=== PATIENT | male | born 1965 | race Caucasian/White ===

== ENCOUNTER 2016-05-17 18:04 | Emergency (ER) | payer BC ==
--- NOTE | 2016-05-17 18:33 | Emergency Department Report ---
Chief Complaint: Neuro Symptoms/Deficit Stated Complaint: STROKE SYMPTOMS Time Seen by Provider: 05/17/16 18:26 - HPI History of Present Illness: 51-year-old male presents today with sudden onset of headache times one hour. Positive for history of headaches but states this is worse than ever. Positive for decreased vision and photophobia. Also complaining of chest pain with left arm involvement. Denies nausea, vomiting, fever, chills, abdominal pain, shortness of breath. - ROS Review of Systems: Per HPI - Exam Vital Signs: Vital Signs 05/17/16 18:08 Temperature 98.6 F Pulse Rate 82 Respiratory 18 Rate Blood Pressure 130/86 O2 Sat by Pulse 99 Oximetry Physical Exam: General: 51-year-old male in no acute distress. Well-developed, well-nourished. CV: Regular rate and rhythm. Lungs: Clear to auscultation bilaterally. 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 Due to findings the following was ordered: ED Disposition for MSE Condition: Stable
--- NOTE | 2016-05-17 19:02 | Cat Scan Report ---
FINAL REPORT EXAM: CT HEAD/BRAIN WO CON HISTORY: suspected stroke headaches and dizziness TECHNIQUE: Standard unenhanced CT of the head at 5.0 millimeter axial increments PRIORS: None. FINDINGS: The ventricular system is normal in size and configuration. There is no evidence for parenchymal volume loss. There is no evidence for mass lesion, mass effect, midline shift, acute intracranial hemorrhage, or acute ischemia/ infarction. Visualized paranasal sinuses demonstrates mild mucosal thickening in the inferior left maxillary sinus. IMPRESSION: No acute intracranial process noted. Mild mucosal thickening in the left maxillary sinus
[2016-05-17 20:12] LABS: Basophils % (Auto) 0.4 % (0.0-1.8); Eosinophils % (Auto) 2.1 % (0.0-4.3); Hematocrit 42.7 % (35.5-45.6); Hemoglobin 14.1 gm/dl (11.8-15.2); Mean Corpuscular HGB Conc 33 % (32-34); Mean Corpuscular Hemoglobin 30 pg (28-32); Mean Corpuscular Volume 89 fl (84-94); Platelet Count 182 K/mm3 (140-440); Red Blood Count 4.78 M/mm3 (3.65-5.03); Red Cell Distribution Width 14.1 % (13.2-15.2); White Blood Count 8.1 K/mm3 (4.5-11.0)
[2016-05-17 20:19] LABS: INR 1.11 (0.87-1.13)
[2016-05-17 20:20] LABS: Partial Thromboplastin Time 30.9 Sec. (24.2-36.6)
[2016-05-17 20:29] LABS: Creatine Kinase MB 3.1 ng/mL (0.0-4.0)
[2016-05-17 20:33] LABS: Anion Gap 16 mmol/L; BUN/Creatinine Ratio 6.66; Blood Urea Nitrogen 6 mg/dL (9-20); Calcium 8.5 mg/dL (8.4-10.2); Carbon Dioxide 26 mmol/L (22-30); Chloride 103.6 mmol/L (98-107); Creatine Kinase 334 units/L (55-170); Glucose 125 mg/dL (75-100); Potassium 3.5 mmol/L (3.6-5.0); Sodium 142 mmol/L (137-145)
[2016-05-17 22:56] VITALS: BP 121/74
--- NOTE | 2016-05-19 14:25 | ED Elopement Review ---
ED Pt Elopement review - Results review Lab results: Laboratory Tests 05/17/16 05/17/16 05/17/16 18:16 19:23 19:23 WBC 8.1 RBC 4.78 Hgb 14.1 Hct 42.7 MCV 89 MCH 30 MCHC 33 RDW 14.1 Plt Count 182 Lymph % (Auto) 22.4 [place] % (Auto) 7.4 H Eos % (Auto) 2.1 Baso % (Auto) 0.4 Lymph # 1.8 [place] # 0.6 Eos # 0.2 Baso # 0.0 Seg Neutrophils % 67.7 Seg Neutrophils # 5.5 PT 14.2 INR 1.11 APTT 30.9 Thrombin Time 15.7 Sodium Potassium Chloride Carbon Dioxide Anion Gap BUN Creatinine Estimated GFR BUN/Creatinine Ratio Glucose POC Glucose 107 H Calcium Total Creatine Kinase CK-MB (CK-2) Rel Index Troponin T 05/17/16 19:23 WBC RBC Hgb Hct MCV MCH MCHC RDW Plt Count Lymph % (Auto) [place] % (Auto) Eos % (Auto) Baso % (Auto) Lymph # [place] # Eos # Baso # Seg Neutrophils % Seg Neutrophils # PT INR APTT Thrombin Time Sodium 142 Potassium 3.5 L Chloride 103.6 Carbon Dioxide 26 Anion Gap 16 BUN 6 L Creatinine 0.9 Estimated GFR > 60 BUN/Creatinine Ratio 6.66 Glucose 125 H POC Glucose Calcium 8.5 Total Creatine Kinase 334 H CK-MB (CK-2) Rel Index 0.9 Troponin T < 0.010 - Call Back decision Pt Call Back Decision: Call pt to return to ED [facility] (chest pain and shortness of breath should be further evaluated)
== END 2016-05-17 22:58 | disposition left against medical advice (07) ==
LOC: ED 18:04
DX: R51 Headache (principal); R07.9 Chest pain, unspecified; Z53.21 Procedure and treatment not carried out due to patient leaving prior to being seen by health care provider
CPT/HCPCS: 36415; 70450; 80048; 82550; 82553; 82962; 84484; 85025; 85610; 85670; 85730; 93005; 93010

== ENCOUNTER 2017-09-02 03:07 | Emergency (ER) | payer BC ==
[2017-09-02] MEDS ORDERED: ASPIRIN PO ONE (03:28)
[2017-09-02 03:54] LABS: Basophils % (Auto) 0.4 % (0.0-1.8); Eosinophils # (Auto) 0.1 K/mm3 (0.0-0.4); Eosinophils % (Auto) 0.9 % (0.0-4.3); Hematocrit 44.7 % (35.5-45.6); Hemoglobin 15.3 gm/dl (11.8-15.2); Lymphocytes % (Auto) 31.5 % (13.4-35.0); Mean Corpuscular HGB Conc 34 % (32-34); Mean Corpuscular Hemoglobin 31 pg (28-32); Mean Corpuscular Volume 90 fl (84-94); Monocytes # (Auto) 0.5 K/mm3 (0.0-0.8); Monocytes % (Auto) 8.2 % (0.0-7.3); Platelet Count 165 K/mm3 (140-440); Red Blood Count 4.99 M/mm3 (3.65-5.03); Red Cell Distribution Width 14.2 % (13.2-15.2)
[2017-09-02 04:18] LABS: BUN/Creatinine Ratio 9; Blood Urea Nitrogen 7 mg/dL (9-20); Calcium 8.3 mg/dL (8.4-10.2); Hemolysis Index 3
--- NOTE | 2017-09-02 04:26 | XRay Report ---
FINAL REPORT EXAM: XR CHEST ROUTINE 2V HISTORY: SOB. TECHNIQUE: Frontal and lateral radiographs of the chest were obtained. No prior studies are available for comparison. FINDINGS: The cardiac silhouette and mediastinum are within normal limits. There is minimal biapical pleural thickening/scarring. The lungs are otherwise clear bilaterally, without focal infiltrate or effusion. There is no pneumothorax. Mild spondylotic changes seen in the mid mid thoracic spine. IMPRESSION: No active disease seen in the chest.
--- NOTE | 2017-09-02 06:07 | Emergency Department Report ---
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 He has experienced constant chest pain for the past 3 days it is substernal and described as a "knot". It does not radiate. It is made clearly worse by bending or twisting or sitting up in the gurney. The patient states he's had cough with occasional brown sputum. He also states that it deep inspiration only accentuates the pain. However, it clearly is augmented by simple movement of the torso. The patient was concerned because he got nauseated yesterday. He has not been sweaty or short of breath. He denies any recent travel. The patient reports that admission [facility] 2 or 3 years ago with negative stress testing. He states he was treated for congestive heart failure which was "due to stress". He states that this went away on its own and he does not need any further medication. MD Complaint: chest pain -: days(s) Pain Radiation: none - Related Data Previous Rx's Medication Instructions Recorded Last Taken Type Azithromycin [Zithromax Z-OBDULIO] 250 mg PO DAILY #6 tab 09/02/17 Unknown Rx traMADol [Ultram] 50 mg PO Q6HR PRN #14 tablet 09/02/17 Unknown Rx Allergies Allergy/AdvReac Type Severity Reaction Status Date / Time No Known Allergies Allergy Unverified 05/17/16 18:08 Heart Score - HEART Score History: Slightly suspicious EKG: Normal Age: 45-65 Risk factors: 1-2 risk factors Troponin: < normal limit HEART Score: 2 - Critical Actions Critical Actions: 0-3 pts:0.9-1.7%risk of adverse cardiac event.Candidate for discharge ED Review of Systems ROS: Stated complaint: CHEST PAIN Other details as noted in HPI Constitutional: denies: chills, fever Eyes: denies: eye pain, eye discharge, vision change ENT: denies: ear pain, throat pain Respiratory: cough. denies: shortness of breath, wheezing Cardiovascular: chest pain. denies: palpitations Endocrine: no symptoms reported Gastrointestinal: denies: abdominal pain, nausea, diarrhea Genitourinary: denies: urgency, dysuria Musculoskeletal: denies: back pain, joint swelling, arthralgia Skin: denies: rash, lesions Neurological: denies: headache, weakness, paresthesias Psychiatric: denies: anxiety, depression Hematological/Lymphatic: denies: easy bleeding, easy bruising ED Past Medical Hx - Past Medical History Previous Medical History?: Yes Hx Diabetes: Yes - Surgical History Past Surgical History?: No - Social History Smoking Status: Current Every Day Smoker Substance Use Type: None - Medications Home Medications: Home Medications Medication Instructions Recorded Confirmed Last Taken Type Azithromycin [Zithromax Z-OBDULIO] 250 mg PO DAILY #6 tab 09/02/17 Unknown Rx traMADol [Ultram] 50 mg PO Q6HR PRN #14 tablet 09/02/17 Unknown Rx ED Physical Exam - General Limitations: No Limitations General appearance: alert, in no apparent distress - Head Head exam: Present: atraumatic, normocephalic - Eye Eye exam: Present: normal appearance - ENT ENT exam: Present: mucous membranes moist - Neck Neck exam: Present: normal inspection - Respiratory Respiratory exam: Present: normal lung sounds bilaterally. Absent: respiratory distress - Cardiovascular Cardiovascular Exam: Present: regular rate, normal rhythm. Absent: systolic murmur, diastolic murmur, rubs, gallop - GI/Abdominal GI/Abdominal exam: Present: soft, normal bowel sounds. Absent: distended, tenderness, guarding, rebound, rigid - Rectal Rectal exam: Present: deferred - Extremities Exam Extremities exam: Present: normal inspection - Back Exam Back exam: Present: normal inspection - Neurological Exam Neurological exam: Present: alert, oriented X3, CN II-XII intact. Absent: motor sensory deficit - Psychiatric Psychiatric exam: Present: normal affect, normal mood - Skin Skin exam: Present: warm, dry, intact, normal color. Absent: rash ED Course Vital Signs 09/02/17 09/02/17 09/02/17 03:11 03:12 03:20 Temperature 99 F Pulse Rate 86 87 91 H Respiratory 20 Rate Blood Pressure 114/60 114/60 Blood Pressure [Left] O2 Sat by Pulse 98 97 98 Oximetry 09/02/17 09/02/17 09/02/17 05:00 05:05 06:31 Temperature 98.8 F Pulse Rate 80 78 81 Respiratory 14 12 19 Rate Blood Pressure 103/56 Blood Pressure 112/56 [Left] O2 Sat by Pulse 98 99 94 Oximetry 09/02/17 07:01 Temperature Pulse Rate 75 Respiratory 15 Rate Blood Pressure 101/47 Blood Pressure [Left] O2 Sat by Pulse 96 Oximetry - Reevaluation(s) Reevaluation #1: Patient resting comfortably. Portable was of benefit. D-dimer is negative. Second troponin is negative. Patient is asymptomatic. He is appropriate for outpatient management. He will be given an analgesic and an antibiotic. 09/02/17 07:55 ED Medical Decision Making - Lab Data Result diagrams: 09/02/17 03:34 09/02/17 03:34 Laboratory Results - last 24 hr 09/02/17 09/02/17 03:34 03:34 WBC 6.4 RBC 4.99 Hgb 15.3 H Hct 44.7 MCV 90 MCH 31 MCHC 34 RDW 14.2 Plt Count 165 Lymph % (Auto) 31.5 [place] % (Auto) 8.2 H Eos % (Auto) 0.9 Baso % (Auto) 0.4 Lymph # 2.0 [place] # 0.5 Eos # 0.1 Baso # 0.0 Seg Neutrophils % 59.0 Seg Neutrophils # 3.8 Sodium 139 Potassium 3.5 L Chloride 100.5 Carbon Dioxide 29 Anion Gap 13 BUN 7 L Creatinine 0.8 Estimated GFR > 60 BUN/Creatinine Ratio 9 Glucose 168 H Calcium 8.3 L Troponin T < 0.010 Laboratory Results - last 24 hr 09/02/17 09/02/17 09/02/17 03:34 03:34 06:19 WBC 6.4 RBC 4.99 Hgb 15.3 H Hct 44.7 MCV 90 MCH 31 MCHC 34 RDW 14.2 Plt Count 165 Lymph % (Auto) 31.5 [place] % (Auto) 8.2 H Eos % (Auto) 0.9 Baso % (Auto) 0.4 Lymph # 2.0 [place] # 0.5 Eos # 0.1 Baso # 0.0 Seg Neutrophils % 59.0 Seg Neutrophils # 3.8 PT INR APTT D-Dimer Sodium 139 Potassium 3.5 L Chloride 100.5 Carbon Dioxide 29 Anion Gap 13 BUN 7 L Creatinine 0.8 Estimated GFR > 60 BUN/Creatinine Ratio 9 Glucose 168 H Calcium 8.3 L Total Bilirubin Direct Bilirubin AST ALT Alkaline Phosphatase Troponin T < 0.010 < 0.010 NT-Pro-B Natriuret Pep Total Protein Albumin Albumin/Globulin Ratio 09/02/17 09/02/17 06:19 06:19 WBC RBC Hgb Hct MCV MCH MCHC RDW Plt Count Lymph % (Auto) [place] % (Auto) Eos % (Auto) Baso % (Auto) Lymph # [place] # Eos # Baso # Seg Neutrophils % Seg Neutrophils # PT 13.8 INR 1.01 APTT 29.7 D-Dimer 186.68 Sodium Potassium Chloride Carbon Dioxide Anion Gap BUN Creatinine Estimated GFR BUN/Creatinine Ratio Glucose Calcium Total Bilirubin 0.20 Direct Bilirubin < 0.2 AST 17 ALT 19 Alkaline Phosphatase 107 Troponin T NT-Pro-B Natriuret Pep 25.61 Total Protein 6.6 Albumin 3.7 L Albumin/Globulin Ratio 1.3 - EKG Data -: EKG Interpreted by Me EKG shows normal: sinus rhythm, axis, intervals, QRS complexes, ST-T waves Rate: normal - EKG Data When compared to previous EKG there are: no significant change Interpretation: no acute changes - Radiology Data interpreted by me: Chest x-ray no acute process Critical care attestation.: If time is entered above; I have spent that time in minutes in the direct care of this critically ill patient, excluding procedure time. ED Disposition Clinical Impression: Atypical chest pain Acute bronchitis Qualifiers: Bronchitis organism: unspecified organism Qualified Code(s): J20.9 - Acute bronchitis, unspecified Disposition: DC-01 TO HOME OR SELFCARE Is pt being admited?: No Does the pt Need Aspirin: No Condition: Stable Instructions: Chest Pain (ED), Acute Bronchitis (ED) Additional Instructions: Follow-up with primary care and see name of scoreboard operator referral. Return any significant pain acute change as necessary. Prescriptions: Azithromycin [Zithromax Z-OBDULIO] 250 mg PO DAILY #6 tab traMADol [Ultram] 50 mg PO Q6HR PRN #14 tablet PRN Reason: Pain Referrals: GARETT DAMIAN MD [Staff Physician] - 3-5 Days usual, primary care provider [Other] - 3-5 Days Time of Disposition: 08:05
[2017-09-02] MEDS ORDERED: TORADOL IV ONE (06:13)
[2017-09-02 06:51] LABS: Alanine Aminotransferase 19 units/L (7-56); Albumin 3.7 g/dL (3.9-5)
[2017-09-02 06:52] LABS: Bilirubin,Direct < 0.2 mg/dL (0-0.2)
[2017-09-02 07:08] LABS: INR 1.01 (0.87-1.13)
[2017-09-02 07:09] LABS: Partial Thromboplastin Time 29.7 Sec. (24.2-36.6)
[2017-09-02 08:59] VITALS: BP 112/49
== END 2017-09-02 09:00 | disposition home or self-care (01) ==
LOC: ED 03:07
DX: J20.9 Acute bronchitis, unspecified (principal); R07.89 Other chest pain; E11.9 Type 2 diabetes mellitus without complications; F17.200 Nicotine dependence, unspecified, uncomplicated
CPT/HCPCS: 36415; 71046; 80048; 80074; 83880; 84484; 85025; 85379; 85610; 85730; 93005; 93010; 96374; 99284; J1885

== ENCOUNTER 2018-07-18 20:15 | Emergency (ER) | payer BC ==
[2018-07-18] MEDS ORDERED: ASPIRIN PO ONE (20:25)
[2018-07-18 21:31] LABS: Basophils % (Auto) 0.5 % (0.0-1.8); Eosinophils # (Auto) 0.1 K/mm3 (0.0-0.4); Eosinophils % (Auto) 0.9 % (0.0-4.3); Hematocrit 42.4 % (35.5-45.6); Hemoglobin 14.9 gm/dl (11.8-15.2); Lymphocytes # (Auto) 2.9 K/mm3 (1.2-5.4); Lymphocytes % (Auto) 32.5 % (13.4-35.0); Mean Corpuscular HGB Conc 35 % (32-34); Mean Corpuscular Volume 90 fl (84-94); Monocytes # (Auto) 0.6 K/mm3 (0.0-0.8); Monocytes % (Auto) 6.9 % (0.0-7.3); Platelet Count 173 K/mm3 (140-440); Red Blood Count 4.73 M/mm3 (3.65-5.03); Red Cell Distribution Width 14.9 % (13.2-15.2)
[2018-07-18 21:50] LABS: BUN/Creatinine Ratio 13; Blood Urea Nitrogen 12 mg/dL (9-20); Calcium 8.7 mg/dL (8.4-10.2); Hemolysis Index 34
--- NOTE | 2018-07-18 23:16 | XRay Report ---
PROCEDURE: XR CHEST 1V AP TECHNIQUE: Single AP view of the chest HISTORY: Chest Pain COMPARISONS: None available FINDINGS: Cardiomediastinal silhouette is within normal limits. No pulmonary infiltrate, effusion, or pneumotho rax is seen. No acute osseous abnormality is seen. IMPRESSION: No pulmonary infiltrates are identified. This document is electronically signed by Lilian Abel MD., July 18 2018 11:14:14 PM ET
[2018-07-19] MEDS ORDERED: TYLENOL PO ONE (01:20)
[2018-07-19] MEDS ORDERED: TYLENOL ONE (01:21)
--- NOTE | 2018-07-19 02:32 | Emergency Department Report ---
ED General Adult HPI - General Chief complaint: Chest Pain Stated complaint: CHEST PAIN/SOB Time Seen by Provider: 07/19/18 02:29 Source: patient Mode of arrival: Ambulatory Limitations: No Limitations - History of Present Illness Initial comments: 53-year-old male with a past medical history of diabetes that is controlled with diet alone and CHF presents with the complaint of chest pain. Patient states he hasn't had chest pain for the duration 3 weeks which has been intermittent. Patient states that today he noted chest pain that radiated to his left arm. Patient complains of having dizziness as well but no LOC. Patient also states that he's been having a cough with phlegm production. Patient denies any fever. Patient denies any lower extremity swelling. Patient denies any history of PE or DVT. Severity scale (0 -10): 5 - Related Data Previous Rx's Medication Instructions Recorded Last Taken Type Azithromycin [Zithromax Z-OBDULIO] 250 mg PO DAILY #6 tab 09/02/17 Unknown Rx traMADol [Ultram] 50 mg PO Q6HR PRN #14 tablet 09/02/17 Unknown Rx HYDROcodone/ACETAMINOPHEN [[place] 1 each PO Q8HR #20 tablet 07/19/18 Unknown Rx 5-325 Tablet] Allergies Allergy/AdvReac Type Severity Reaction Status Date / Time No Known Allergies Allergy Unverified 05/17/16 18:08 ED Review of Systems ROS: Stated complaint: CHEST PAIN/SOB Other details as noted in HPI Constitutional: denies: chills, fever Eyes: denies: eye pain, eye discharge, vision change ENT: denies: ear pain, throat pain Respiratory: denies: cough, shortness of breath, wheezing Cardiovascular: chest pain. denies: palpitations Endocrine: no symptoms reported Gastrointestinal: denies: abdominal pain, nausea, diarrhea Genitourinary: denies: urgency, dysuria Musculoskeletal: denies: back pain, joint swelling, arthralgia Skin: denies: rash, lesions Neurological: denies: headache, weakness, paresthesias Psychiatric: denies: anxiety, depression Hematological/Lymphatic: denies: easy bleeding, easy bruising ED Past Medical Hx - Past Medical History Previous Medical History?: Yes Hx Congestive Heart Failure: Yes Hx Diabetes: Yes - Surgical History Past Surgical History?: No - Social History Smoking Status: Never Smoker Substance Use Type: None - Medications Home Medications: Home Medications Medication Instructions Recorded Confirmed Last Taken Type Azithromycin [Zithromax Z-OBDULIO] 250 mg PO DAILY #6 tab 09/02/17 Unknown Rx traMADol [Ultram] 50 mg PO Q6HR PRN #14 tablet 09/02/17 Unknown Rx HYDROcodone/ACETAMINOPHEN [[place] 1 each PO Q8HR #20 tablet 07/19/18 Unknown Rx 5-325 Tablet] ED Physical Exam - General Limitations: No Limitations General appearance: alert, in no apparent distress - Head Head exam: Present: atraumatic, normocephalic - Eye Eye exam: Present: normal appearance - ENT ENT exam: Present: mucous membranes moist - Neck Neck exam: Present: normal inspection - Respiratory Respiratory exam: Present: normal lung sounds bilaterally. Absent: respiratory distress - Cardiovascular Cardiovascular Exam: Present: regular rate, normal rhythm. Absent: systolic murmur, diastolic murmur, rubs, gallop - GI/Abdominal GI/Abdominal exam: Present: soft, normal bowel sounds - Rectal Rectal exam: Present: deferred - Extremities Exam Extremities exam: Present: normal inspection, tenderness (upon palpation of the left shoulder), other (pain with active range of motion of left shoulder with no evidence of erythema) - Back Exam Back exam: Present: normal inspection - Neurological Exam Neurological exam: Present: alert, oriented X3 - Psychiatric Psychiatric exam: Present: normal affect, normal mood - Skin Skin exam: Present: warm, dry, intact, normal color. Absent: rash ED Course Vital Signs 07/18/18 07/19/18 07/19/18 21:36 02:10 02:11 Temperature 98.3 F Pulse Rate 83 73 70 Respiratory 18 10 L Rate Blood Pressure 116/59 117/57 [Right] O2 Sat by Pulse 96 99 Oximetry ED Medical Decision Making - Lab Data Result diagrams: 07/18/18 21:01 07/18/18 21:01 - EKG Data EKG shows normal: sinus rhythm Rate: normal - EKG Data Interpretation: no acute changes - Medical Decision Making Patient has a normal EKG and a normal chest x-ray. Patient has 2 sets of troponins which are negative as well. Patient given Percocet for pain relief emergency department. Patient be discharged to follow up with cardiology as an outpatient. - Differential Diagnosis arrhythmia; STEMI; pneumonia; electrolyte abnormality Critical care attestation.: If time is entered above; I have spent that time in minutes in the direct care of this critically ill patient, excluding procedure time. ED Disposition Clinical Impression: Chest pain, Osteoarthritis Disposition: TO HOME OR SELFCARE Is pt being admited?: No Condition: Stable Instructions: Chest Pain (ED) Prescriptions: HYDROcodone/ACETAMINOPHEN [[place] 5-325 Tablet] 1 each PO Q8HR #20 tablet Referrals: CORNELL MEDINA MD [Primary Care Provider] - 3-5 Days ANDRES ROMERO MD [Staff Physician] - 3-5 Days Time of Disposition: 03:26 Print Language: CZECH
[2018-07-19] MEDS ORDERED: PERCOCET 5/325 PO STA (03:04)
[2018-07-19 03:57] VITALS: BP 103/55
== END 2018-07-19 04:15 | disposition home or self-care (01) ==
LOC: ED 20:15
DX: M19.90 Unspecified osteoarthritis, unspecified site (principal); R07.9 Chest pain, unspecified; I50.9 Heart failure, unspecified; E11.9 Type 2 diabetes mellitus without complications
CPT/HCPCS: 36415; 71045; 80048; 84484; 85025

== ENCOUNTER 2018-07-24 13:03 | Emergency (ER) | payer BC ==
--- NOTE | 2018-07-24 13:10 | Emergency Department Report ---
Stated Complaint: LEFT SHOULDER PAIN/PELVIC PAIN Time Seen by Provider: 07/24/18 13:08 - HPI History of Present Illness: here for left shoulder pain and left pelvic pain ? hernia pmh chf dm psh none rx percocet finished cig etoh none no drugs here the other day for same but we only looked at his chest mse completed no life threat MSE screening note: Focused history and physical exam performed. Due to findings the following was ordered: ED Disposition for MSE Condition: Stable
[2018-07-24 13:12] VITALS: BP 125/63
--- NOTE | 2018-07-24 14:00 | XRay Report ---
LEFT SHOULDER: History: Shoulder pain. Routine views demonstrate normal bony and soft tissue structures with normal joint alignment of the shoulder. IMPRESSION: No acute abnormality is detected.
[2018-07-24] MEDS ORDERED: MORPHINE IV ONE ×2 (15:21→18:20)
[2018-07-24] MEDS ORDERED: NACL 0.9% 1000 ML 1,000 ML IV ONE (15:21)
[2018-07-24] MEDS ORDERED: ZOFRAN IV ONE (15:21)
--- NOTE | 2018-07-24 15:26 | Emergency Department Report ---
<BRISEYDA MELISSA - Last Filed: 07/24/18 15:22> ED Abdominal Pain HPI - General Chief Complaint: Abdominal Pain Stated Complaint: LEFT SHOULDER PAIN/PELVIC PAIN Time Seen by Provider: 07/24/18 13:08 Source: patient Mode of arrival: Ambulatory Limitations: No Limitations - History of Present Illness Initial Comments: Patient is 53 years old male with history of diabetes. Patient presented to the ER complaining of left lower quadrant abdominal pain and left inguinal swelling. Patient denied any fever, nausea or vomiting. Patient also complaining of left shoulder pain for the last 3 days but he denied any injury. MD Complaint: abdominal pain -: days(s) Location: LLQ Radiation: none Migration to: no migration Severity: moderate Quality: aching Consistency: constant - Related Data Previous Rx's Medication Instructions Recorded Last Taken Type Azithromycin [Zithromax Z-OBDULIO] 250 mg PO DAILY #6 tab 09/02/17 Unknown Rx traMADol [Ultram] 50 mg PO Q6HR PRN #14 tablet 09/02/17 Unknown Rx HYDROcodone/ACETAMINOPHEN [[place] 1 each PO Q8HR #20 tablet 07/19/18 Unknown Rx 5-325 Tablet] Acetaminophen/Codeine [Tylenol 1 tab PO Q6H PRN #12 tab 07/24/18 Unknown Rx /Codeine # 3 tab] Ondansetron [Zofran Odt] 4 mg PO Q8HR PRN #20 tab.rapdis 07/24/18 Unknown Rx Allergies Allergy/AdvReac Type Severity Reaction Status Date / Time No Known Allergies Allergy Unverified 05/17/16 18:08 ED Review of Systems Comment: All other systems reviewed and negative Constitutional: denies: chills, fever Respiratory: denies: cough, orthopnea, shortness of breath, SOB with exertion Cardiovascular: denies: chest pain, palpitations Gastrointestinal: abdominal pain. denies: nausea, vomiting, diarrhea, constipation, hematemesis, melena, hematochezia Genitourinary: denies: urgency, frequency, hematuria, testicular pain, testicular mass Musculoskeletal: arthralgia Neurological: denies: headache ED Past Medical Hx - Past Medical History Hx Congestive Heart Failure: Yes Hx Diabetes: Yes - Surgical History Past Surgical History?: No - Social History Smoking Status: Current Some Day Smoker Substance Use Type: None - Medications Home Medications: Home Medications Medication Instructions Recorded Confirmed Last Taken Type Azithromycin [Zithromax Z-OBDULIO] 250 mg PO DAILY #6 tab 09/02/17 Unknown Rx traMADol [Ultram] 50 mg PO Q6HR PRN #14 tablet 09/02/17 Unknown Rx HYDROcodone/ACETAMINOPHEN [[place] 1 each PO Q8HR #20 tablet 07/19/18 Unknown Rx 5-325 Tablet] Acetaminophen/Codeine [Tylenol 1 tab PO Q6H PRN #12 tab 07/24/18 Unknown Rx /Codeine # 3 tab] Ondansetron [Zofran Odt] 4 mg PO Q8HR PRN #20 tab.rapdis 07/24/18 Unknown Rx ED Physical Exam - General Limitations: No Limitations General appearance: alert, in no apparent distress - Head Head exam: Present: atraumatic, normocephalic, normal inspection - Eye Eye exam: Present: normal appearance, PERRL - ENT ENT exam: Present: normal exam, normal orophraynx, mucous membranes moist - Neck Neck exam: Present: normal inspection, full ROM. Absent: tenderness, meningismus, lymphadenopathy, thyromegaly - Respiratory Respiratory exam: Present: normal lung sounds bilaterally. Absent: respiratory distress, wheezes, rales, rhonchi, chest wall tenderness, accessory muscle use, decreased breath sounds, prolonged expiratory - Cardiovascular Cardiovascular Exam: Present: regular rate, normal rhythm, normal heart sounds - GI/Abdominal GI/Abdominal exam: Present: soft, normal bowel sounds. Absent: distended, tenderness, guarding, rebound, rigid, organomegaly, mass, bruit, pulsatile mass, hernia - exam: Absent: normal inspection, testicular tenderness, urethral discharge, scrotal swelling, vertical testicular lie External exam: Present: swelling (left inguinal hernia). Absent: erythema, lesions, lacerations, ecchymosis, bleeding - Extremities Exam Extremities exam: Present: normal inspection, full ROM, normal capillary refill. Absent: pedal edema, calf tenderness - Back Exam Back exam: Present: normal inspection, full ROM, CVA tenderness (L) - Neurological Exam Neurological exam: Present: alert, oriented X3, CN II-XII intact, normal gait, reflexes normal - Skin Skin exam: Present: warm, intact, normal color ED Disposition Clinical Impression: Left shoulder pain Qualifiers: Chronicity: unspecified Qualified Code(s): M25.512 - Pain in left shoulder Abdominal pain Qualifiers: Abdominal location: lower abdomen, unspecified Qualified Code(s): R10.30 - Lower abdominal pain, unspecified Nausea & vomiting Qualifiers: Vomiting type: unspecified Vomiting Intractability: non-intractable Qualified Code(s): R11.2 - Nausea with vomiting, unspecified Disposition: DC-01 TO HOME OR SELFCARE Condition: Stable Instructions: Acute Abdominal Pain (ED), Acute Nausea and Vomiting (ED) Additional Instructions: Follow-up with a primary care/gastrointestinal/orthopedic doctor in 3-5 days or if symptoms worsen and continue return to emergency room as soon as possible. Prescriptions: Acetaminophen/Codeine [Tylenol /Codeine # 3 tab] 1 tab PO Q6H PRN #12 tab PRN Reason: Pain , Severe (7-10) Ondansetron [Zofran Odt] 4 mg PO Q8HR PRN #20 tab.rapdis PRN Reason: Nausea Referrals: VANESSA MAK [Other] - 3-5 Days PRIMARY MD MARÍA [Referring] - 3-5 Days SONIA HERNANDEZ MD [Staff Physician] - 3-5 Days [facility] [Outside] - 3-5 Days [facility] [Outside] - 3-5 Days [facility] [Provider Group] - 3-5 Days GENESIS BARNES MD [Staff Physician] - 3-5 Days Forms: Work/School Release Form(ED) <CHAS MITCHELL - Last Filed: 07/24/18 18:38> ED Review of Systems ROS: Stated complaint: LEFT SHOULDER PAIN/PELVIC PAIN Other details as noted in HPI ED Course Vital Signs 07/24/18 13:08 Temperature 97.4 F L Pulse Rate 83 Respiratory 18 Rate Blood Pressure 125/63 O2 Sat by Pulse 96 Oximetry ED Medical Decision Making - Lab Data Result diagrams: 07/24/18 15:25 07/24/18 15:25 - Medical Decision Making This is a 53-year-old male that presents with abdominal pain and left shoulder pain. Patient was orginally seen by Dr. Melissa and signed out to me for a pending CT results. As per Dr. Melissa, patient can be discharged if CT is wit hin normal limits. Labs obtained. CT with contrast of abdomen obtained and dictated by the radiologist. Patient is notified of the report with no questions noted by the patient. Vital signs are stable prior to discharge. Patient received medical treatment in the ED which patient stated symptoms has resolved and subsided. A by mouth challenge has been obtained and patient tolerated well with no nausea vomiting. Patient was notified of strict precautions of appendicitis symptoms and to return to the ED if symptoms occurs as soon as possible. Patient was also instructed to Follow-up with a primary care doctor in 3-5 days or if symptoms worsen and continue return to emergency room as soon as possible. At time of discharge, the patient does not seem toxic or ill in appearance. No acute signs of distress noted. Patient agrees to discharge treatment plan of care. No further questions noted by the patient. Critical care attestation.: If time is entered above; I have spent that time in minutes in the direct care of this critically ill patient, excluding procedure time. ED Disposition Is pt being admited?: No Does the pt Need Aspirin: No
[2018-07-24 15:57] LABS: Basophils % (Auto) 0.3 % (0.0-1.8); Eosinophils # (Auto) 0.1 K/mm3 (0.0-0.4); Eosinophils % (Auto) 1.3 % (0.0-4.3); Hematocrit 44.8 % (35.5-45.6); Hemoglobin 15.3 gm/dl (11.8-15.2); Lymphocytes # (Auto) 1.9 K/mm3 (1.2-5.4); Lymphocytes % (Auto) 29.8 % (13.4-35.0); Mean Corpuscular HGB Conc 34 % (32-34); Mean Corpuscular Volume 91 fl (84-94); Monocytes # (Auto) 0.5 K/mm3 (0.0-0.8); Monocytes % (Auto) 7.8 % (0.0-7.3); Platelet Count 175 K/mm3 (140-440); Red Blood Count 4.95 M/mm3 (3.65-5.03); Red Cell Distribution Width 15.1 % (13.2-15.2)
[2018-07-24 16:19] LABS: Alanine Aminotransferase 13 units/L (7-56); BUN/Creatinine Ratio 10; Blood Urea Nitrogen 9 mg/dL (9-20); Calcium 8.8 mg/dL (8.4-10.2); Hemolysis Index 15
[2018-07-24 16:26] LABS: Bilirubin,Direct < 0.2 mg/dL (0-0.2)
[2018-07-24 17:54] LABS: Bilirubin,Urine NEG (Negative); Blood,Urine NEG (Negative); Color,Urine Straw (Yellow); Protein,Urine <15 mg/dL mg/dL (Negative); Urobilinogen,Urine < 2.0 mg/dL (<2.0)
--- NOTE | 2018-07-24 18:33 | Cat Scan Report ---
PROCEDURE: CT ABDOMEN PELVIS W CON HISTORY: Abdominal Pain FINDINGS: Contrast-enhanced CT of the abdomen and pelvis was performed following the intravenous admi nistration of iodinated contrast. The heart is normal in size. The lung bases appear clear. ABDOMEN: There is wall thickening of the gastric antrum, images 50-52, likely gastritis. There is fatty infiltration of the liver without focal hepatic lesion. The spleen is normal in size a t 11.7 x 5.2 cm. The adrenal glands and pancreas are within normal limits. The gallbladder is unremarkable. There is no renal or ureteral calculus. There is a left renal cyst, 1.9 cm. There is a subcentimeter right renal cyst. There is no small or large bowel obstruction. The abdominal aorta is normal in size. Pelvis: There is a normal appendix. There is no evidence of diverticulitis. The prostate and urinary bladder are within normal limits. There is no free air. IMPRESSION: ABDOMEN: Wall thickening of gastric antrum, likely gastritis Fatty infiltration of the liver Pelvis: Normal appendix This document is electronically signed by Morris Marie MD., July 24 2018 06:31:27 PM ET
== END 2018-07-24 18:50 | disposition home or self-care (01) ==
LOC: ED 13:03
DX: R10.32 Left lower quadrant pain (principal); R11.2 Nausea with vomiting, unspecified; M25.512 Pain in left shoulder; I50.9 Heart failure, unspecified; E11.9 Type 2 diabetes mellitus without complications; F17.200 Nicotine dependence, unspecified, uncomplicated
CPT/HCPCS: 36415; 73030; 74177; 80048; 80076; 81001; 83690; 85025; 96361; 96374; 96375; 96376; 99284; J2270; J2405; J7030; Q9967

== ENCOUNTER 2018-08-17 05:45 | Day surgery (SDC) | payer BC ==
[~2018-08-17 05:45] MED LIST: LACTATED RINGERS 1,000 ML IV SCH
[2018-08-17] MEDS ORDERED: NEURONTIN PO NR (06:00)
[2018-08-17] MEDS ORDERED: VERSED IV NR (06:00)
[2018-08-17] MEDS ORDERED: NACL BACTERIOSTATIC INFILTRATI ONE (06:23)
[2018-08-17] MEDS ORDERED: ANCEF/STERILE WATER 2 GM/20 ML IV NR (07:00)
[2018-08-17] MEDS ORDERED: XYLOCAINE MPF 2% ONE (07:00)
[2018-08-17] MEDS ORDERED: SUBLIMAZE ONE (07:00)
[2018-08-17] MEDS ORDERED: ZEMURON IV ONE (07:00)
[2018-08-17] MEDS ORDERED: DIPRIVAN 10 MG/ML IV ONE (07:01)
[2018-08-17] MEDS ORDERED: XYLOCAINE 1% 20 mL ONE (07:29)
[2018-08-17] MEDS ORDERED: MARCAINE 0.5% INFILTRATI ONE ×2 (07:29→09:05)
[2018-08-17] MEDS ORDERED: ROBINUL ONE (08:18)
[2018-08-17] MEDS ORDERED: DILAUDID IV PRN (08:28)
--- NOTE | 2018-08-17 08:28 | Anesthesia Consultation ---
Anesthesia Consult and Med Hx Date of service: 08/17/18 - Airway Anesthetic Teeth Evaluation: Good ROM Head & Neck: Adequate Mental/Hyoid Distance: Adequate Mallampati Class: Class III Intubation Access Assessment: Possibly Difficult - Pulmonary Exam CTA: Yes - Cardiac Exam Cardiac Exam: RRR - Pre-Operative Health Status ASA Pre-Surgery Classification: ASA3 Proposed Anesthetic Plan: General - Pulmonary Hx Smoking: No Hx Respiratory Symptoms: No Hx Sleep Apnea: Yes (no CPAP) - Cardiovascular System Hx Hypertension: No Hx Heart Attack/AMI: No Hx Percutaneous Transluminal Coronary Angioplasty (PTCA): No - Central Nervous System CVA: No Hx Psychiatric Problems: No - Gastrointestinal Hx Gastroesophageal Reflux Disease: No - Endocrine Hx Renal Disease: No Hx Liver Disease: No Hx Non-Insulin Dependent Diabetes: Yes Hx Thyroid Disease: No - Other Systems Hx Alcohol Use: Yes (OCCA) Hx Substance Use: No Hx Cancer: No Hx Obesity: No - Additional Comments Anesthesia Medical History Comments: No prior GA or FHx anesthetic complications. Reports hx CHF 4 yrs ago related to "stress" which has resolved. No longer follows with nurse informaticist but at last visit reports heart function was "very good." Functional capacity >4mets. No evidence of acute decompensation.
--- NOTE | 2018-08-17 08:29 | Anesthesia Day of Surgery ---
Anesthesia Day of Surgery - Day of Surgery Patient Examined: Yes Patient H&P Reviewed: Yes Patient is NPO: Yes
[2018-08-17] MEDS ORDERED: DILAUDID ONE (08:40)
[2018-08-17] MEDS ORDERED: BLOXIVERZ ONE (08:57)
[2018-08-17] MEDS ORDERED: XYLOCAINE 1% 20 mL INFILTRATI ONE (09:06)
[2018-08-17] MEDS ORDERED: NACL 0.9% IR ONE (09:07)
[2018-08-17] MEDS ORDERED: NACL 0.9% 1000 ML 1,000 ML ONE (10:03)
--- NOTE | 2018-08-17 10:51 | Short Stay Summary ---
Short Stay Documentation Date of service: 08/17/18 - History Principal diagnosis: left inguinal hernia H&P: obtained from office - Allergies and Medications Current Medications: Allergies No Known Allergies Allergy (Verified 08/16/18 14:54) Home Medications Medication Instructions Recorded Confirmed Last Taken Type metFORMIN [Glucophage] 500 mg PO QDAY 08/16/18 08/17/18 08/16/18 09:00 History Active Medications Cefazolin Sodium (Ancef/Sterile Water 2 Gm/20 Ml) 2 gm IV PREOP NR Stop: 08/17/18 13:00 Celecoxib (Celebrex) 200 mg PO PREOP NR Stop: 08/17/18 16:00 Last Admin: 08/17/18 06:45 Dose: 200 mg Documented by: Gabapentin (Neurontin) 300 mg PO PREOP NR Stop: 08/17/18 16:00 Last Admin: 08/17/18 06:45 Dose: 300 mg Documented by: Hydromorphone HCl (Dilaudid) 0.5 mg IV Q10MIN PRN PRN Reason: Pain , Severe (7-10) Stop: 08/17/18 20:00 Lactated Ringer's (Lactated Ringers) 1,000 mls @ 100 mls/hr IV DIRECT YENY Last Admin: 08/17/18 06:50 Dose: 100 mls/hr Documented by: Midazolam HCl (Versed) 2 mg IV PREOP NR Stop: 08/17/18 16:00 Last Admin: 08/17/18 07:30 Dose: 2 mg Documented by: - Brief post op/procedure progress note Date of procedure: 08/17/18 Pre-op diagnosis: left inguinal hernia Post-op diagnosis: same Procedure: robotic assisted left inguinal hernia with mesh Anesthesia: GETA, local Findings: indirect hernia with chronically scarred sac Surgeon: ADRIAN LARSON Estimated blood loss: minimal Pathology: none Condition: stable - Hospital course Hospital course: Pt observed in PACU and discharged to home in stable condition - Disposition Condition at discharge: Good Disposition: DC-01 TO HOME OR SELFCARE Short Stay Discharge Plan Activity: other (no heavy lifting more than 15 lbs for the next 4-5 weeks) Diet: regular Wound: open to air Additional Instructions: SEE PRINTED DISCHARGE INSTRUCTIONS Follow up with: PRIMARY CARE,MD [Primary Care Provider] - 7 Days ADRIAN LARSON DO [Staff Physician] - 14 Days Prescriptions: Ibuprofen 800 mg PO Q8HR #30 tablet HYDROcodone/ACETAMINOPHEN [[place] 5-325 Tablet] 1 each PO Q6H PRN #20 tablet PRN Reason: Pain , Severe (7-10)
[2018-08-17 11:43] VITALS: BP 122/59
--- NOTE | 2018-08-17 13:23 | Post Anesthesia Evaluation ---
- Post Anesthesia Evaluation Patient Participated: Yes Airway Patent: Yes Stable Respiratory Function: Yes Nausea/Vomiting: No Temp > 96.8F: Yes Pain Manageable: Yes Adequeate Hydration: Yes Anesthesia Complications: No
--- NOTE | 2018-08-17 18:02 | Operative Report ---
PREOPERATIVE DIAGNOSIS: Left inguinal hernia. POSTOPERATIVE DIAGNOSIS: Left inguinal hernia. PROCEDURE: Robotic-assisted left inguinal hernia repair with mesh. ANESTHESIA: General endotracheal anesthesia, local. FINDINGS: Indirect hernia with chronically scarred sac. SURGEON: Danna Lovett DO ANODE ADJUSTER: Kristina Gold. ESTIMATED BLOOD LOSS: Minimal. PATHOLOGY: None. CONDITION AND DISPOSITION: Stable to PACU. HISTORY OF PRESENT ILLNESS AND INDICATIONS: The patient is a 53-year-old male, who was referred to the surgery office with complaints of left groin pain. He was found to have a left inguinal hernia and surgery was recommended for repair. All risks, benefits, alternatives to surgery were discussed with the patient. The robotic, laparoscopic and open approaches were all discussed. Questions were answered and consent obtained. PROCEDURE IN DETAIL: The patient was identified in the prep area, and taken back to the operating room and placed on the operating table in supine position. After anesthesia was induced, a De León catheter was sterilely placed by the circulating nurse. Bilateral arms were tucked and all bony prominences padded appropriately. The abdomen was then prepped and draped in the usual sterile fashion. A time-out performed. Local anesthetic was infiltrated into all skin incision sites. A 12 mm incision was made above the umbilicus through which a Veress needle was inserted. The Veress needle positioning was confirmed using the saline drop test. Abdomen was insufflated to 15 mmHg. Once the abdomen was insufflated, the Veress needle was removed and a 12 mm Optiview balloon trocar was placed through this incision. The abdomen was inspected and there was no underlying injury to any of the abdominal contents. The patient was placed in Trendelenburg position. The pelvis was inspected. There was an obvious left-sided indirect hernia. There was no hernia on the right side. Two additional 8 mm robotic trocars were placed, 1 in the right upper quadrant and one in the left upper quadrant under direct visualization. The robot was then docked with a monopolar scissors in arm #1 and a fenestrated bipolar in arm #2. A large 3DMax left-sided mesh as well as suture material was placed into the abdomen via the 12 mm port. The surgeon was then moved to the console. The preperitoneal flap was then created approximately 7 cm away from the inguinal canal and extended towards the ASIS from the median umbilical ligament. The preperitoneal plane was then created using a combination of blunt dissection and monopolar cautery. The lateral space was first dissected and then the medial space. The pubic tubercle and Campbell's ligament were identified and cleared of any overlying fatty tissue. Great care was taken to maintain hemostasis at all times. The hernia sac was then grasped and retracted and the cremasteric muscles bluntly dissected in order to reduce the sac. The sac was chronically scarred to the surrounding tissue. With slow meticulous dissection, the sac was completely reduced and the vas deferens and gonadal vessels were clearly identified and intact. Once the peritoneal dissection was deemed adequate to facilitate mesh placement, the wound bed was examined and no active bleeding identified. There was good hemostasis. The large 3DMax mesh was then placed into the pocket and positioned in the usual fashion. The medial portion was sutured to the pubic tubercle using an 0 Vicryl interrupted stitch and laterally to the anterior abdominal wall. The flap was then closed without tension in order to facilitate coverage of the mesh completely. This was done using a 3-0 V-Loc suture. Prior to complete closure of the flap, a 16-[place] Angiocath was inserted into the pocket from the outside by the medicine assistant in order to facilitate evacuation of pneumoperitoneum. The flap was then completely closed and any defects in the peritoneum were closed using interrupted 2-0 Vicryl sutures. Once the peritoneal defects were closed, the flap was evacuated of any pneumoperitoneum from the preperitoneal space. All suture material and needles were then removed under direct visualization. The robot was undocked and the surgeon scrubbed back in. A 12 mm port was removed and the fascia closed with an 0 Vicryl interrupted stitch using Surinder-Leah device. The robotic ports were then removed and the abdomen slowly desufflated. The skin incisions once again infiltrated with local anesthetic and the skin closed with 4-0 Monocryl subcuticular stitches and skin glue. At the end of the case, all sponge, instrument, sharp counts were correct x 2. The De León catheter was removed and the patient was awoken from anesthesia and taken to PACU in stable condition. JOB# [id number] NK/NTS
== END 2018-08-17 05:46 | disposition home or self-care (01) ==
LOC: OR 05:45
PROVIDERS: ATTEND Surgery
DX: K40.90 Unilateral inguinal hernia, without obstruction or gangrene, not specified as recurrent (principal); I50.9 Heart failure, unspecified; G47.30 Sleep apnea, unspecified; M19.90 Unspecified osteoarthritis, unspecified site; E11.9 Type 2 diabetes mellitus without complications; Z72.89 Other problems related to lifestyle; Z98.890 Other specified postprocedural states; Z79.899 Other long term (current) drug therapy; Z79.84 Long term (current) use of oral hypoglycemic drugs
CPT/HCPCS: 49650; 82962; C1781; J0690; J1170; J2250; J2704; J2710; J3010; J7030; J7120

== ENCOUNTER 2018-09-07 06:47 | Outpatient (CLI) | payer BC ==
--- NOTE | 2018-09-07 18:18 | Magnetic Resonance Report ---
PROCEDURE: MR UE JOINT LT WO CON HISTORY: M25.512 PAIN IN LEFT SHOULDER/M75.42 IMPINGEMENT SYNDROME OF LEFT FINDINGS: MRI of the left shoulder was performed using axial T2*gradient echo, sagittal fat saturated proton density, coronal fat saturated T2, coronal T1 and coronal fat saturated proton density images . These images demonstrate a full-thickness tear of the supraspinatus tendon insertion, coronal images 12 and 13, sagittal image 14, approximately 2 cm transverse and 1.8 cm AP involving the anterior and superior fibers of the supraspinatus. A small portion of the posterior aspect of supraspinous tendon continues to insert. There is degeneration of the superior insertional fibers of the subscapularis without discrete subsca pularis tear. The infraspinatus and teres minor muscles and tendons appear intact. There is mild glenohumeral articular cartilage loss consistent with osteoarthritis. There is a subcho ndral degenerative cyst in the bony glenoid. The glenoid labrum appears intact. There is a glenohumeral joint effusion, with fluid extending into the subacromial subdeltoid bursa du e to the rotator cuff tear. There is a curved type II acromion. There is lateral acromial downsloping which contributes is Dopple r impingement. The biceps tendon appears intact. IMPRESSION: Full-thickness tear of anterior and superior fibers of supraspinatus tendon This document is electronically signed by Morris Marie MD., Sep 07 2018 06:16:21 PM ET
== END 2018-09-07 06:48 | disposition home or self-care (01) ==
LOC: MRI 06:47
PROVIDERS: ATTEND Orthopaedic Surgery
DX: M75.122 Complete rotator cuff tear or rupture of left shoulder, not specified as traumatic (principal); M75.42 Impingement syndrome of left shoulder; E11.9 Type 2 diabetes mellitus without complications

== ENCOUNTER 2018-09-13 | Emergency (ER) | payer BC ==
[2018-09-13] MEDS ORDERED: ASPIRIN PO ONE (00:15)
[2018-09-13 00:41] LABS: Basophils % (Auto) 0.5 % (0.0-1.8); Eosinophils # (Auto) 0.2 K/mm3 (0.0-0.4); Eosinophils % (Auto) 2.1 % (0.0-4.3); Hematocrit 44.5 % (35.5-45.6); Hemoglobin 15.7 gm/dl (11.8-15.2); Lymphocytes # (Auto) 2.3 K/mm3 (1.2-5.4); Lymphocytes % (Auto) 28.6 % (13.4-35.0); Mean Corpuscular HGB Conc 35 % (32-34); Mean Corpuscular Volume 93 fl (84-94); Monocytes # (Auto) 0.5 K/mm3 (0.0-0.8); Monocytes % (Auto) 6.7 % (0.0-7.3); Platelet Count 154 K/mm3 (140-440); Red Cell Distribution Width 14.1 % (13.2-15.2)
[2018-09-13 00:58] LABS: BUN/Creatinine Ratio 12; Blood Urea Nitrogen 11 mg/dL (9-20); Calcium 9.3 mg/dL (8.4-10.2); Hemolysis Index 37
--- NOTE | 2018-09-13 02:11 | XRay Report ---
PROCEDURE: XR CHEST ROUTINE 2V TECHNIQUE: PA and lateral chest radiographs were obtained. HISTORY: Chest Pain COMPARISONS: Prior radiographs July 18, 2018. FINDINGS: Heart: Normal. Mediastinum/Vessels: Normal. Lungs/Pleural space: Normal. Bony thorax: No acute osseous abnormality. IMPRESSION: No acute cardiopulmonary disease. This document is electronically signed by Jurgen Jefferson DO., Sep 13 2018 02:09:27 AM ET
[2018-09-13] MEDS ORDERED: DILAUDID IV ONE ×2 (02:51→04:20)
[2018-09-13] MEDS ORDERED: ZOFRAN IV ONE (02:51)
[2018-09-13] MEDS ORDERED: NACL 0.9% 500 ML 500 ML IV ONE (02:52)
--- NOTE | 2018-09-13 04:06 | Cat Scan Report ---
PROCEDURE: CT HEAD/BRAIN WO CON TECHNIQUE: Computerized tomography of the head was performed without contrast material. CT DOSE LENGTH PRODUCT: mGycm HISTORY: near syncope COMPARISONS: None . FINDINGS: Skull and scalp: Normal . Paranasal sinuses: Normal . Ventricles and subarachnoid spaces: Normal . Cerebrum: No evidence of hemorrhage, acute infarction or mass . Cerebellum and brainstem: No evidence of hemorrhage, acute infarction or mass . There is mild volume loss in the posterior fossa. Vasculature: Normal . Other: None . ASPECTS: 10 IMPRESSION: Mild volume loss in the posterior fossa. No acute stroke or hemorrhage. . This document is electronically signed by John Keller MD., Sep 13 2018 04:03:40 AM ET
--- NOTE | 2018-09-13 04:09 | Cat Scan Report ---
PROCEDURE: CT ANGIO CHEST TECHNIQUE: Computerized tomographic angiography of the chest was performed after the IV injection of iodinated nonionic contrast including image processing. The image data was postprocessed using 2-di mensional multiplanar reformatted (MPR) and 3-dimensional (MIP and/or volume rendered) techniques. Au tomated exposure control, adjustment of mA and/or kV according to patient size, or iterative reconstr uction dose optimization techniques were utilized. CT DOSE LENGTH PRODUCT: mGycm HISTORY: cp, sob, syncope COMPARISONS: None . FINDINGS: Heart and pericardium: Normal. Thoracic aorta: Normal. Pulmonary vasculature: Normal. Lymph nodes: No enlarged thoracic lymph nodes. Lungs: Normal. Pleural space: No effusion, thickening, or pneumothorax. Musculoskeletal structures: No significant abnormality. Upper abdominal structures: No significant abnormality. IMPRESSION: No evidence of pulmonary embolus, aortic dissection, or vascular congestion. No acute process in the chest.. This document is electronically signed by John Keller MD., Sep 13 2018 04:07:49 AM ET
--- NOTE | 2018-09-13 04:20 | Emergency Department Report ---
ED Dizziness HPI - General Chief Complaint: Dizziness Stated Complaint: FALL/L ARM/BODY PAIN Time Seen by Provider: 09/13/18 02:40 Source: patient Mode of arrival: Ambulatory Limitations: No Limitations - History of Present Illness Initial Comments: 53-year-old male with a past medical history of arthritis, CHF, diabetes [id number] diabetes, chronic left shoulder pain, and recent abdominal hernia repair August 14 presents to the Hospital complaining of a dizzy spell causing him to almost fall earlier today. Patient felt lightheaded but did not fall. Patient has chronic severe ongoing left shoulder pain and has had a MRI here September 07 but he does not know the results. He is being seen by Dr. Barnes.. For the last several days pain seems to have very radiating to left upper and mid chest. Pain is currently rated 8/10 in intensity, described as sharp, increasing movement, palpation, and deep inspiration. No shortness of breath reported. Patient developed a frontal headache this evening. No complaints of nausea, vomiting, diaphoresis, focal weakness, focal numbness, recent travel, history of PEs and DVT, calf tenderness, or leg edema. He is not currently taking any pain medication. Patient denies any injury to his left shoulder today. - Related Data Home Medications Medication Instructions Recorded Confirmed Last Taken metFORMIN [Glucophage] 500 mg PO QDAY 08/16/18 08/17/18 08/16/18 09:00 Previous Rx's Medication Instructions Recorded Last Taken Type HYDROcodone/ACETAMINOPHEN [[place] 1 each PO Q6H PRN #20 tablet 09/13/18 Unknown Rx 5-325 Tablet] Ibuprofen 800 mg PO Q8HR #30 tablet 09/13/18 Unknown Rx Allergies Allergy/AdvReac Type Severity Reaction Status Date / Time No Known Allergies Allergy Verified 08/16/18 14:54 ED Review of Systems ROS: Stated complaint: FALL/L ARM/BODY PAIN Other details as noted in HPI Comment: All other systems reviewed and negative ED Past Medical Hx - Past Medical History Previous Medical History?: Yes Hx Hypertension: No Hx Heart Attack/AMI: No Hx Congestive Heart Failure: Yes (DUE TO SEVERE STRESS PER PT) Hx Diabetes: Yes (RECENTLY DX 3-4 MOS; [facility]) Hx Liver Disease: No Hx Renal Disease: No Hx Arthritis: Yes Hx HIV: (NEVER BEEN TESTED) - Surgical History Past Surgical History?: Yes Additional Surgical History: Hernia repair 08/14/18 - Social History Smoking Status: Current Some Day Smoker Substance Use Type: Alcohol - Medications Home Medications: Home Medications Medication Instructions Recorded Confirmed Last Taken Type metFORMIN [Glucophage] 500 mg PO QDAY 08/16/18 08/17/18 08/16/18 09:00 History HYDROcodone/ACETAMINOPHEN [[place] 1 each PO Q6H PRN #20 tablet 09/13/18 Unknown Rx 5-325 Tablet] Ibuprofen 800 mg PO Q8HR #30 tablet 09/13/18 Unknown Rx ED Physical Exam - General Limitations: No Limitations - Other Other exam information: General: No limitations, patient is alert in no acute distress Head exam: Atraumatic, normocephalic Eyes exam: Normal appearance, pupils equal reactive to light, extraocular movements intact ENT: Moist mucous membrane, normal oropharynx Neck exam: Normal inspection, full range of motion, no meningismus nontender Respiratory exam: Clear to auscultation bilateral, no wheezes, rales, crackles Cardiovascular: Normal rate and rhythm, normal heart sounds, anterior sternal tenderness to palpation. Also tenderness to the left upper chest wall. Abdomen: Soft, nondistended, and nontender, with normal bowel sounds, no rebound, or guarding Extremity: Significant left shoulder tenderness to palpation with pain in movement and limited movement in all directions. Back: Normal Inspection, full range of motion, no tenderness Neurologic: Alert, oriented x3, cranial nerves intact, no motor or sensory deficit Psychiatric: normal affect, normal mood Skin: Warm, dry, intact ED Course Vital Signs 09/13/18 09/13/18 09/13/18 00:09 01:46 02:00 Temperature 97.7 F Pulse Rate 97 H 83 78 Respiratory 18 18 11 L Rate Blood Pressure 109/63 130/65 118/55 O2 Sat by Pulse 97 95 95 Oximetry 09/13/18 09/13/18 09/13/18 02:15 02:30 02:45 Temperature Pulse Rate 79 84 80 Respiratory 17 16 11 L Rate Blood Pressure 124/64 124/64 107/58 O2 Sat by Pulse 97 97 95 Oximetry 09/13/18 09/13/18 09/13/18 03:01 03:15 04:05 Temperature Pulse Rate 79 73 77 Respiratory 13 13 14 Rate Blood Pressure 107/58 107/58 108/62 O2 Sat by Pulse 95 95 94 Oximetry 09/13/18 09/13/18 04:15 04:30 Temperature Pulse Rate 76 70 Respiratory 14 10 L Rate Blood Pressure 108/62 116/57 O2 Sat by Pulse 95 96 Oximetry ED Medical Decision Making - Lab Data Result diagrams: 09/13/18 00:24 09/13/18 00:24 Lab Results 09/13/18 09/13/18 09/13/18 Range/Units 00:24 00:24 02:57 WBC 8.1 (4.5-11.0) K/mm3 RBC 4.80 (3.65-5.03) M/mm3 Hgb 15.7 H (11.8-15.2) gm/dl Hct 44.5 (35.5-45.6) % MCV 93 (84-94) fl MCH 33 H (28-32) pg MCHC 35 H (32-34) % RDW 14.1 (13.2-15.2) % Plt Count 154 (140-440) K/mm3 Lymph % (Auto) 28.6 (13.4-35.0) % [place] % (Auto) 6.7 (0.0-7.3) % Eos % (Auto) 2.1 (0.0-4.3) % Baso % (Auto) 0.5 (0.0-1.8) % Lymph # 2.3 (1.2-5.4) K/mm3 [place] # 0.5 (0.0-0.8) K/mm3 Eos # 0.2 (0.0-0.4) K/mm3 Baso # 0.0 (0.0-0.1) K/mm3 Seg Neutrophils % 62.1 (40.0-70.0) % Seg Neutrophils # 5.0 (1.8-7.7) K/mm3 Sodium 139 (137-145) mmol/L Potassium 4.2 (3.6-5.0) mmol/L Chloride 98.9 (98-107) mmol/L Carbon Dioxide 23 (22-30) mmol/L Anion Gap 21 mmol/L BUN 11 (9-20) mg/dL Creatinine 0.9 (0.8-1.5) mg/dL Estimated GFR > 60 ml/min BUN/Creatinine Ratio 12 % Glucose 330 H (75-100) mg/dL Calcium 9.3 (8.4-10.2) mg/dL Troponin T < 0.010 < 0.010 (0.00-0.029) ng/mL - EKG Data -: EKG Interpreted by Me EKG shows normal: sinus rhythm, axis (qrs 81), QRS complexes (qrsd 89), ST-T waves (no stemi) Rate: normal (78) - Radiology Data Radiology results: report reviewed PROCEDURE: XR CHEST ROUTINE 2V TECHNIQUE: PA and lateral chest radiographs were obtained. HISTORY: Chest Pain COMPARISONS: Prior radiographs July 18, 2018. FINDINGS: Heart: Normal. Mediastinum/Vessels: Normal. Lungs/Pleural space: Normal. Bony thorax: No acute osseous abnormality. IMPRESSION: No acute cardiopulmonary disease. PROCEDURE: CT ANGIO CHEST TECHNIQUE: Computerized tomographic angiography of the chest was performed after the IV injection of iodinated nonionic contrast including image processing. The image data was postprocessed using 2-dimensional multiplanar reformatted (MPR) and 3-dimensional (MIP and/or volume rendered) techniques. Automated exposure control, adjustment of mA and/or kV according to patient size, or iterative reconstruction dose optimization techniques were utilized. CT DOSE LENGTH PRODUCT: mGycm HISTORY: cp, sob, syncope COMPARISONS: None . FINDINGS: Heart and pericardium: Normal. Thoracic aorta: Normal. Pulmonary vasculature: Normal. Lymph nodes: No enlarged thoracic lymph nodes. Lungs: Normal. Pleural space: No effusion, thickening, or pneumothorax. Musculoskeletal structures: No significant abnormality. Upper abdominal structures: No significant abnormality. IMPRESSION: No evidence of pulmonary embolus, aortic dissection, or vascular congestion. No acute process in the chest.. PROCEDURE: CT HEAD/BRAIN WO CON TECHNIQUE: Computerized tomography of the head was performed without contrast material. CT DOSE LENGTH PRODUCT: mGycm HISTORY: near syncope COMPARISONS: None . FINDINGS: Skull and scalp: Normal . Paranasal sinuses: Normal . Ventricles and subarachnoid spaces: Normal . Cerebrum: No evidence of hemorrhage, acute infarction or mass . Cerebellum and brainstem: No evidence of hemorrhage, acute infarction or mass . There is mild volume loss in the posterior fossa. Vasculature: Normal . Other: None . ASPECTS: 10 IMPRESSION: Mild volume loss in the posterior fossa. No acute stroke or hemorrhage. . - Medical Decision Making Patient had a lightheaded episode with unremarkable labs. Patient treated with 500 of normal saline and pain medication for ongoing left shoulder pain. The workup including labs, EKG, CT head, CT angiogram chest, and chest x-ray are all unremarkable. Outpatient follow-up will be encouraged. Patient's recent MRI shows a full-thickness tear of the anterior super fibers of the supraspinatus tendon. Patient is not currently have a sling and was placed in an immobilizer. Outpatient follow-up with Dr. Barnes will be encouraged. Pain medication will be prescribed. (copy of mri report provided) - Differential Diagnosis arrhythmia, dehydration, anemia, PE, intracranial hemorrhage, RI Critical Care Time: No Critical care attestation.: If time is entered above; I have spent that time in minutes in the direct care of this critically ill patient, excluding procedure time. ED Disposition Clinical Impression: Light-headedness, Tear of left supraspinatus tendon Disposition: TO HOME OR SELFCARE Is pt being admited?: No Does the pt Need Aspirin: No Condition: Stable Instructions: Lightheadedness (ED), Rotator Cuff Injury (ED) Additional Instructions: Take the medication as prescribed. Follow up with your doctor or the clinic/doctor provided. Return if symptoms worsen as indicated by your discharge instructions Prescriptions: Ibuprofen 800 mg PO Q8HR #30 tablet HYDROcodone/ACETAMINOPHEN [[place] 5-325 Tablet] 1 each PO Q6H PRN #20 tablet PRN Reason: Pain , Severe (7-10) Referrals: LIBRADO FOWLER MD [Primary Care Provider] - 3-5 Days GENESIS BARNES MD [Staff Physician] - 3-5 Days Time of Disposition: 05:10
[2018-09-13 04:33] VITALS: BP 116/57
== END 2018-09-13 05:37 | disposition home or self-care (01) ==
LOC: ED
DX: S46.912A Strain of unspecified muscle, fascia and tendon at shoulder and upper arm level, left arm, initial encounter (principal); R51 Headache; I50.9 Heart failure, unspecified; E11.9 Type 2 diabetes mellitus without complications; M19.90 Unspecified osteoarthritis, unspecified site; F17.200 Nicotine dependence, unspecified, uncomplicated; Z88.5 Allergy status to narcotic agent; X58.XXXA Exposure to other specified factors, initial encounter; Y93.89 Activity, other specified; Y92.89 Other specified places as the place of occurrence of the external cause; Y99.8 Other external cause status
CPT/HCPCS: 29105; 36415; 70450; 71046; 71275; 80048; 84484; 85025; 93005; 93010; 96361; 96374; 96375; 96376; 99284; J1170; J2405; J7040; Q9967

== ENCOUNTER 2018-09-14 08:55 | Day surgery (SDC) | payer BC ==
[~2018-09-14 08:55] MED LIST changes: +ANCEF/STERILE WATER 2 GM/20 ML IV NR
[2018-09-14] MEDS ORDERED: LACTATED RINGERS 1,000 ML ONE (11:05)
[2018-09-14] MEDS ORDERED: XYLOCAINE 1% 20 mL ONE (11:46)
[2018-09-14] MEDS ORDERED: MARCAINE-EPI 0.5%-1:200,000 INFILTRATI ONE (11:47)
[2018-09-14] MEDS ORDERED: VERSED ONE (11:47)
[2018-09-14] MEDS ORDERED: SUBLIMAZE ONE ×2 (11:48→13:35)
[2018-09-14] MEDS ORDERED: XYLOCAINE MPF 2% ONE (13:35)
[2018-09-14] MEDS ORDERED: ZEMURON IV ONE ×2 (13:35→17:36)
[2018-09-14] MEDS ORDERED: ZOFRAN ONE ×2 (13:35→17:36)
[2018-09-14] MEDS ORDERED: DECADRON ONE (13:35)
[2018-09-14] MEDS ORDERED: DIPRIVAN 10 MG/ML IV ONE (13:36)
[2018-09-14] MEDS ORDERED: DEPO-Medrol ONE (15:09)
[2018-09-14] MEDS ORDERED: ADRENALINE P/F ONE (15:10)
[2018-09-14] MEDS ORDERED: MARCAINE 0.25% INFILTRATI ONE ×2 (15:10→17:22)
[2018-09-14] MEDS ORDERED: DEPO-Medrol INTRA-ARTI ONE (16:06)
[2018-09-14] MEDS ORDERED: MARCAINE 0.5% INFILTRATI ONE (16:06)
[2018-09-14] MEDS ORDERED: ROBINUL ONE (17:36)
[2018-09-14] MEDS ORDERED: BLOXIVERZ ONE (17:36)
--- NOTE | 2018-09-14 17:37 | Anesthesia Consultation ---
Anesthesia Consult and Med Hx - Airway Anesthetic Teeth Evaluation: Good ROM Head & Neck: Adequate Mental/Hyoid Distance: Adequate Mallampati Class: Class II Intubation Access Assessment: Good - Pulmonary Exam CTA: Yes - Cardiac Exam Cardiac Exam: RRR - Pre-Operative Health Status ASA Pre-Surgery Classification: ASA3 Proposed Anesthetic Plan: General Nerve Block: IS - Pulmonary Hx Smoking: Yes Hx Respiratory Symptoms: No Hx Sleep Apnea: Yes (DX SLEEP APNEA, NO CPAP USE.) - Cardiovascular System Hx Hypertension: Yes Hx Heart Attack/AMI: No Hx Percutaneous Transluminal Coronary Angioplasty (PTCA): No - Central Nervous System CVA: No Hx Psychiatric Problems: No - Gastrointestinal Hx Gastroesophageal Reflux Disease: No - Endocrine Hx Renal Disease: No Hx Liver Disease: No Hx Non-Insulin Dependent Diabetes: Yes Hx Thyroid Disease: No - Other Systems Hx Cancer: No
--- NOTE | 2018-09-14 17:37 | Anesthesia Day of Surgery ---
Anesthesia Day of Surgery - Day of Surgery Patient Examined: Yes Patient H&P Reviewed: Yes Patient is NPO: Yes
--- NOTE | 2018-09-14 17:38 | Procedure Note ---
Date of procedure: 09/14/18 Pre-op diagnosis: rotator cuff tear left shoulder Post-op diagnosis: same Procedure: Arthroscopy left shoulder with subacromial decompression and release of biceps tendon Procedure The patient was brought to the OR after being given a pre op scalene nerve block for postop pain management in preoperative holding. He was placed supine on the operating room table next he was induced with MAC anesthesia. He was placed in the right lateral decubitus position the left upper extremity was prepped and draped in the usual sterile manner. A timeout procedure was done to identify the patient and the correct operative site. Routine arthroscopic portals were made following introduction of the arthroscope into the subacromial space and insufflation with saline solution examination revealed these findings patient was noted to have a tear at the rotator cuff interval with exposure of the biceps tendon in addition he was also noted to have significant subacromial impingement from the distal acromion and the cortical regular joints is also a moderate amount of synovial hypertrophy. Using a blunt probe the supraspinatus infraspinatus tendon was probed for tears there did not appear to be any significant tears and the structures The arthroscope was then repositioned into the glenohumeral joint along with inspection of the glenoid and labral structures the patient was noted to have a significant SLAP tear with significant fraying of the anterior labrum and fraying of the biceps tendon therefore decision was made to release the biceps tendon at its attachment on to the glenoid this was done using switches stick and cannula anteriorly a tissue ablator was then introduced into the shoulder joint and the biceps tendon was released next the arthroscope was then placed into the subacromial bursa and the was debrided using a 5.0 acromionizer or aston. Following subacromial decompression the shoulder was then inspected again and was taken through range of motion there did not appear to be any residual impingement noted The arthroscope and was removed via stab wound were repaired a Marcaine Depo-Medrol mixture was injected into the subacromial bursa. Routine postop conditions were applied the patient tolerated the procedure abdominal complications Anesthesia: darryl JJ Surgeon: GENESIS BARNES [employer] Architect: BETTYE GORDON Estimated blood loss: 50-100ml Pathology: none Condition: stable Disposition: PACU
[2018-09-14] MEDS ORDERED: SUBLIMAZE IV PRN (17:47)
[2018-09-14] MEDS ORDERED: ZOFRAN IV PRN (17:47)
--- NOTE | 2018-09-14 18:57 | Post Anesthesia Evaluation ---
- Post Anesthesia Evaluation Patient Participated: Yes Airway Patent: Yes Stable Respiratory Function: Yes Nausea/Vomiting: No Temp > 96.8F: Yes Pain Manageable: Yes Adequeate Hydration: Yes Anesthesia Complications: No Block Receding Appropriately: Yes Patient on Ventilator: No
[2018-09-14 20:02] VITALS: BP 123/63
== END 2018-09-14 19:15 | disposition home or self-care (01) ==
LOC: OR 08:55
PROVIDERS: ATTEND Orthopaedic Surgery
DX: M75.102 Unspecified rotator cuff tear or rupture of left shoulder, not specified as traumatic (principal); I11.0 Hypertensive heart disease with heart failure; I50.9 Heart failure, unspecified; E11.9 Type 2 diabetes mellitus without complications; G47.30 Sleep apnea, unspecified; F17.210 Nicotine dependence, cigarettes, uncomplicated; M19.90 Unspecified osteoarthritis, unspecified site; Z79.899 Other long term (current) drug therapy; Z79.84 Long term (current) use of oral hypoglycemic drugs; Z88.5 Allergy status to narcotic agent; Z98.890 Other specified postprocedural states; Z86.2 Personal history of diseases of the blood and blood-forming organs and certain disorders involving the immune mechanism
CPT/HCPCS: 29823; 29826; 64450; 82962; J0171; J0690; J1030; J1100; J2250; J2405; J2704; J2710; J3010; J7120

== ENCOUNTER 2018-10-09 00:10 | Inpatient (IN) | payer BC ==
[2018-10-09 00:50] LABS: Bilirubin,Urine NEG (Negative); Blood,Urine NEG (Negative); Color,Urine Colorless (Yellow); Protein,Urine <15 mg/dL mg/dL (Negative); Urobilinogen,Urine < 2.0 mg/dL (<2.0); WBC,Urine < 1.0 /HPF (0.0-6.0)
[2018-10-09 01:08] LABS: Basophils # (Auto) 0.1 K/mm3 (0.0-0.1); Basophils % (Auto) 0.7 % (0.0-1.8); Eosinophils # (Auto) 0.1 K/mm3 (0.0-0.4); Eosinophils % (Auto) 1.5 % (0.0-4.3); Hematocrit 48.9 % (35.5-45.6); Hemoglobin 16.9 gm/dl (11.8-15.2); Lymphocytes # (Auto) 2.2 K/mm3 (1.2-5.4); Lymphocytes % (Auto) 27.8 % (13.4-35.0); Mean Corpuscular HGB Conc 35 % (32-34); Mean Corpuscular Volume 94 fl (84-94); Monocytes # (Auto) 0.5 K/mm3 (0.0-0.8); Monocytes % (Auto) 6.6 % (0.0-7.3); Platelet Count 164 K/mm3 (140-440); Red Blood Count 5.21 M/mm3 (3.65-5.03); Red Cell Distribution Width 13.8 % (13.2-15.2)
[2018-10-09] MEDS ORDERED: NACL 0.9% 1000 ML 1,000 ML IV ONE (01:09)
[2018-10-09] MEDS ORDERED: NACL 0.9% 1000 ML 1,000 ML ONE (01:21)
[2018-10-09 01:23] LABS: Alanine Aminotransferase 28 units/L (7-56); Albumin 4.1 g/dL (3.9-5); BUN/Creatinine Ratio 10; Blood Urea Nitrogen 12 mg/dL (9-20); Calcium 9.9 mg/dL (8.4-10.2); Hemolysis Index 29
--- NOTE | 2018-10-09 01:39 | Emergency Department Report ---
HPI - General Chief Complaint: Hyperglycemia Time Seen by Provider: 10/09/18 01:29 - HPI HPI: Room 20 The patient is a 53-year-old male presenting with a chief complaint of hyperglycemia. The patient states she's been thirsty all day the patient states initially his glucose was in the 200s earlier today then it shot up to greater than 600. Patient states he felt dizzy had blurred vision and passed out. Patient states he still feels like he has intermittent blurred vision and complains of polyuria. Patient states she's been compliant with his diabetes medication. Patient denies history of fever. Location: [See above] Duration: [See above] Quality: [See above] Severity: [See above] Modifying factors: [see above] Context: [see above] Mode of transportation: [not driving] ED Past Medical Hx - Past Medical History Previous Medical History?: Yes Hx Hypertension: Yes Hx Congestive Heart Failure: Yes Hx Diabetes: Yes Hx Arthritis: Yes - Surgical History Past Surgical History?: Yes Additional Surgical History: Hernia repair , Left rotator Cuff - Family History Family history: no significant - Social History Smoking Status: Current Some Day Smoker Substance Use Type: None (denies illicit drug use), Alcohol (occasional) - Medications Home Medications: Home Medications Medication Instructions Recorded Confirmed Last Taken Type Oxycodone HCl/Acetaminophen 1 tab PO Q6HR PRN 10/09/18 10/09/18 Unknown History [Percocet 7.5/325 mg] traZODone [Desyrel] 100 mg PO QHS 10/09/18 10/09/18 Unknown History ED Review of Systems ROS: Stated complaint: BLURRY VISION/HIGH BLOOD GLUCOSE Other details as noted in HPI Constitutional: no symptoms reported Eyes: vision change ENT: denies: throat pain Respiratory: no symptoms reported Cardiovascular: denies: chest pain Endocrine: increased thirst, increased urine Gastrointestinal: denies: abdominal pain Genitourinary: denies: dysuria Musculoskeletal: denies: back pain Neurological: other (syncope) Physical Exam - Physical Exam Vital Signs: Vital Signs 10/09/18 10/09/18 00:25 01:10 Temperature 98.9 F 98.6 F Pulse Rate 104 H 85 Respiratory 20 18 Rate Blood Pressure 118/73 Blood Pressure 126/81 [Right] O2 Sat by Pulse 96 100 Oximetry Physical Exam: GENERAL: The patient is well-developed well-nourished male lying on stretcher not appearing to be in acute. [] HEENT: Normocephalic. Atraumatic. Extraocular motions are intact. Patient has moist mucous membranes. NECK: Supple. No meningitic signs are noted. Trachea midline CHEST/LUNGS: Clear to auscultation. There is no respiratory distress noted. HEART/CARDIOVASCULAR: Regular. There is no tachycardia. There is no gallop rub or murmur. ABDOMEN: Abdomen is soft, nontender. Patient has normal bowel sounds. There is no abdominal distention. SKIN: There is no rash. There is no edema. There is no diaphoresis. NEURO: The patient is awake, alert, and oriented. The patient is cooperative. The patient has no focal neurologic deficits. The patient has normal speech. Cranial nerves II through XII grossly intact, no drift MUSCULOSKELETAL: Limited range of motion of left shoulder secondary to recent surgery. There is no evidence of acute injury. ED Course Vital Signs 10/09/18 10/09/18 00:25 01:10 Temperature 98.9 F 98.6 F Pulse Rate 104 H 85 Respiratory 20 18 Rate Blood Pressure 118/73 Blood Pressure 126/81 [Right] O2 Sat by Pulse 96 100 Oximetry ED Medical Decision Making - Lab Data Result diagrams: 10/09/18 00:50 10/09/18 00:50 Laboratory Tests 10/09/18 10/09/18 10/09/18 00:25 00:26 00:50 WBC 8.1 RBC 5.21 H Hgb 16.9 H Hct 48.9 H MCV 94 MCH 33 H MCHC 35 H RDW 13.8 Plt Count 164 Lymph % (Auto) 27.8 [place] % (Auto) 6.6 Eos % (Auto) 1.5 Baso % (Auto) 0.7 Lymph # 2.2 [place] # 0.5 Eos # 0.1 Baso # 0.1 Seg Neutrophils % 63.4 Seg Neutrophils # 5.1 VBG pH Sodium Potassium Chloride Carbon Dioxide Anion Gap BUN Creatinine Estimated GFR BUN/Creatinine Ratio Glucose POC Glucose > 500 H Calcium Total Bilirubin AST ALT Alkaline Phosphatase Troponin T Total Protein Albumin Albumin/Globulin Ratio Urine Color Colorless Urine Turbidity Clear Urine pH 8.0 H Ur Specific [place] 1.027 Urine Protein <15 mg/dl Urine Glucose (UA) >=500 Urine Ketones Neg Urine Blood Neg Urine Nitrite Neg Urine Bilirubin Neg Urine Urobilinogen < 2.0 Ur Leukocyte Esterase Neg Urine WBC (Auto) < 1.0 Urine RBC (Auto) 1.0 10/09/18 10/09/18 10/09/18 00:50 00:50 01:11 WBC RBC Hgb Hct MCV MCH MCHC RDW Plt Count Lymph % (Auto) [place] % (Auto) Eos % (Auto) Baso % (Auto) Lymph # [place] # Eos # Baso # Seg Neutrophils % Seg Neutrophils # VBG pH Sodium 130 L Potassium 4.7 Chloride 89.1 L Carbon Dioxide 29 Anion Gap 17 BUN 12 Creatinine 1.2 Estimated GFR > 60 BUN/Creatinine Ratio 10 Glucose 683 H* POC Glucose > 500 H Calcium 9.9 Total Bilirubin 0.30 AST 22 ALT 28 Alkaline Phosphatase 145 H Troponin T < 0.010 Total Protein 7.4 Albumin 4.1 Albumin/Globulin Ratio 1.2 Urine Color Urine Turbidity Urine pH Ur Specific [place] Urine Protein Urine Glucose (UA) Urine Ketones Urine Blood Urine Nitrite Urine Bilirubin Urine Urobilinogen Ur Leukocyte Esterase Urine WBC (Auto) Urine RBC (Auto) 10/09/18 01:35 WBC RBC Hgb Hct MCV MCH MCHC RDW Plt Count Lymph % (Auto) [place] % (Auto) Eos % (Auto) Baso % (Auto) Lymph # [place] # Eos # Baso # Seg Neutrophils % Seg Neutrophils # VBG pH 7.340 Sodium Potassium Chloride Carbon Dioxide Anion Gap BUN Creatinine Estimated GFR BUN/Creatinine Ratio Glucose POC Glucose Calcium Total Bilirubin AST ALT Alkaline Phosphatase Troponin T Total Protein Albumin Albumin/Globulin Ratio Urine Color Urine Turbidity Urine pH Ur Specific [place] Urine Protein Urine Glucose (UA) Urine Ketones Urine Blood Urine Nitrite Urine Bilirubin Urine Urobilinogen Ur Leukocyte Esterase Urine WBC (Auto) Urine RBC (Auto) - EKG Data -: EKG Interpreted by Me EKG shows normal: sinus rhythm Rate: normal - EKG Data When compared to previous EKG there are: previous EKG unavailable Interpretation: nonspecific ST-T wave cee (T-wave inversion in lead aVL, V2) - Radiology Data Radiology results: report reviewed (CT head), image reviewed (CT head) [place] [id number] Cat Scan Report Signed Patient: CARYN RASHEED MR#: [id number] : 1965 Acct:[id number] Age/Sex: 53 / M ADM Date: 10/09/18 Loc: ED Attending Dr: Ordering Physician: REBECCA SCOTT MD Date of Service: 10/09/18 Procedure(s): CT head/brain wo con Accession Number(s): [id number] cc: REBECCA SCOTT MD PROCEDURE: CT HEAD/BRAIN WO CON TECHNIQUE: Computerized tomography of the head was performed without contrast material. CT DOSE LENGTH PRODUCT: mGycm HISTORY: dizziness, syncope COMPARISONS: 09/13/2018 . FINDINGS: Skull and scalp: Normal . Paranasal sinuses: Normal . Ventricles and subarachnoid spaces: Normal . Cerebrum: No evidence of hemorrhage, acute infarction or mass . Cerebellum and brainstem: No evidence of hemorrhage, acute infarction or mass . There is stable mild volume loss in the posterior fossa. Vasculature: Normal . Other: None . ASPECTS: 10 IMPRESSION: Stable mild volume loss in the posterior fossa. No acute intracranial process. . This document is electronically signed by Genesis Keller MD., October 09 2018 05:12:51 AM ET Transcribed By: RB Dictated By: GENESIS KELLER MD Electronically Authenticated By: GENESIS KELLER MD Signed Date/Time: 10/09/18513 DD/ 7 TD/TT: 10/09/18507 - Differential Diagnosis DKA, syncope, dehydration Critical care attestation.: If time is entered above; I have spent that time in minutes in the direct care of this critically ill patient, excluding procedure time. ED Disposition Clinical Impression: Syncope, Hyperglycemia Disposition: -09 OP ADMIT IP TO THIS HOSP Is pt being admited?: Yes Does the pt Need Aspirin: Yes Condition: Fair Instructions: Syncope (ED) Referrals: CORNELL MEDINA MD [Primary Care Provider] - 3-5 Days Time of Disposition: 05:17 (hospitalist paged (Dr. Letty Choi))
[2018-10-09] MEDS ORDERED: HumuLIN R IV ONE (02:31)
[2018-10-09] MEDS ORDERED: HumuLIN R ONE ×5 (02:36→14:00)
[2018-10-09] MEDS ORDERED: SUBLIMAZE IV ONE (03:05)
[2018-10-09] MEDS ORDERED: ZOFRAN IV ONE (03:05)
--- NOTE | 2018-10-09 05:14 | Cat Scan Report ---
PROCEDURE: CT HEAD/BRAIN WO CON TECHNIQUE: Computerized tomography of the head was performed without contrast material. CT DOSE LENGTH PRODUCT: mGycm HISTORY: dizziness, syncope COMPARISONS: 09/13/2018 . FINDINGS: Skull and scalp: Normal . Paranasal sinuses: Normal . Ventricles and subarachnoid spaces: Normal . Cerebrum: No evidence of hemorrhage, acute infarction or mass . Cerebellum and brainstem: No evidence of hemorrhage, acute infarction or mass . There is stable mild volume loss in the posterior fossa. Vasculature: Normal . Other: None . ASPECTS: 10 IMPRESSION: Stable mild volume loss in the posterior fossa. No acute intracranial process. . This document is electronically signed by John Keller MD., October 09 2018 05:12:51 AM ET
[2018-10-09] MEDS ORDERED: ASPIRIN PO ONE (05:17)
[2018-10-09] MEDS ORDERED: SODIUM CHLORIDE FLUSH SYRINGE 10 ML IV PRN (05:25)
[2018-10-09] MEDS ORDERED: ZOFRAN IV PRN (05:25)
[2018-10-09] MEDS ORDERED: D50W (25GM) Syringe IV PRN (05:25)
[2018-10-09] MEDS ORDERED: TYLENOL PO PRN (05:25)
--- NOTE | 2018-10-09 05:55 | History and Physical Report ---
<ALBA BURTON - Last Filed: 10/09/18 05:51> History of Present Illness Date of examination: 10/09/18 Date of admission: 10/09/2018 Chief complaint: Syncope and hypoglycemia History of present illness: 52-year-old -[place] male who is an ongoing smoker with history of hypertension, CHF, DM 2, and arthritis who presents as a CAD with complaints of hyperglycemia. Patient states that symptoms began yesterday morning. He starte d feeling extremely thirsty and lethargic. He checked his blood sugar and it was in the 200s. Patient states that his blood sugar has been running in the 200 for the past 2-3 s/p hernia repair and rotator cuff surgery. He is compliant with oral anti-glycemic medication. He complains of excessive thirst with frequent urination and blurred vision. Later in the evening he was sitting down watching TV and attempted to stand up, when he had a questionable syncopal episode. Patient is not 100% sure if he lost consciousness. He then checked his blood sugar, the machine read greater than 600, so he decided to come in for further evaluation. Admits: blurred vision, excessive thirst, polyuria with post void residual drips Denies: fever, diaphoresis, cough, hemoptysis, or headache Past History Past Medical History: diabetes, heart failure, hypertension, other (arthritis) Past Surgical History: hernia repair, Other (rotator cuff repair) Social history: , lives with family, smoking (every day smoker) Family history: no significant family history Medications and Allergies Allergies Allergy/AdvReac Type Severity Reaction Status Date / Time codeine Allergy Hives Verified 09/13/18 16:17 Home Medications Medication Instructions Recorded Confirmed Last Taken Type traZODone [Desyrel] 100 mg PO QHS 10/09/18 10/09/18 Unknown History AtorvaSTATin [Lipitor] 40 mg PO QHS #30 tablet 10/12/18 Unknown Rx Insulin Glargine [Lantus VIAL] 40 units SUB-Q QHS 30 Days units 10/12/18 Unknown Rx Lispro Insulin [HumaLOG] 15 unit SUB-Q AC 30 Days units 10/12/18 Unknown Rx diphenhydrAMINE [Benadryl CAP] 25 mg PO Q6H PRN #30 capsule 10/12/18 Unknown Rx oxyCODONE /ACETAMINOPHEN [Percocet 2 tab PO Q6H PRN #20 tablet 10/12/18 Unknown Rx 5/325 mg] Active Meds: Active Medications Acetaminophen (Tylenol) 650 mg PO Q4H PRN PRN Reason: Pain MILD(1-3)/Fever >100.5/GARCIA Aspirin (Baby Aspirin) 81 mg PO QDAY YENY Atorvastatin Calcium (Lipitor) 40 mg PO QHS YENY Dextrose (D50w (25gm) Syringe) 50 ml IV PRN PRN PRN Reason: Hypoglycemia Docusate Sodium (Colace) 100 mg PO BID YENY Enoxaparin Sodium (Lovenox) 40 mg SUB-Q QDAY@2200 YENY Insulin Glargine (Lantus) 10 units SUB-Q QHS YENY Insulin Human Lispro (Humalog) 0 unit SUB-Q ACHS YENY; Protocol Insulin Human Regular (Humulin R) 5 units SUB-Q AC YENY Ondansetron HCl (Zofran) 4 mg IV Q8H PRN PRN Reason: Nausea And Vomiting Sodium Chloride (Sodium Chloride Flush Syringe 10 Ml) 10 ml IV BID YENY Sodium Chloride (Sodium Chloride Flush Syringe 10 Ml) 10 ml IV PRN PRN PRN Reason: LINE FLUSH Review of Systems All systems: negative (reviewed and no additional remarkable complaints except as noted below) Eyes: bilateral: blurred vision Neurological: syncope (unsure whether there was loss of consciousness) Endocrine: excessive thirst, polyuria, high blood sugars Exam - Physical Exam Narrative exam: Physical exam General appearance: Present: No acute distress, alert and oriented 3, middle- age -[place] male - EENT Eyes: Present: PERRL, EOM intact ENT: hearing intact, normal dentition - Neck Neck: Present: supple, normal ROM - Respiratory Respiratory effort: Non-labored Respiratory: Clear throughout - Cardiovascular Heart rate:84 (bpm) Rhythm: Sinus rhythm regular Heart Sounds: Present: S1 & S2. Absent: rub, click - Extremities Extremities: no ischemia, pulses intact, - Peripheral Assessment Peripheral Pulses: within normal limits - Abdominal General gastrointestinal: soft, non-tender, normal bowel sounds - Integumentary Integumentary: Present: warm, dry - Musculoskeletal Musculoskeletal: able To move all extremities -Neurological Neurological: CNII-XII intact - Psychiatric Psychiatric: cooperative - Constitutional Vitals: Temp Pulse Resp BP Pulse Ox 98.6 F 85 14 125/64 98 10/09/18 01:10 10/09/18 04:00 10/09/18 04:00 10/09/18 04:00 10/09/18 04:00 Results - Labs CBC & Chem 7: 10/09/18 00:50 10/09/18 00:50 Labs: Laboratory Last Values WBC 8.1 K/mm3 (4.5-11.0) 10/09/18 00:50 RBC 5.21 M/mm3 (3.65-5.03) H 10/09/18 00:50 Hgb 16.9 gm/dl (11.8-15.2) H 10/09/18 00:50 Hct 48.9 % (35.5-45.6) H 10/09/18 00:50 MCV 94 fl (84-94) 10/09/18 00:50 MCH 33 pg (28-32) H 10/09/18 00:50 MCHC 35 % (32-34) H 10/09/18 00:50 RDW 13.8 % (13.2-15.2) 10/09/18 00:50 Plt Count 164 K/mm3 (140-440) 10/09/18 00:50 Lymph % (Auto) 27.8 % (13.4-35.0) 10/09/18 00:50 [place] % (Auto) 6.6 % (0.0-7.3) 10/09/18 00:50 Eos % (Auto) 1.5 % (0.0-4.3) 10/09/18 00:50 Baso % (Auto) 0.7 % (0.0-1.8) 10/09/18 00:50 Lymph # 2.2 K/mm3 (1.2-5.4) 10/09/18 00:50 [place] # 0.5 K/mm3 (0.0-0.8) 10/09/18 00:50 Eos # 0.1 K/mm3 (0.0-0.4) 10/09/18 00:50 Baso # 0.1 K/mm3 (0.0-0.1) 10/09/18 00:50 Seg Neutrophils % 63.4 % (40.0-70.0) 10/09/18 00:50 Seg Neutrophils # 5.1 K/mm3 (1.8-7.7) 10/09/18 00:50 VBG pH 7.340 (7.320-7.420) 10/09/18 01:35 Sodium 130 mmol/L (137-145) L 10/09/18 00:50 Potassium 4.7 mmol/L (3.6-5.0) 10/09/18 00:50 Chloride 89.1 mmol/L (98-107) L 10/09/18 00:50 Carbon Dioxide 29 mmol/L (22-30) 10/09/18 00:50 17 mmol/L 10/09/18 00:50 BUN 12 mg/dL (9-20) 10/09/18 00:50 1.2 mg/dL (0.8-1.5) 10/09/18 00:50 Estimated GFR > 60 ml/min 10/09/18 00:50 10 % 10/09/18 00:50 Glucose 683 mg/dL (75-100) H* 10/09/18 00:50 POC Glucose 360 (70-105) H 10/09/18 03:26 Calcium 9.9 mg/dL (8.4-10.2) 10/09/18 00:50 0.30 mg/dL (0.1-1.2) 10/09/18 00:50 AST 22 units/L (5-40) 10/09/18 00:50 ALT 28 units/L (7-56) 10/09/18 00:50 145 units/L (35-129) H 10/09/18 00:50 < 0.010 ng/mL (0.00-0.029) 10/09/18 00:50 7.4 g/dL (6.3-8.2) 10/09/18 00:50 4.1 g/dL (3.9-5) 10/09/18 00:50 1.2 % 10/09/18 00:50 Colorless (Yellow) 10/09/18 00:25 Clear (Clear) 10/09/18 00:25 8.0 (5.0-7.0) H 10/09/18 00:25 Ur Specific [place] 1.027 (1.003-1.030) 10/09/18 00:25 <15 mg/dl mg/dL (Negative) 10/09/18 00:25 >=500 mg/dL (Negative) 10/09/18 00:25 Neg mg/dL (Negative) 10/09/18 00:25 Neg (Negative) 10/09/18 00:25 Neg (Negative) 10/09/18 00:25 Neg (Negative) 10/09/18 00:25 < 2.0 mg/dL (<2.0) 10/09/18 00:25 Ur Leukocyte Esterase Neg (Negative) 10/09/18 00:25 < 1.0 /HPF (0.0-6.0) 10/09/18 00:25 1.0 /HPF (0.0-6.0) 10/09/18 00:25 - Imaging and Cardiology EKG: image reviewed (a 4 bpm sinus rhythm) CT Scan - head: report reviewed (Findings: Stable mild volume loss in the posterior fossa. No acute intracranial process), image reviewed Assessment and Plan Assessment and plan: 52-year-old -[place] male who is an ongoing smoker with history of hypertension, CHF, DM 2, and arthritis who presents as a CAD with complaints of hyperglycemia. On presentation initial blood glucose 683 he was given 10 units regular insulin 1 L normal saline. Rechecked BG and it was down to 420. CT head unrevealing for acute intracranial processes. We'll admit to telemetry for further evaluation. Hyperglycemia DM 2-uncontrolled Questionable syncope Hyponatremia CHF Hypertension- controlled Arthritis Plan: Continue supportive care Neuro checks Echo and bilateral carotid Doppler pending POC BG monitoring Scheduled Lantus and pre-meal regular insulin; sliding-scale coverage PT OT eval pending Monitor electrolytes; Replete as needed Patient received 1 L NS in ED; given history of CHF do not want to volume overload; will monitor sodium for now DVT PPX on lovenox and SCD's Medication reconciliation pending This patient is seen in conjunction with Dr. Amanda Choi Advance Directives: No VTE prophylaxis?: Chemical Plan of care discussed with patient/family: Yes <CLAUDE CHOI - Last Filed: 10/12/18 22:45> Medications and Allergies Active Meds: Active Medications Acetaminophen (Tylenol) 650 mg PO Q4H PRN PRN Reason: Pain MILD(1-3)/Fever >100.5/GARCIA Aspirin (Baby Aspirin) 81 mg PO QDAY [facility] Atorvastatin Calcium (Lipitor) 40 mg PO QHS [facility] Dextrose (D50w (25gm) Syringe) 50 ml IV PRN PRN PRN Reason: Hypoglycemia Docusate Sodium (Colace) 100 mg PO BID [facility] Enoxaparin Sodium (Lovenox) 40 mg SUB-Q QDAY@2200 YENY Insulin Glargine (Lantus) 10 units SUB-Q QHS [facility] Insulin Human Lispro (Humalog) 0 unit SUB-Q ACHS YENY; Protocol Insulin Human Regular (Humulin R) 5 units SUB-Q AC [facility] Ondansetron HCl (Zofran) 4 mg IV Q8H PRN PRN Reason: Nausea And Vomiting Sodium Chloride (Sodium Chloride Flush Syringe 10 Ml) 10 ml IV BID [facility] Sodium Chloride (Sodium Chloride Flush Syringe 10 Ml) 10 ml IV PRN PRN PRN Reason: LINE FLUSH Exam - Constitutional Vitals: Temp Pulse Resp BP Pulse Ox 98.6 F 76 11 L 119/65 97 10/09/18 01:10 10/09/18 06:00 10/09/18 06:00 10/09/18 06:00 10/09/18 06:00 Results - Labs CBC & Chem 7: 10/10/18 04:36 10/10/18 04:36 Labs: Laboratory Last Values WBC 8.1 K/mm3 (4.5-11.0) 10/09/18 00:50 RBC 5.21 M/mm3 (3.65-5.03) H 10/09/18 00:50 Hgb 16.9 gm/dl (11.8-15.2) H 10/09/18 00:50 Hct 48.9 % (35.5-45.6) H 10/09/18 00:50 MCV 94 fl (84-94) 10/09/18 00:50 MCH 33 pg (28-32) H 10/09/18 00:50 MCHC 35 % (32-34) H 10/09/18 00:50 RDW 13.8 % (13.2-15.2) 10/09/18 00:50 Plt Count 164 K/mm3 (140-440) 10/09/18 00:50 Lymph % (Auto) 27.8 % (13.4-35.0) 10/09/18 00:50 [place] % (Auto) 6.6 % (0.0-7.3) 10/09/18 00:50 Eos % (Auto) 1.5 % (0.0-4.3) 10/09/18 00:50 Baso % (Auto) 0.7 % (0.0-1.8) 10/09/18 00:50 Lymph # 2.2 K/mm3 (1.2-5.4) 10/09/18 00:50 [place] # 0.5 K/mm3 (0.0-0.8) 10/09/18 00:50 Eos # 0.1 K/mm3 (0.0-0.4) 10/09/18 00:50 Baso # 0.1 K/mm3 (0.0-0.1) 10/09/18 00:50 Seg Neutrophils % 63.4 % (40.0-70.0) 10/09/18 00:50 Seg Neutrophils # 5.1 K/mm3 (1.8-7.7) 10/09/18 00:50 VBG pH 7.340 (7.320-7.420) 10/09/18 01:35 Sodium 130 mmol/L (137-145) L 10/09/18 00:50 Potassium 4.7 mmol/L (3.6-5.0) 10/09/18 00:50 Chloride 89.1 mmol/L (98-107) L 10/09/18 00:50 Carbon Dioxide 29 mmol/L (22-30) 10/09/18 00:50 17 mmol/L 10/09/18 00:50 BUN 12 mg/dL (9-20) 10/09/18 00:50 1.2 mg/dL (0.8-1.5) 10/09/18 00:50 Estimated GFR > 60 ml/min 10/09/18 00:50 10 % 10/09/18 00:50 Glucose 397 mg/dL (75-100) H 10/09/18 05:45 POC Glucose 360 (70-105) H 10/09/18 03:26 10.5 % (4-6) H 10/09/18 05:45 Calcium 9.9 mg/dL (8.4-10.2) 10/09/18 00:50 0.30 mg/dL (0.1-1.2) 10/09/18 00:50 AST 22 units/L (5-40) 10/09/18 00:50 ALT 28 units/L (7-56) 10/09/18 00:50 145 units/L (35-129) H 10/09/18 00:50 < 0.010 ng/mL (0.00-0.029) 10/09/18 00:50 7.4 g/dL (6.3-8.2) 10/09/18 00:50 4.1 g/dL (3.9-5) 10/09/18 00:50 1.2 % 10/09/18 00:50 Colorless (Yellow) 10/09/18 00:25 Clear (Clear) 10/09/18 00:25 8.0 (5.0-7.0) H 10/09/18 00:25 Ur Specific [place] 1.027 (1.003-1.030) 10/09/18 00:25 <15 mg/dl mg/dL (Negative) 10/09/18 00:25 >=500 mg/dL (Negative) 10/09/18 00:25 Neg mg/dL (Negative) 10/09/18 00:25 Neg (Negative) 10/09/18 00:25 Neg (Negative) 10/09/18 00:25 Neg (Negative) 10/09/18 00:25 < 2.0 mg/dL (<2.0) 10/09/18 00:25 Ur Leukocyte Esterase Neg (Negative) 10/09/18 00:25 < 1.0 /HPF (0.0-6.0) 10/09/18 00:25 1.0 /HPF (0.0-6.0) 10/09/18 00:25 Assessment and Plan Assessment and plan: 53 year old man with h/o CHF, HTN, DM comes to ER for possible syncope. Agree with above workup, add d-dimer. Pt seen and examined, d/w [employer]
--- NOTE | 2018-10-09 08:52 | Vascular Lab Report ---
PROCEDURE: VL CAROTID DUPLEX BILAT TECHNIQUE: Carotid duplex Doppler HISTORY: syncopal episode COMPARISON: None FINDINGS: There is a mild amount of plaque bilaterally. There is no abnormal ICA flow velocity. ICA/CCA ratios are normal, 0.69 on the right and 0.86 on the left. Findings indicate no stenosis of hemodynamic significance, less than 50%. Vertebral artery flow is antegrade bilaterally. IMPRESSION: No evidence of any hemodynamically significant stenosis. This document is electronically signed by Francia Veronica MD., October 09 2018 08:49:58 AM ET
[2018-10-09] MEDS ORDERED: HumaLOG SUB-Q ONE ×5 (09:16→18:35)
[2018-10-09] MEDS: HumaLOG SUB-Q SCH ×4 (09:19→21:55)
[2018-10-09] MEDS: HumuLIN R SUB-Q SCH ×2 (09:21→14:03)
[2018-10-09] MEDS ORDERED: PERCOCET 5/325 ONE ×2 (09:47→16:39)
[2018-10-09] MEDS: PERCOCET 5/325 PO PRN ×3 (09:50→21:59)
[2018-10-09] MEDS ORDERED: COLACE ONE (09:53)
[2018-10-09] MEDS ORDERED: BABY ASPIRIN ONE (09:54)
[2018-10-09] MEDS: BABY ASPIRIN PO SCH (09:56)
[2018-10-09] MEDS: COLACE PO SCH ×2 (09:57→21:59)
[2018-10-09] MEDS: SODIUM CHLORIDE FLUSH SYRINGE 10 ML IV SCH ×2 (09:57→21:59)
[2018-10-09] MEDS ORDERED: NACL 0.45% 1000 ML 1,000 ML IV ONE (14:24)
[2018-10-09] MEDS: NACL 0.45% 1000 ML 1,000 ML IV SCH ×2 (14:35→21:54)
[2018-10-09] MEDS ORDERED: HumaLOG SUB-Q SCH (16:30)
[2018-10-09] MEDS: LOVENOX SUB-Q SCH (21:59)
[2018-10-09] MEDS ORDERED: LANTUS SUB-Q SCH (22:00)
[2018-10-09] MEDS: LANTUS SUB-Q SCH (22:31)
[2018-10-10 04:59] LABS: Basophils % (Auto) 0.3 % (0.0-1.8); Eosinophils # (Auto) 0.1 K/mm3 (0.0-0.4); Eosinophils % (Auto) 1.6 % (0.0-4.3); Hematocrit 43.4 % (35.5-45.6); Hemoglobin 14.9 gm/dl (11.8-15.2); Lymphocytes % (Auto) 36.4 % (13.4-35.0); Mean Corpuscular HGB Conc 34 % (32-34); Mean Corpuscular Volume 93 fl (84-94); Monocytes # (Auto) 0.3 K/mm3 (0.0-0.8); Monocytes % (Auto) 5.9 % (0.0-7.3); Platelet Count 137 K/mm3 (140-440); Red Blood Count 4.67 M/mm3 (3.65-5.03); Red Cell Distribution Width 13.6 % (13.2-15.2)
[2018-10-10] MEDS: NACL 0.45% 1000 ML 1,000 ML IV SCH ×2 (06:02→14:14)
[2018-10-10] MEDS: HumaLOG SUB-Q SCH ×8 (06:03→22:00)
[2018-10-10 06:32] LABS: BUN/Creatinine Ratio 13; Blood Urea Nitrogen 10 mg/dL (9-20); Calcium 7.8 mg/dL (8.4-10.2); Chol/HDL Ratio 6.67 %; HDL Cholesterol 28 mg/dL (40-59); Hemolysis Index 28; LDL Cholesterol,Direct TNR mg/dL (50-130)
[2018-10-10] MEDS: PERCOCET 5/325 PO PRN ×2 (07:18→14:08)
[2018-10-10] MEDS: HumuLIN R SUB-Q SCH (08:48)
[2018-10-10] MEDS: BABY ASPIRIN PO SCH (09:26)
[2018-10-10] MEDS: SODIUM CHLORIDE FLUSH SYRINGE 10 ML IV SCH ×2 (09:29→22:00)
[2018-10-10] MEDS: COLACE PO SCH ×2 (09:29→22:00)
[2018-10-10] MEDS ORDERED: AFLURIA QUAD 2018-2019 SYRINGE IM ONE (12:00)
--- NOTE | 2018-10-10 12:01 | Progress Note ---
Assessment and Plan Assessment and plan: Carotid Dopplers; no evidence of emergent dynamic significant stenosis CT head; no acute process 52-year-old man history of tobacco abuse hypertension and CHF type 2 diabetes, CAD who comes to the hospital complaining of elevated blood sugars. States that he was not able to control them his meds at home. Diagnoses Type 2 diabetes of persistent hyperglycemia Optimize insulins Presyncope Patient and his deny syncope, states that he was dizzy, patient has received IV hydration, CT head normal Hyponatremia Likely due to hyperglycemia, improved with IV fluids CHF; not in exacerbation, keep euvolemic Hypertension, continue BP meds Shoulder pain; had a recent shoulder surgery, orthopedic surgery consult History Interval history: Complains of left shoulder pain which is chronic Review of systems Constitutional: No fevers, no malaise, no joint pains CVS: No chest pain, no orthopnea, no dyspnea on exertion, no pedal edema GI: No abdominal pain, no diarrhea, no vomiting, no constipation Respiratory: no wheezing, no coughing Hospitalist Physical - Physical exam Narrative exam: General.: Appears well, no distress, nontoxic HEENT: Moist mucous membranes, extraocular muscles intact, no lymphadenopathy Neck: supple Cardiac: S1-S2 heard Lungs: clear to auscultation bilaterally Abdomen: soft , nontender, nondistended, bowel sounds positive Extremities: no edema clubbing or cyanosis Skin: no rash or lesions Neurologic: no gross focal deficits Psych: calm, and cooperative - Constitutional Vitals: Temp Pulse Resp BP Pulse Ox 98.0 F 62 18 115/59 97 10/10/18 11:30 10/10/18 11:30 10/10/18 11:30 10/10/18 11:30 10/10/18 11:30 Results - Labs CBC & Chem 7: 10/10/18 04:36 10/10/18 04:36 Labs: Laboratory Last Values WBC 5.5 K/mm3 (4.5-11.0) 10/10/18 04:36 RBC 4.67 M/mm3 (3.65-5.03) 10/10/18 04:36 Hgb 14.9 gm/dl (11.8-15.2) 10/10/18 04:36 Hct 43.4 % (35.5-45.6) 10/10/18 04:36 MCV 93 fl (84-94) 10/10/18 04:36 MCH 32 pg (28-32) 10/10/18 04:36 MCHC 34 % (32-34) 10/10/18 04:36 RDW 13.6 % (13.2-15.2) 10/10/18 04:36 Plt Count 137 K/mm3 (140-440) L 10/10/18 04:36 Lymph % (Auto) 36.4 % (13.4-35.0) H 10/10/18 04:36 [place] % (Auto) 5.9 % (0.0-7.3) 10/10/18 04:36 Eos % (Auto) 1.6 % (0.0-4.3) 10/10/18 04:36 Baso % (Auto) 0.3 % (0.0-1.8) 10/10/18 04:36 Lymph # 2.0 K/mm3 (1.2-5.4) 10/10/18 04:36 [place] # 0.3 K/mm3 (0.0-0.8) 10/10/18 04:36 Eos # 0.1 K/mm3 (0.0-0.4) 10/10/18 04:36 Baso # 0.0 K/mm3 (0.0-0.1) 10/10/18 04:36 Seg Neutrophils % 55.8 % (40.0-70.0) 10/10/18 04:36 Seg Neutrophils # 3.1 K/mm3 (1.8-7.7) 10/10/18 04:36 285.66 ng/mlDDU (0-234) H 10/09/18 07:14 VBG pH 7.340 (7.320-7.420) 10/09/18 01:35 Sodium 129 mmol/L (137-145) L 10/10/18 04:36 Potassium 3.8 mmol/L (3.6-5.0) 10/10/18 04:36 Chloride 94.8 mmol/L (98-107) L 10/10/18 04:36 Carbon Dioxide 21 mmol/L (22-30) L D 10/10/18 04:36 17 mmol/L 10/10/18 04:36 BUN 10 mg/dL (9-20) 10/10/18 04:36 0.8 mg/dL (0.8-1.5) 10/10/18 04:36 Estimated GFR > 60 ml/min 10/10/18 04:36 13 % 10/10/18 04:36 Glucose 420 mg/dL (75-100) H 10/10/18 04:36 POC Glucose 432 (70-105) H 10/10/18 07:57 10.5 % (4-6) H 10/09/18 05:45 Calcium 7.8 mg/dL (8.4-10.2) L D 10/10/18 04:36 0.30 mg/dL (0.1-1.2) 10/09/18 00:50 AST 22 units/L (5-40) 10/09/18 00:50 ALT 28 units/L (7-56) 10/09/18 00:50 145 units/L (35-129) H 10/09/18 00:50 < 0.010 ng/mL (0.00-0.029) 10/09/18 00:50 7.4 g/dL (6.3-8.2) 10/09/18 00:50 4.1 g/dL (3.9-5) 10/09/18 00:50 1.2 % 10/09/18 00:50 Triglycerides 852 mg/dL (2-149) H 10/10/18 04:36 Cholesterol 187 mg/dL (50-199) 10/10/18 04:36 TNR 10/10/18 04:36 28 mg/dL (40-59) L 10/10/18 04:36 6.67 % 10/10/18 04:36 Colorless (Yellow) 10/09/18 00:25 Clear (Clear) 10/09/18 00:25 8.0 (5.0-7.0) H 10/09/18 00:25 Ur Specific [place] 1.027 (1.003-1.030) 10/09/18 00:25 <15 mg/dl mg/dL (Negative) 10/09/18 00:25 >=500 mg/dL (Negative) 10/09/18 00:25 Neg mg/dL (Negative) 10/09/18 00:25 Neg (Negative) 10/09/18 00:25 Neg (Negative) 10/09/18 00:25 Neg (Negative) 10/09/18 00:25 < 2.0 mg/dL (<2.0) 10/09/18 00:25 Ur Leukocyte Esterase Neg (Negative) 10/09/18 00:25 < 1.0 /HPF (0.0-6.0) 10/09/18 00:25 1.0 /HPF (0.0-6.0) 10/09/18 00:25 Active Medications - Current Medications Current Medications: Generic Name Dose Route Start Last Admin Trade Name Freq PRN Reason Stop Dose Admin Acetaminophen 650 mg 10/09/18 05:25 Tylenol PO Q4H PRN Pain MILD(1-3)/Fever >100.5/GARCIA Aspirin 81 mg 10/09/18 10:00 10/10/18 09:26 Baby Aspirin PO 81 mg QDAY YENY Administration Atorvastatin Calcium 40 mg 10/09/18 22:00 10/09/18 21:59 Lipitor PO 40 mg QHS YENY Administration Dextrose 50 ml 10/09/18 05:25 D50w (25gm) Syringe IV PRN PRN Hypoglycemia Docusate Sodium 100 mg 10/09/18 10:00 10/10/18 09:29 Colace PO 100 mg BID YENY Administration Enoxaparin Sodium 40 mg 10/09/18 22:00 10/09/18 21:59 Lovenox SUB-Q 40 mg QDAY@2200 YENY Administration Sodium Chloride 1,000 mls @ 125 mls/hr 10/09/18 12:00 10/10/18 06:02 Nacl 0.45% 1000 Ml IV 10/11/18 11:59 125 mls/hr DIRECT YENY Administration Insulin Glargine 20 units 10/09/18 22:00 10/09/18 22:31 Lantus SUB-Q 20 units QHS YENY Administration Insulin Human Lispro 0 unit 10/09/18 07:30 10/10/18 09:29 Humalog SUB-Q 8 unit ACHS YENY Administration Protocol Insulin Human Lispro 10 unit 10/10/18 06:30 10/10/18 09:28 Humalog SUB-Q 10 unit AC YENY Administration Ondansetron HCl 4 mg 10/09/18 05:25 Zofran IV Q8H PRN Nausea And Vomiting Oxycodone/Acetaminophen 1 tab 10/09/18 09:28 10/10/18 07:18 Percocet 5/325 PO 1 tab Q6H PRN Administration Pain, Moderate (4-6) Sodium Chloride 10 ml 10/09/18 10:00 10/10/18 09:29 Sodium Chloride Flush Syringe 10 Ml IV 10 ml BID YENY Administration Sodium Chloride 10 ml 10/09/18 05:25 Sodium Chloride Flush Syringe 10 Ml IV PRN PRN LINE FLUSH
[2018-10-10] MEDS ORDERED: PERCOCET 5/325 PO PRN (15:34)
--- NOTE | 2018-10-10 18:41 | Consultation ---
History of Present Illness - [facility] Consult date: 10/10/18 Consult reason: joint pain History of present illness: 52-year-old male well known to me from previous admission for left shoulder arthroscopy, patient developed dizziness and syncope and subsequently fell onto his left upper extremity now complaining of increased pain Past History Past Medical History: diabetes, heart failure, hypertension, other (arthritis) Past Surgical History: hernia repair, Other (rotator cuff repair) Social history: , lives with family, smoking (every day smoker) Family history: no significant family history Medications and Allergies Allergies Allergy/AdvReac Type Severity Reaction Status Date / Time codeine Allergy Hives Verified 09/13/18 16:17 Home Medications Medication Instructions Recorded Confirmed Last Taken Type traZODone [Desyrel] 100 mg PO QHS 10/09/18 10/09/18 Unknown History AtorvaSTATin [Lipitor] 40 mg PO QHS #30 tablet 10/12/18 Unknown Rx diphenhydrAMINE [Benadryl CAP] 25 mg PO Q6H PRN #30 capsule 10/12/18 Unknown Rx oxyCODONE /ACETAMINOPHEN [Percocet 2 tab PO Q6H PRN #20 tablet 10/12/18 Unknown Rx 5/325 mg] Insulin Lispro 30 unit SQ AC 30 Days vial 10/13/18 Unknown Rx metFORMIN [Glucophage] 1,000 mg PO BID 30 Days tablet 10/13/18 Unknown Rx Insulin Glargine [Lantus VIAL] 40 units SUB-Q BIDDIAB 30 Days 10/14/18 Unknown Rx units Active Meds: Active Medications Acetaminophen (Tylenol) 650 mg PO Q4H PRN PRN Reason: Pain MILD(1-3)/Fever >100.5/GARCIA Aspirin (Baby Aspirin) 81 mg PO QDAY [facility] Last Admin: 10/10/18 09:26 Dose: 81 mg Documented by: Atorvastatin Calcium (Lipitor) 40 mg PO QHS [facility] Last Admin: 10/09/18 21:59 Dose: 40 mg Documented by: Dextrose (D50w (25gm) Syringe) 50 ml IV PRN PRN PRN Reason: Hypoglycemia Docusate Sodium (Colace) 100 mg PO BID [facility] Last Admin: 10/10/18 09:29 Dose: 100 mg Documented by: Enoxaparin Sodium (Lovenox) 40 mg SUB-Q QDAY@2200 [facility] Last Admin: 10/09/18 21:59 Dose: 40 mg Documented by: Sodium Chloride (Nacl 0.45% 1000 Ml) 1,000 mls @ 125 mls/hr IV DIRECT YENY Stop: 10/11/18 11:59 Last Admin: 10/10/18 14:14 Dose: 125 mls/hr Documented by: Insulin Glargine (Lantus) 20 units SUB-Q QHS [facility] Last Admin: 10/09/18 22:31 Dose: 20 units Documented by: Insulin Human Lispro (Humalog) 0 unit SUB-Q ACHS [facility]; Protocol Last Admin: 10/10/18 17:55 Dose: 3 unit Documented by: Insulin Human Lispro (Humalog) 10 unit SUB-Q AC [facility] Last Admin: 10/10/18 17:55 Dose: 10 unit Documented by: Ondansetron HCl (Zofran) 4 mg IV Q8H PRN PRN Reason: Nausea And Vomiting Oxycodone/Acetaminophen (Percocet 5/325) 2 tab PO Q6H PRN PRN Reason: Pain, Moderate (4-6) Last Admin: 10/10/18 15:52 Dose: 1 tab Documented by: Sodium Chloride (Sodium Chloride Flush Syringe 10 Ml) 10 ml IV BID [facility] Last Admin: 10/10/18 09:29 Dose: 10 ml Documented by: Sodium Chloride (Sodium Chloride Flush Syringe 10 Ml) 10 ml IV PRN PRN PRN Reason: LINE FLUSH Physical Examination - Physical exam Narrative exam: Left shoulder - no obvious deformity stab wounds healing well patient is tender over a anterior lateral border of the shoulder active range of motion decreased secondary to pain Eyes: PERRL ENT: Positive: clear oral mucosa Respiratory effort: normal Respiratory: bilateral: CTA Rhythm: regular Heart Sounds: Positive: S1 & S2 General gastrointestinal: Positive: soft, non-tender, non-distended, normal bowel sounds Integumentary: clear, warm, dry Neurologic: Positive: CNII-XII intact, moves all extremities, gait normal. Negative: focal deficits - Cervical Spine Neck pain: none Tenderness with palpation: none Full ROM: yes ROM: flexion: normal ROM: extension: normal ROM: rotation right: normal ROM: rotation left: normal ROM: lateral flexion right: normal ROM: lateral flexion left: normal - Lumbar Spine Back pain: none Tenderness with palpation: none Appearance: normal Full ROM: yes ROM: flexion: normal ROM: extension: normal ROM: rotation right: normal ROM: rotation left: normal ROM: lateral flexion right: normal ROM: lateral flexion left: normal Assessment and Plan Left shoulder pain status post arthroscopy left shoulder We will obtain x-rays left shoulder to rule out fracture dislocation
[2018-10-10] MEDS: LOVENOX SUB-Q SCH (22:00)
[2018-10-10] MEDS: LANTUS SUB-Q SCH (22:00)
[2018-10-11] MEDS: NACL 0.45% 1000 ML 1,000 ML IV SCH ×2 (02:43→09:52)
[2018-10-11] MEDS: PERCOCET 5/325 PO PRN ×3 (05:05→19:50)
--- NOTE | 2018-10-11 08:32 | XRay Report ---
LEFT SHOULDER, 3 views: History: Left shoulder pain status post fall. Routine views demonstrate normal bony and soft tissue structures with normal joint alignment of the shoulder. IMPRESSION: Left shoulder within normal limits.
[2018-10-11] MEDS ORDERED: LANTUS SUB-Q SCH ×2 (09:20→12:47)
[2018-10-11] MEDS ORDERED: LANTUS SUB-Q ONE (09:20)
[2018-10-11] MEDS ORDERED: HumaLOG SUB-Q SCH (09:23)
[2018-10-11] MEDS: BABY ASPIRIN PO SCH (09:44)
[2018-10-11] MEDS: COLACE PO SCH ×2 (09:44→22:06)
[2018-10-11] MEDS: HumaLOG SUB-Q SCH ×6 (10:42→22:02)
[2018-10-11] MEDS: SODIUM CHLORIDE FLUSH SYRINGE 10 ML IV SCH ×2 (10:43→22:04)
--- NOTE | 2018-10-11 12:35 | Progress Note ---
Assessment and Plan Assessment and plan: 52-year-old man history of tobacco abuse hypertension and CHF type 2 diabetes, CAD who comes to the hospital complaining of elevated blood sugars. States that he was not able to control them his meds at home. Left shoulder x-ray; within normal limits Carotid Dopplers; no evidence of emergent dynamic significant stenosis CT head; no acute process Diagnoses Type 2 diabetes of persistent hyperglycemia Optimize insulins Presyncope/dehydration Patient and his deny syncope, states that he was dizzy, patient has received IV hydration, CT head normal Hyponatremia Likely due to hyperglycemia, improved with appreciated, shoulder x-ray negative IV fluids CHF; not in exacerbation, keep euvolemic Hypertension, continue BP meds Shoulder pain; had a recent shoulder surgery, orthopedic surgery consult History Interval history: Complains of left shoulder pain which is chronic Review of systems Constitutional: No fevers, no malaise, no joint pains CVS: No chest pain, no orthopnea, no dyspnea on exertion, no pedal edema GI: No abdominal pain, no diarrhea, no vomiting, no constipation Respiratory: no wheezing, no coughing Hospitalist Physical - Physical exam Narrative exam: General.: Appears well, no distress, nontoxic HEENT: Moist mucous membranes, extraocular muscles intact, no lymphadenopathy Neck: supple Cardiac: S1-S2 heard Lungs: clear to auscultation bilaterally Abdomen: soft , nontender, nondistended, bowel sounds positive Extremities: no edema clubbing or cyanosis Skin: no rash or lesions Neurologic: no gross focal deficits Psych: calm, and cooperative - Constitutional Vitals: Temp Pulse Resp BP Pulse Ox 97.9 F 71 18 111/53 95 10/11/18 08:40 10/11/18 08:40 10/11/18 08:40 10/11/18 08:40 10/11/18 08:40 Results - Labs CBC & Chem 7: 10/10/18 04:36 10/10/18 04:36 Labs: Laboratory Last Values WBC 5.5 K/mm3 (4.5-11.0) 10/10/18 04:36 RBC 4.67 M/mm3 (3.65-5.03) 10/10/18 04:36 Hgb 14.9 gm/dl (11.8-15.2) 10/10/18 04:36 Hct 43.4 % (35.5-45.6) 10/10/18 04:36 MCV 93 fl (84-94) 10/10/18 04:36 MCH 32 pg (28-32) 10/10/18 04:36 MCHC 34 % (32-34) 10/10/18 04:36 RDW 13.6 % (13.2-15.2) 10/10/18 04:36 Plt Count 137 K/mm3 (140-440) L 10/10/18 04:36 Lymph % (Auto) 36.4 % (13.4-35.0) H 10/10/18 04:36 [place] % (Auto) 5.9 % (0.0-7.3) 10/10/18 04:36 Eos % (Auto) 1.6 % (0.0-4.3) 10/10/18 04:36 Baso % (Auto) 0.3 % (0.0-1.8) 10/10/18 04:36 Lymph # 2.0 K/mm3 (1.2-5.4) 10/10/18 04:36 [place] # 0.3 K/mm3 (0.0-0.8) 10/10/18 04:36 Eos # 0.1 K/mm3 (0.0-0.4) 10/10/18 04:36 Baso # 0.0 K/mm3 (0.0-0.1) 10/10/18 04:36 Seg Neutrophils % 55.8 % (40.0-70.0) 10/10/18 04:36 Seg Neutrophils # 3.1 K/mm3 (1.8-7.7) 10/10/18 04:36 285.66 ng/mlDDU (0-234) H 10/09/18 07:14 VBG pH 7.340 (7.320-7.420) 10/09/18 01:35 Sodium 129 mmol/L (137-145) L 10/10/18 04:36 Potassium 3.8 mmol/L (3.6-5.0) 10/10/18 04:36 Chloride 94.8 mmol/L (98-107) L 10/10/18 04:36 Carbon Dioxide 21 mmol/L (22-30) L D 10/10/18 04:36 17 mmol/L 10/10/18 04:36 BUN 10 mg/dL (9-20) 10/10/18 04:36 0.8 mg/dL (0.8-1.5) 10/10/18 04:36 Estimated GFR > 60 ml/min 10/10/18 04:36 13 % 10/10/18 04:36 Glucose 420 mg/dL (75-100) H 10/10/18 04:36 POC Glucose 475 (70-105) H 10/11/18 08:44 10.5 % (4-6) H 10/09/18 05:45 Calcium 7.8 mg/dL (8.4-10.2) L D 10/10/18 04:36 0.30 mg/dL (0.1-1.2) 10/09/18 00:50 AST 22 units/L (5-40) 10/09/18 00:50 ALT 28 units/L (7-56) 10/09/18 00:50 145 units/L (35-129) H 10/09/18 00:50 < 0.010 ng/mL (0.00-0.029) 10/09/18 00:50 7.4 g/dL (6.3-8.2) 10/09/18 00:50 4.1 g/dL (3.9-5) 10/09/18 00:50 1.2 % 10/09/18 00:50 Triglycerides 852 mg/dL (2-149) H 10/10/18 04:36 Cholesterol 187 mg/dL (50-199) 10/10/18 04:36 TNR 10/10/18 04:36 28 mg/dL (40-59) L 10/10/18 04:36 6.67 % 10/10/18 04:36 Colorless (Yellow) 10/09/18 00:25 Clear (Clear) 10/09/18 00:25 8.0 (5.0-7.0) H 10/09/18 00:25 Ur Specific [place] 1.027 (1.003-1.030) 10/09/18 00:25 <15 mg/dl mg/dL (Negative) 10/09/18 00:25 >=500 mg/dL (Negative) 10/09/18 00:25 Neg mg/dL (Negative) 10/09/18 00:25 Neg (Negative) 10/09/18 00:25 Neg (Negative) 10/09/18 00:25 Neg (Negative) 10/09/18 00:25 < 2.0 mg/dL (<2.0) 10/09/18 00:25 Ur Leukocyte Esterase Neg (Negative) 10/09/18 00:25 < 1.0 /HPF (0.0-6.0) 10/09/18 00:25 1.0 /HPF (0.0-6.0) 10/09/18 00:25 Active Medications - Current Medications Current Medications: Generic Name Dose Route Start Last Admin Trade Name Freq PRN Reason Stop Dose Admin Acetaminophen 650 mg 10/09/18 05:25 Tylenol PO Q4H PRN Pain MILD(1-3)/Fever >100.5/GARCIA Aspirin 81 mg 10/09/18 10:00 10/11/18 09:44 Baby Aspirin PO 81 mg QDAY [facility] Administration Atorvastatin Calcium 40 mg 10/09/18 22:00 10/10/18 22:00 Lipitor PO 40 mg QHS [facility] Administration Dextrose 50 ml 10/09/18 05:25 D50w (25gm) Syringe IV PRN PRN Hypoglycemia Diphenhydramine HCl 25 mg 10/11/18 09:25 Benadryl PO Q6H PRN Itching Docusate Sodium 100 mg 10/09/18 10:00 10/11/18 09:44 Colace PO 100 mg BID YENY Administration Enoxaparin Sodium 40 mg 10/09/18 22:00 10/10/18 22:00 Lovenox SUB-Q 40 mg QDAY@2200 [facility] Administration Insulin Glargine 20 units 10/09/18 22:00 10/10/18 22:00 Lantus SUB-Q 20 units QHS [facility] Administration Insulin Human Lispro 0 unit 10/09/18 07:30 10/11/18 10:42 Humalog SUB-Q Not Given [facility] Protocol Insulin Human Lispro 10 unit 10/10/18 06:30 10/11/18 10:42 Humalog SUB-Q Not Given [facility] Ondansetron HCl 4 mg 10/09/18 05:25 Zofran IV Q8H PRN Nausea And Vomiting Oxycodone/Acetaminophen 2 tab 10/10/18 19:55 10/11/18 05:05 Percocet 5/325 PO 2 tab Q6H PRN Administration Pain , Severe (7-10) Sodium Chloride 10 ml 10/09/18 10:00 10/11/18 10:43 Sodium Chloride Flush Syringe 10 Ml IV 10 ml BID YENY Administration Sodium Chloride 10 ml 10/09/18 05:25 Sodium Chloride Flush Syringe 10 Ml IV PRN PRN LINE FLUSH Nutrition/Malnutrition Assess - Dietary Evaluation Nutrition/Malnutrition Findings: Nutrition Notes Start: 10/10/18 15:44 Freq: Status: Active Protocol: Document 10/10/18 15:44 CORINNE (Rec: 10/10/18 15:51 CORINNE [email or web address]) Nutrition Notes Need for Assessment generated from: MD Order,Education Initial or Follow up Brief Note Current Diagnosis Diabetes Other Pertinent Diagnosis Syncope, hyperglycemia Current Diet Cardiac/Consistent CHO Labs/Tests A1C 10.5 Subjective/Other Information RC consulted for diet education. Pt was admitted with S/S of hyperglycemia. He says his elevated BS is a result of "non-alcoholic diseased kidney". He declines DM diet education information packet at this time as he is familiar with appropriate A1C and food sources of CHO. He checks BS three times daily and is compliant with DM medication. Says his A1C used to be "11.4". #1 Nutrition Diagnosis Altered nutrition-related laboratory values Etiology uncontrolled BS As Evidenced by Signs and Symptoms A1C 10.5 Nutrition Intervention Teaching Recipient Patient Teaching Methods Discussion Response to Teaching Verbalize understanding Education Handouts Provided Discussed impact of sustained hyperglycemia on renal function Barriers to Learning No Barriers Patient aware of follow up options Yes Goal #1 Improved BG control Anticipated Discharge Needs: CHO-controlled diet Revisit per MD consult or patient Sign Off request:
[2018-10-11] MEDS: BENADRYL PO PRN ×2 (12:37→19:50)
[2018-10-11] MEDS: LOVENOX SUB-Q SCH (22:06)
[2018-10-12] MEDS: HumaLOG SUB-Q SCH ×7 (09:00→21:24)
[2018-10-12] MEDS: BENADRYL PO PRN ×2 (09:41→15:24)
[2018-10-12] MEDS: PERCOCET 5/325 PO PRN ×3 (09:41→21:23)
[2018-10-12] MEDS: COLACE PO SCH ×2 (09:41→21:23)
[2018-10-12] MEDS: BABY ASPIRIN PO SCH (09:41)
--- NOTE | 2018-10-12 10:11 | Discharge Summary ---
Providers - Providers Date of Admission: 10/09/18 05:25 Attending physician: ADELE ADDISON MD 10/09/18 05:25 Consult to Dietitian/Nutrition [CONS] Routine Physician Instructions: Reason For Exam: Reason for Consult: Diet education 10/09/18 05:47 Occupational Therapy Evaluate and Treat [CONS] Routine Comment: Reason For Exam: Neuro deficits Physical Therapy Evaluation and Treat [CONS] Routine Comment: Reason For Exam: Neuro deficits 10/09/18 11:59 Consult to Physician [CONS] Routine Comment: Consulting Provider: GENESIS BARNES Physician Instructions: Reason For Exam: sp rotator cuff sx Primary care physician: CORNELL MEDINA Hospitalization Condition: Fair Hospital course: 52-year-old man history of tobacco abuse hypertension and CHF type 2 diabetes, CAD who comes to the hospital complaining of elevated blood sugars. States that he was not able to control them his meds at home. Left shoulder x-ray; within normal limits Carotid Dopplers; no evidence of emergent dynamic significant stenosis CT head; no acute process Diagnoses Type 2 diabetes of persistent hyperglycemia Optimized insulins Presyncope/dehydration Patient and his deny syncope, states that he was dizzy, patient has received IV hydration, CT head normal Hyponatremia Likely due to hyperglycemia, improved with NS, IV fluids CHF; not in exacerbation, keep euvolemic Hypertension, continued BP meds Shoulder pain; had a recent shoulder surgery, orthopedic surgery consult appreciated, shoulder x-ray negative Disposition: DC-01 TO HOME OR SELFCARE Time spent for discharge: 33 mins Core Measure Documentation - Palliative Care Palliative Care/ Comfort Measures: Not Applicable - Core Measures Any of the following diagnoses?: none Exam - Constitutional Vitals: Temp Pulse Resp BP Pulse Ox 98.9 F 73 18 125/63 98 10/12/18 07:41 10/12/18 07:41 10/12/18 07:41 10/12/18 07:41 10/12/18 07:41 General appearance: Present: no acute distress, well-nourished - EENT Eyes: Present: PERRL ENT: hearing intact, clear oral mucosa - Neck Neck: Present: supple, normal ROM - Respiratory Respiratory effort: normal Respiratory: bilateral: CTA - Cardiovascular Heart Sounds: Present: S1 & S2. Absent: rub, click - Extremities Extremities: pulses symmetrical, No edema Peripheral Pulses: within normal limits - Abdominal General gastrointestinal: Present: soft, non-tender, non-distended, normal bowel sounds Male genitourinary: Present: normal - Integumentary Integumentary: Present: clear, warm, dry - Musculoskeletal Musculoskeletal: gait normal, strength equal bilaterally - Psychiatric Psychiatric: appropriate mood/affect, intact judgment & insight - Neurologic Neurologic: CNII-XII intact, moves all extremities Plan Follow up with: CORNELL MEDINA MD [Primary Care Provider] - 3-5 Days Prescriptions: oxyCODONE /ACETAMINOPHEN [Percocet 5/325 mg] 2 tab PO Q6H PRN #20 tablet PRN Reason: Pain , Severe (7-10)
[2018-10-12] MEDS: SODIUM CHLORIDE FLUSH SYRINGE 10 ML IV SCH ×2 (10:41→21:24)
[2018-10-12] MEDS ORDERED: HumaLOG SUB-Q STA (14:09)
[2018-10-12] MEDS ORDERED: LANTUS SUB-Q SCH (18:25)
[2018-10-12] MEDS ORDERED: HumaLOG SUB-Q ONE (19:00)
[2018-10-12] MEDS: LOVENOX SUB-Q SCH (21:22)
[2018-10-13] MEDS: COLACE PO SCH ×2 (10:20→22:20)
[2018-10-13] MEDS: BABY ASPIRIN PO SCH (10:20)
[2018-10-13] MEDS: PERCOCET 5/325 PO PRN ×3 (10:20→22:19)
[2018-10-13] MEDS: HumaLOG SUB-Q SCH ×7 (10:20→22:21)
[2018-10-13] MEDS: SODIUM CHLORIDE FLUSH SYRINGE 10 ML IV SCH ×2 (10:23→22:22)
--- NOTE | 2018-10-13 11:39 | Progress Note ---
Assessment and Plan Assessment and plan: 52-year-old man history of tobacco abuse hypertension and CHF type 2 diabetes, CAD who comes to the hospital complaining of elevated blood sugars. States that he was not able to control them his meds at home. Left shoulder x-ray; within normal limits Carotid Dopplers; no evidence of emergent dynamic significant stenosis CT head; no acute process Diagnoses Type 2 diabetes of persistent hyperglycemia Optimize insulins Presyncope/dehydration Patient and his deny syncope, states that he was dizzy, patient has received IV hydration, CT head normal Hyponatremia Likely due to hyperglycemia, improved with appreciated, shoulder x-ray negative IV fluids CHF; not in exacerbation, keep euvolemic Hypertension, continue BP meds Shoulder pain; had a recent shoulder surgery, orthopedic surgery consult History Interval history: Complains of left shoulder pain which is chronic Review of systems Constitutional: No fevers, no malaise, no joint pains CVS: No chest pain, no orthopnea, no dyspnea on exertion, no pedal edema GI: No abdominal pain, no diarrhea, no vomiting, no constipation Respiratory: no wheezing, no coughing Hospitalist Physical - Physical exam Narrative exam: General.: Appears well, no distress, nontoxic HEENT: Moist mucous membranes, extraocular muscles intact, no lymphadenopathy Neck: supple Cardiac: S1-S2 heard Lungs: clear to auscultation bilaterally Abdomen: soft , nontender, nondistended, bowel sounds positive Extremities: no edema clubbing or cyanosis Skin: no rash or lesions Neurologic: no gross focal deficits Psych: calm, and cooperative - Constitutional Vitals: Temp Pulse Resp BP Pulse Ox 98.0 F 73 16 139/67 98 10/13/18 04:30 10/13/18 04:30 10/13/18 04:30 10/13/18 04:30 10/13/18 04:30 General appearance: Present: no acute distress, well-nourished Results - Labs CBC & Chem 7: 10/10/18 04:36 10/10/18 04:36 Labs: Laboratory Last Values WBC 5.5 K/mm3 (4.5-11.0) 10/10/18 04:36 RBC 4.67 M/mm3 (3.65-5.03) 10/10/18 04:36 Hgb 14.9 gm/dl (11.8-15.2) 10/10/18 04:36 Hct 43.4 % (35.5-45.6) 10/10/18 04:36 MCV 93 fl (84-94) 10/10/18 04:36 MCH 32 pg (28-32) 10/10/18 04:36 MCHC 34 % (32-34) 10/10/18 04:36 RDW 13.6 % (13.2-15.2) 10/10/18 04:36 Plt Count 137 K/mm3 (140-440) L 10/10/18 04:36 Lymph % (Auto) 36.4 % (13.4-35.0) H 10/10/18 04:36 [place] % (Auto) 5.9 % (0.0-7.3) 10/10/18 04:36 Eos % (Auto) 1.6 % (0.0-4.3) 10/10/18 04:36 Baso % (Auto) 0.3 % (0.0-1.8) 10/10/18 04:36 Lymph # 2.0 K/mm3 (1.2-5.4) 10/10/18 04:36 [place] # 0.3 K/mm3 (0.0-0.8) 10/10/18 04:36 Eos # 0.1 K/mm3 (0.0-0.4) 10/10/18 04:36 Baso # 0.0 K/mm3 (0.0-0.1) 10/10/18 04:36 Seg Neutrophils % 55.8 % (40.0-70.0) 10/10/18 04:36 Seg Neutrophils # 3.1 K/mm3 (1.8-7.7) 10/10/18 04:36 285.66 ng/mlDDU (0-234) H 10/09/18 07:14 VBG pH 7.340 (7.320-7.420) 10/09/18 01:35 Sodium 129 mmol/L (137-145) L 10/10/18 04:36 Potassium 3.8 mmol/L (3.6-5.0) 10/10/18 04:36 Chloride 94.8 mmol/L (98-107) L 10/10/18 04:36 Carbon Dioxide 21 mmol/L (22-30) L D 10/10/18 04:36 17 mmol/L 10/10/18 04:36 BUN 10 mg/dL (9-20) 10/10/18 04:36 0.8 mg/dL (0.8-1.5) 10/10/18 04:36 Estimated GFR > 60 ml/min 10/10/18 04:36 13 % 10/10/18 04:36 Glucose 420 mg/dL (75-100) H 10/10/18 04:36 POC Glucose 283 (70-105) H 10/13/18 07:47 10.5 % (4-6) H 10/09/18 05:45 Calcium 7.8 mg/dL (8.4-10.2) L D 10/10/18 04:36 0.30 mg/dL (0.1-1.2) 10/09/18 00:50 AST 22 units/L (5-40) 10/09/18 00:50 ALT 28 units/L (7-56) 10/09/18 00:50 145 units/L (35-129) H 10/09/18 00:50 < 0.010 ng/mL (0.00-0.029) 10/09/18 00:50 7.4 g/dL (6.3-8.2) 10/09/18 00:50 4.1 g/dL (3.9-5) 10/09/18 00:50 1.2 % 10/09/18 00:50 Triglycerides 852 mg/dL (2-149) H 10/10/18 04:36 Cholesterol 187 mg/dL (50-199) 10/10/18 04:36 TNR 10/10/18 04:36 28 mg/dL (40-59) L 10/10/18 04:36 6.67 % 10/10/18 04:36 Colorless (Yellow) 10/09/18 00:25 Clear (Clear) 10/09/18 00:25 8.0 (5.0-7.0) H 10/09/18 00:25 Ur Specific [place] 1.027 (1.003-1.030) 10/09/18 00:25 <15 mg/dl mg/dL (Negative) 10/09/18 00:25 >=500 mg/dL (Negative) 10/09/18 00:25 Neg mg/dL (Negative) 10/09/18 00:25 Neg (Negative) 10/09/18 00:25 Neg (Negative) 10/09/18 00:25 Neg (Negative) 10/09/18 00:25 < 2.0 mg/dL (<2.0) 10/09/18 00:25 Ur Leukocyte Esterase Neg (Negative) 10/09/18 00:25 < 1.0 /HPF (0.0-6.0) 10/09/18 00:25 1.0 /HPF (0.0-6.0) 10/09/18 00:25 Active Medications - Current Medications Current Medications: Generic Name Dose Route Start Last Admin Trade Name Freq PRN Reason Stop Dose Admin Acetaminophen 650 mg 10/09/18 05:25 Tylenol PO Q4H PRN Pain MILD(1-3)/Fever >100.5/GARCIA Aspirin 81 mg 10/09/18 10:00 10/13/18 10:20 Baby Aspirin PO 81 mg QDAY YENY Administration Atorvastatin Calcium 40 mg 10/09/18 22:00 10/12/18 21:23 Lipitor PO 40 mg QHS YENY Administration Dextrose 50 ml 10/09/18 05:25 D50w (25gm) Syringe IV PRN PRN Hypoglycemia Diphenhydramine HCl 25 mg 10/11/18 09:25 10/12/18 15:24 Benadryl PO 25 mg Q6H PRN Administration Itching Docusate Sodium 100 mg 10/09/18 10:00 10/13/18 10:20 Colace PO 100 mg BID YENY Administration Enoxaparin Sodium 40 mg 10/09/18 22:00 10/12/18 21:22 Lovenox SUB-Q 40 mg QDAY@2200 YENY Administration Insulin Glargine 50 units 10/12/18 18:25 10/12/18 22:22 Lantus SUB-Q 50 units QHS YENY Administration Insulin Human Lispro 0 unit 10/11/18 22:00 10/13/18 10:21 Humalog SUB-Q 6 unit ACHS YENY Administration Protocol Insulin Human Lispro 20 unit 10/12/18 18:25 10/13/18 10:20 Humalog SUB-Q 20 unit AC YENY Administration Ondansetron HCl 4 mg 10/09/18 05:25 Zofran IV Q8H PRN Nausea And Vomiting Oxycodone/Acetaminophen 2 tab 10/10/18 19:55 10/13/18 10:20 Percocet 5/325 PO 2 tab Q6H PRN Administration Pain , Severe (7-10) Sodium Chloride 10 ml 10/09/18 10:00 10/13/18 10:23 Sodium Chloride Flush Syringe 10 Ml IV 10 ml BID YENY Administration Sodium Chloride 10 ml 10/09/18 05:25 Sodium Chloride Flush Syringe 10 Ml IV PRN PRN LINE FLUSH Nutrition/Malnutrition Assess - Dietary Evaluation Nutrition/Malnutrition Findings: Nutrition Notes Start: 10/10/18 15:44 Freq: Status: Active Protocol: Document 10/10/18 15:44 CORINNE (Rec: 10/10/18 15:51 CORINNE [email or web address]) Nutrition Notes Need for Assessment generated from: MD Order,Education Initial or Follow up Brief Note Current Diagnosis Diabetes Other Pertinent Diagnosis Syncope, hyperglycemia Current Diet Cardiac/Consistent CHO Labs/Tests A1C 10.5 Subjective/Other Information RC consulted for diet education. Pt was admitted with S/S of hyperglycemia. He says his elevated BS is a result of "non-alcoholic diseased kidney". He declines DM diet education information packet at this time as he is familiar with appropriate A1C and food sources of CHO. He checks BS three times daily and is compliant with DM medication. Says his A1C used to be "11.4". #1 Nutrition Diagnosis Altered nutrition-related laboratory values Etiology uncontrolled BS As Evidenced by Signs and Symptoms A1C 10.5 Nutrition Intervention Teaching Recipient Patient Teaching Methods Discussion Response to Teaching Verbalize understanding Education Handouts Provided Discussed impact of sustained hyperglycemia on renal function Barriers to Learning No Barriers Patient aware of follow up options Yes Goal #1 Improved BG control Anticipated Discharge Needs: CHO-controlled diet Revisit per MD consult or patient Sign Off request:
[2018-10-13] MEDS ORDERED: HumaLOG SUB-Q ONE (13:52)
[2018-10-13] MEDS ORDERED: LANTUS SUB-Q ONE (13:56)
[2018-10-13] MEDS: GLUCOPHAGE PO SCH (16:01)
[2018-10-13] MEDS: LANTUS SUB-Q SCH (16:05)
[2018-10-13] MEDS: LOVENOX SUB-Q SCH (22:19)
[2018-10-14] MEDS: HumaLOG SUB-Q SCH ×4 (08:03→12:26)
[2018-10-14] MEDS: LANTUS SUB-Q SCH (08:11)
--- NOTE | 2018-10-14 11:35 | Progress Note ---
Assessment and Plan Assessment and plan: 52-year-old man history of tobacco abuse hypertension and CHF type 2 diabetes, CAD who comes to the hospital complaining of elevated blood sugars. States that he was not able to control them his meds at home. Left shoulder x-ray; within normal limits Carotid Dopplers; no evidence of emergent dynamic significant stenosis CT head; no acute process Diagnoses Type 2 diabetes of persistent hyperglycemia Optimize insulins Presyncope/dehydration Patient and his deny syncope, states that he was dizzy, patient has received IV hydration, CT head normal Hyponatremia Likely due to hyperglycemia, improved with appreciated, shoulder x-ray negative IV fluids CHF; not in exacerbation, keep euvolemic Hypertension, continue BP meds Shoulder pain; had a recent shoulder surgery, orthopedic surgery consult History Interval history: Complains of left shoulder pain which is chronic Review of systems Constitutional: No fevers, no malaise, no joint pains CVS: No chest pain, no orthopnea, no dyspnea on exertion, no pedal edema GI: No abdominal pain, no diarrhea, no vomiting, no constipation Respiratory: no wheezing, no coughing Hospitalist Physical - Physical exam Narrative exam: General.: Appears well, no distress, nontoxic HEENT: Moist mucous membranes, extraocular muscles intact, no lymphadenopathy Neck: supple Cardiac: S1-S2 heard Lungs: clear to auscultation bilaterally Abdomen: soft , nontender, nondistended, bowel sounds positive Extremities: no edema clubbing or cyanosis Skin: no rash or lesions Neurologic: no gross focal deficits Psych: calm, and cooperative - Constitutional Vitals: Temp Pulse Resp BP Pulse Ox 98.5 F 78 19 118/59 95 10/14/18 07:39 10/14/18 07:48 10/14/18 07:39 10/14/18 07:39 10/14/18 04:26 General appearance: Present: no acute distress, well-nourished Results - Labs CBC & Chem 7: 10/10/18 04:36 10/10/18 04:36 Labs: Laboratory Last Values WBC 5.5 K/mm3 (4.5-11.0) 10/10/18 04:36 RBC 4.67 M/mm3 (3.65-5.03) 10/10/18 04:36 Hgb 14.9 gm/dl (11.8-15.2) 10/10/18 04:36 Hct 43.4 % (35.5-45.6) 10/10/18 04:36 MCV 93 fl (84-94) 10/10/18 04:36 MCH 32 pg (28-32) 10/10/18 04:36 MCHC 34 % (32-34) 10/10/18 04:36 RDW 13.6 % (13.2-15.2) 10/10/18 04:36 Plt Count 137 K/mm3 (140-440) L 10/10/18 04:36 Lymph % (Auto) 36.4 % (13.4-35.0) H 10/10/18 04:36 [place] % (Auto) 5.9 % (0.0-7.3) 10/10/18 04:36 Eos % (Auto) 1.6 % (0.0-4.3) 10/10/18 04:36 Baso % (Auto) 0.3 % (0.0-1.8) 10/10/18 04:36 Lymph # 2.0 K/mm3 (1.2-5.4) 10/10/18 04:36 [place] # 0.3 K/mm3 (0.0-0.8) 10/10/18 04:36 Eos # 0.1 K/mm3 (0.0-0.4) 10/10/18 04:36 Baso # 0.0 K/mm3 (0.0-0.1) 10/10/18 04:36 Seg Neutrophils % 55.8 % (40.0-70.0) 10/10/18 04:36 Seg Neutrophils # 3.1 K/mm3 (1.8-7.7) 10/10/18 04:36 285.66 ng/mlDDU (0-234) H 10/09/18 07:14 VBG pH 7.340 (7.320-7.420) 10/09/18 01:35 Sodium 129 mmol/L (137-145) L 10/10/18 04:36 Potassium 3.8 mmol/L (3.6-5.0) 10/10/18 04:36 Chloride 94.8 mmol/L (98-107) L 10/10/18 04:36 Carbon Dioxide 21 mmol/L (22-30) L D 10/10/18 04:36 17 mmol/L 10/10/18 04:36 BUN 10 mg/dL (9-20) 10/10/18 04:36 0.8 mg/dL (0.8-1.5) 10/10/18 04:36 Estimated GFR > 60 ml/min 10/10/18 04:36 13 % 10/10/18 04:36 Glucose 420 mg/dL (75-100) H 10/10/18 04:36 POC Glucose 203 (70-105) H 10/14/18 11:22 10.5 % (4-6) H 10/09/18 05:45 Calcium 7.8 mg/dL (8.4-10.2) L D 10/10/18 04:36 0.30 mg/dL (0.1-1.2) 10/09/18 00:50 AST 22 units/L (5-40) 10/09/18 00:50 ALT 28 units/L (7-56) 10/09/18 00:50 145 units/L (35-129) H 10/09/18 00:50 < 0.010 ng/mL (0.00-0.029) 10/09/18 00:50 7.4 g/dL (6.3-8.2) 10/09/18 00:50 4.1 g/dL (3.9-5) 10/09/18 00:50 1.2 % 10/09/18 00:50 Triglycerides 852 mg/dL (2-149) H 10/10/18 04:36 Cholesterol 187 mg/dL (50-199) 10/10/18 04:36 TNR 10/10/18 04:36 28 mg/dL (40-59) L 10/10/18 04:36 6.67 % 10/10/18 04:36 Colorless (Yellow) 10/09/18 00:25 Clear (Clear) 10/09/18 00:25 8.0 (5.0-7.0) H 10/09/18 00:25 Ur Specific [place] 1.027 (1.003-1.030) 10/09/18 00:25 <15 mg/dl mg/dL (Negative) 10/09/18 00:25 >=500 mg/dL (Negative) 10/09/18 00:25 Neg mg/dL (Negative) 10/09/18 00:25 Neg (Negative) 10/09/18 00:25 Neg (Negative) 10/09/18 00:25 Neg (Negative) 10/09/18 00:25 < 2.0 mg/dL (<2.0) 10/09/18 00:25 Ur Leukocyte Esterase Neg (Negative) 10/09/18 00:25 < 1.0 /HPF (0.0-6.0) 10/09/18 00:25 1.0 /HPF (0.0-6.0) 10/09/18 00:25 Active Medications - Current Medications Current Medications: Generic Name Dose Route Start Last Admin Trade Name Freq PRN Reason Stop Dose Admin Acetaminophen 650 mg 10/09/18 05:25 Tylenol PO Q4H PRN Pain MILD(1-3)/Fever >100.5/GARCIA Aspirin 81 mg 10/09/18 10:00 10/13/18 10:20 Baby Aspirin PO 81 mg QDAY YENY Administration Atorvastatin Calcium 40 mg 10/09/18 22:00 10/13/18 22:19 Lipitor PO 40 mg QHS YENY Administration Dextrose 50 ml 10/09/18 05:25 D50w (25gm) Syringe IV PRN PRN Hypoglycemia Diphenhydramine HCl 25 mg 10/11/18 09:25 10/12/18 15:24 Benadryl PO 25 mg Q6H PRN Administration Itching Docusate Sodium 100 mg 10/09/18 10:00 10/13/18 22:20 Colace PO 100 mg BID YENY Administration Enoxaparin Sodium 40 mg 10/09/18 22:00 10/13/18 22:19 Lovenox SUB-Q 40 mg QDAY@2200 YENY Administration Insulin Glargine 35 units 10/13/18 17:00 10/14/18 08:11 Lantus SUB-Q 35 units BIDDIAB YENY Administration Insulin Human Lispro 0 unit 10/11/18 22:00 10/14/18 08:03 Humalog SUB-Q 10 unit ACHS YENY Administration Protocol Insulin Human Lispro 25 unit 10/13/18 16:30 10/14/18 08:11 Humalog SUB-Q 25 unit AC YENY Administration Metformin HCl 1,000 mg 10/13/18 17:00 10/13/18 16:01 Glucophage PO 1,000 mg BIDDIAB YENY Administration Ondansetron HCl 4 mg 10/09/18 05:25 Zofran IV Q8H PRN Nausea And Vomiting Oxycodone/Acetaminophen 2 tab 10/10/18 19:55 10/13/18 22:19 Percocet 5/325 PO 2 tab Q6H PRN Administration Pain , Severe (7-10) Sodium Chloride 10 ml 10/09/18 10:00 10/13/18 22:22 Sodium Chloride Flush Syringe 10 Ml IV 10 ml BID YENY Administration Sodium Chloride 10 ml 10/09/18 05:25 Sodium Chloride Flush Syringe 10 Ml IV PRN PRN LINE FLUSH Nutrition/Malnutrition Assess - Dietary Evaluation Nutrition/Malnutrition Findings: Nutrition Notes Start: 10/10/18 15:44 Freq: Status: Active Protocol: Document 10/10/18 15:44 CORINNE (Rec: 10/10/18 15:51 CORINNE [email or web address]) Nutrition Notes Need for Assessment generated from: MD Order,Education Initial or Follow up Brief Note Current Diagnosis Diabetes Other Pertinent Diagnosis Syncope, hyperglycemia Current Diet Cardiac/Consistent CHO Labs/Tests A1C 10.5 Subjective/Other Information RC consulted for diet education. Pt was admitted with S/S of hyperglycemia. He says his elevated BS is a result of "non-alcoholic diseased kidney". He declines DM diet education information packet at this time as he is familiar with appropriate A1C and food sources of CHO. He checks BS three times daily and is compliant with DM medication. Says his A1C used to be "11.4". #1 Nutrition Diagnosis Altered nutrition-related laboratory values Etiology uncontrolled BS As Evidenced by Signs and Symptoms A1C 10.5 Nutrition Intervention Teaching Recipient Patient Teaching Methods Discussion Response to Teaching Verbalize understanding Education Handouts Provided Discussed impact of sustained hyperglycemia on renal function Barriers to Learning No Barriers Patient aware of follow up options Yes Goal #1 Improved BG control Anticipated Discharge Needs: CHO-controlled diet Revisit per MD consult or patient Sign Off request:
[2018-10-14 11:51] VITALS: BP 115/68
[2018-10-14] MEDS: GLUCOPHAGE PO SCH (12:26)
[2018-10-14] MEDS: SODIUM CHLORIDE FLUSH SYRINGE 10 ML IV SCH (12:27)
[2018-10-14] MEDS: COLACE PO SCH (12:27)
[2018-10-14] MEDS: BABY ASPIRIN PO SCH (12:27)
[2018-10-14] MEDS ORDERED: HumaLOG SUB-Q SCH (16:30)
== END 2018-10-14 15:30 | disposition home or self-care (01) | DRG 638 ==
LOC: SUATTDRO 00:10 → ED 00:10 → 4A 05:25
PROVIDERS: ADMIT Internal Medicine; ATTEND Internal Medicine
DX: E11.65 Type 2 diabetes mellitus with hyperglycemia (principal); E87.1 Hypo-osmolality and hyponatremia; R55 Syncope and collapse; I50.9 Heart failure, unspecified; M19.90 Unspecified osteoarthritis, unspecified site; F17.210 Nicotine dependence, cigarettes, uncomplicated; I11.0 Hypertensive heart disease with heart failure; I25.10 Atherosclerotic heart disease of native coronary artery without angina pectoris; Z88.5 Allergy status to narcotic agent; Z79.4 Long term (current) use of insulin; Z79.899 Other long term (current) drug therapy
CPT/HCPCS: 36415; 70450; 80048; 80053; 80061; 81001; 82805; 82947; 82962; 83036; 84484; 85025; 85379; 90686; 93005; 93010; 93306; 93880; 96361; 96372; 96374; 96375; 99406; G0378; A9270-GY; J1650; J1815; J2405; J3010; J7030

== ENCOUNTER 2018-11-08 20:13 | Inpatient (IN) | payer BC ==
--- NOTE | 2018-11-08 21:12 | Emergency Department Report ---
Blank Doc - Documentation Documentation: This is a 53-year-old male that presents with syncope with blurry vision and v isual changes. This initial assessment/diagnostic orders/clinical plan/treatment(s) is/are subject to change based on patient's health status, clinical progression and re- assessment by fellow clinical providers in the ED. Further treatment and workup at subsequent clinical providers discretion. Patient/guardians urged not to elope from the ED as their condition may be serious if not clinically assessed and managed. Initial orders include: 1- Patient sent to MAIN ED for further evaluation and treatment 2- labs 3- EKG 4- UA
[2018-11-08 21:43] LABS: Basophils % (Auto) 0.5 % (0.0-1.8); Eosinophils % (Auto) 0.4 % (0.0-4.3); Hematocrit 46.7 % (35.5-45.6); Lymphocytes # (Auto) 1.2 K/mm3 (1.2-5.4); Lymphocytes % (Auto) 20.9 % (13.4-35.0); Mean Corpuscular HGB Conc 34 % (32-34); Mean Corpuscular Volume 93 fl (84-94); Monocytes # (Auto) 0.4 K/mm3 (0.0-0.8); Monocytes % (Auto) 6.7 % (0.0-7.3); Platelet Count 132 K/mm3 (140-440); Red Blood Count 5.04 M/mm3 (3.65-5.03); Red Cell Distribution Width 13.5 % (13.2-15.2)
[2018-11-08 21:53] LABS: INR 1.12 (0.87-1.13)
[2018-11-08 21:54] LABS: Partial Thromboplastin Time 24.5 Sec. (24.2-36.6)
[2018-11-08 22:07] LABS: Creatine Kinase MB 1.7 ng/mL (0.0-4.0)
[2018-11-08 22:09] LABS: Alanine Aminotransferase 36 units/L (7-56); Albumin 4.1 g/dL (3.9-5); BUN/Creatinine Ratio 11; Blood Urea Nitrogen 11 mg/dL (9-20); Hemolysis Index 32
--- NOTE | 2018-11-08 22:46 | XRay Report ---
CHEST 2 VIEWS INDICATION: Syncope. COMPARISON: None. FINDINGS: Support devices: None. Heart: Within normal limits. Lungs/Pleura: No acute air space or interstitial disease. No significant pleural effusion. IMPRESSION: No acute findings. Signer Name: Noam Santo MD Signed: 11/08/2018 10:41 PM Workstation Name: [id number]
--- NOTE | 2018-11-08 22:51 | Cat Scan Report ---
CT head/brain wo con INDICATION: Syncope. TECHNIQUE: All CT scans at this location are performed using the following dose modulation technique: Automated exposure control. CONTRAST: None. COMPARISON: None available. FINDINGS: The ventricular system is appropriate in size and configuration without midline shift. Nega tive for mass, stroke or hemorrhage. Imaged portions of the paranasal sinuses are clear. IMPRESSION: Negative CT brain without contrast. Signer Name: Noam Santo MD Signed: 11/08/2018 10:46 PM Workstation Name: [id number]
[2018-11-08] MEDS ORDERED: NACL 0.9% 1000 ML 1,000 ML IV ONE (22:58)
[2018-11-08] MEDS ORDERED: HumuLIN R IV ONE (22:58)
[2018-11-08] MEDS ORDERED: PERCOCET 5/325 PO ONE (23:28)
--- NOTE | 2018-11-08 23:59 | Emergency Department Report ---
ED Syncope HPI - General Chief Complaint: Syncope Stated Complaint: BLURRED VISION, COGESTIVE HEART FAILURE Time Seen by Provider: 11/08/18 21:11 - History of Present Illness Initial Comments: 53-year-old male, history of CHF and diabetes, presents to ED following a syncopal episode home. Patient reports feeling chest tightness, shortness of breath to passing out. Reports only mild chest tightness at this time and denies any shortness of breath currently. Patient reports that he underwent a left rotator cuff surgery approximately one month ago, and has been experiencing pain in the left shoulder since his last physical therapy session in 1 week ago. Patient is unsure if he passed out due to the pain in his shoulder. Surgery performed by Dr Vee Timing/Prior Episodes: no prior history Precipitating Factors: Positive: lightheadedness Loss of Consciousness: brief (seconds) Current Symptoms: chest pain, dizziness - Related Data Allergies/Adverse Reactions: Allergies codeine Allergy (Verified 09/13/18 16:17) Hives Home Medications: Ambulatory Orders traZODone [Desyrel] 100 mg PO QHS 10/09/18 AtorvaSTATin [Lipitor] 40 mg PO QHS #30 tablet 10/12/18 diphenhydrAMINE [Benadryl CAP] 25 mg PO Q6H PRN #30 capsule 10/12/18 oxyCODONE /ACETAMINOPHEN [Percocet 5/325 mg] 2 tab PO Q6H PRN #20 tablet 10/12/18 Insulin Lispro 30 unit SQ AC 30 Days vial 10/13/18 metFORMIN [Glucophage] 1,000 mg PO BID 30 Days tablet 10/13/18 Insulin Glargine [Lantus VIAL] 40 units SUB-Q BIDDIAB 30 Days units 10/14/18 ED Review of Systems ROS: Stated complaint: BLURRED VISION, COGESTIVE HEART FAILURE Other details as noted in HPI Comment: All other systems reviewed and negative Constitutional: denies: chills, fever Respiratory: shortness of breath Cardiovascular: chest pain Gastrointestinal: denies: abdominal pain, nausea, vomiting, diarrhea Musculoskeletal: as per HPI Neurological: denies: headache ED Past Medical Hx - Past Medical History Previous Medical History?: Yes Hx Hypertension: Yes Hx Heart Attack/AMI: No Hx Congestive Heart Failure: Yes Hx Diabetes: Yes Hx Liver Disease: No Hx Renal Disease: No Hx Arthritis: Yes Hx HIV: No - Surgical History Past Surgical History?: Yes Additional Surgical History: Hernia repair , Left rotator Cuff - Social History Smoking Status: Former Smoker Substance Use Type: None - Medications Home Medications: Home Medications Medication Instructions Recorded Confirmed Last Taken Type traZODone [Desyrel] 100 mg PO QHS 10/09/18 10/09/18 Unknown History AtorvaSTATin [Lipitor] 40 mg PO QHS #30 tablet 10/12/18 Unknown Rx diphenhydrAMINE [Benadryl CAP] 25 mg PO Q6H PRN #30 capsule 10/12/18 Unknown Rx oxyCODONE /ACETAMINOPHEN [Percocet 2 tab PO Q6H PRN #20 tablet 10/12/18 Unknown Rx 5/325 mg] Insulin Lispro 30 unit SQ AC 30 Days vial 10/13/18 Unknown Rx metFORMIN [Glucophage] 1,000 mg PO BID 30 Days tablet 10/13/18 Unknown Rx Insulin Glargine [Lantus VIAL] 40 units SUB-Q BIDDIAB 30 Days 10/14/18 Unknown Rx units ED Physical Exam - General Limitations: No Limitations General appearance: alert, in no apparent distress - Head Head exam: Present: atraumatic, normocephalic - Eye Eye exam: Present: normal appearance, PERRL, EOMI - ENT ENT exam: Present: mucous membranes moist - Neck Neck exam: Present: normal inspection - Respiratory Respiratory exam: Present: normal lung sounds bilaterally. Absent: respiratory distress - Cardiovascular Cardiovascular Exam: Present: regular rate, normal rhythm - GI/Abdominal GI/Abdominal exam: Present: soft. Absent: distended, tenderness - Extremities Exam Extremities exam: Present: normal inspection - Neurological Exam Neurological exam: Present: alert, oriented X3, CN II-XII intact. Absent: motor sensory deficit - Psychiatric Psychiatric exam: Present: normal affect, normal mood - Skin Skin exam: Present: warm, dry, intact, normal color. Absent: rash ED Course Vital Signs 11/08/18 11/08/18 11/08/18 21:12 22:39 23:19 Temperature 97.7 F 98 F Pulse Rate 90 74 Pulse Rate [ 72 Lying] Respiratory 20 16 Rate Blood Pressure 122/63 Blood Pressure 123/66 [Lying] Blood Pressure 120/56 [Right] O2 Sat by Pulse 96 98 Oximetry 11/08/18 23:34 Temperature Pulse Rate Pulse Rate [ Lying] Respiratory 16 Rate Blood Pressure Blood Pressure [Lying] Blood Pressure [Right] O2 Sat by Pulse Oximetry ED Medical Decision Making - Lab Data Result diagrams: 11/08/18 21:28 11/08/18 21:28 - EKG Data -: EKG Interpreted by Me EKG shows normal: sinus rhythm, axis, intervals, QRS complexes, ST-T waves Rate: normal - EKG Data Interpretation: no acute changes - Radiology Data Radiology results: report reviewed, image reviewed - Medical Decision Making - 53 yo M w/ syncopal episode - reports associated brief chest pain, SOB, now resolved - EKG and troponin normal - vitals normal, slightly orthostatic - hyperglycemic, however, not in DKA - D-dimer elevated; CT is broken so unable to perform CTA; unable to obtain V/Q scan b/c ran out of radioisotope; therefore, discussed with Dr Carlisle, hospitalist and will administer lovenox in case of PE - I believe low likelihood of PE as pt is not tachypneic, not tachycardic, not hypoxic - will admit for further management - Differential Diagnosis ACS, orthostatic syncope, PE Critical care attestation.: If time is entered above; I have spent that time in minutes in the direct care of this critically ill patient, excluding procedure time. ED Disposition Clinical Impression: Syncope, Acute chest pain, Hyperglycemia Disposition: OP ADMIT IP TO THIS HOSP Is pt being admited?: Yes Condition: Stable Instructions: Chest Pain (ED), Syncope (ED) Referrals: LIBRADO FOWLER MD [Primary Care Provider] - 3-5 Days Time of Disposition: 00:00
[2018-11-09] MEDS ORDERED: LOVENOX SUB-Q ONE (01:21)
[2018-11-09] MEDS ORDERED: ZOFRAN IV PRN (03:29)
[2018-11-09] MEDS ORDERED: HEPARIN SUB-Q SCH (03:30)
[2018-11-09] MEDS ORDERED: TYLENOL PO PRN (03:30)
[2018-11-09] MEDS ORDERED: NITROSTAT SL PRN (03:30)
[2018-11-09] MEDS ORDERED: D50W (25GM) Syringe IV PRN (03:34)
[2018-11-09] MEDS: HumuLIN R SUB-Q SCH ×5 (03:48→22:16)
--- NOTE | 2018-11-09 04:35 | History and Physical Report ---
CHIEF COMPLAINT: Syncopal attack. Other complaint includes chest pain, dizziness, shortness of breath. HISTORY OF PRESENT ILLNESS: The patient is a 53-year-old male who states he nearly passed out at home, but did not pass out completely and then was having tightness in the chest associated with shortness of breath. There was also history of blurry vision and the patient said he underwent surgery for left rotator cuff repair about 1 month ago and ever since then has been experiencing pain in the left shoulder since his last physical therapy about 1 week ago. The patient says he is not sure whether the chest pain is due to pain in the left shoulder and also he was not sure whether he had the near syncope because of the pain in his left shoulder. There was no history of cough, no history of fever, nausea or vomiting when the patient was seen in the Emergency Room. PAST MEDICAL HISTORY: Pertinent for hypertension, congestive heart failure, diabetes mellitus, arthritis. PAST SURGICAL HISTORY: Pertinent for hernia repair and left rotator cuff surgery recently. FAMILY HISTORY: Family history was reviewed and noncontributory. SOCIAL HISTORY: The patient is a former cigarette smoker. Does not smoke currently, does not use illicit drug. MEDICATIONS: The patient is on trazodone 100 mg by mouth at bedtime, Lipitor 40 mg by mouth at bedtime, Benadryl 25 mg by mouth every 6 hours, Percocet 5/325 two tablets by mouth every 6 hours, insulin Lispro 30 units subcutaneously a.c., metformin 1000 mg by mouth twice daily, Lantus insulin 40 units subcutaneously daily. ALLERGIES: THE PATIENT IS ALLERGIC TO CODEINE. REVIEW OF SYSTEMS: CONSTITUTIONAL: There is no fever, no chills, no diaphoresis. HEENT: There is no headache or sore throat. CARDIOVASCULAR SYSTEM: Chest pain is present. No orthopnea. RESPIRATORY SYSTEM: Shortness of breath is present. No cough. GASTROINTESTINAL SYSTEM: There is no nausea, no vomiting, no abdominal pain, diarrhea or constipation. NEUROLOGICAL SYSTEM: Blurring of vision noted, near syncopal feeling noted, dizziness noted. No change in mental status. MUSCULOSKELETAL SYSTEM: Pain in the left shoulder area where the patient has surgery noted. No joint swelling. DERMATOLOGICAL SYSTEM: There is no skin rash or itching. GENITOURINARY SYSTEM: There is no dysuria, hematuria or flank pain. Rest of system review is normal. PHYSICAL EXAMINATION: GENERAL: At the time of exam, the patient was found to be alert, oriented x 3 and not in acute distress. VITAL SIGNS: Shows temperature of 97.7 degrees Fahrenheit, pulse of 90, respirations 20, blood pressure 122/63, O2 sat of 96% on room air. HEENT: Showed pupils to be equal, round, reactive to light and accommodating. Extraocular muscles are intact. NECK: Supple with no JVD or carotid bruit. CARDIOVASCULAR SYSTEM: Showed normal first and second heart sounds with no gallops or murmurs. RESPIRATORY SYSTEM: Show good air entry on both sides of the lungs with no abnormal breath sounds. GASTROINTESTINAL SYSTEM: Show abdomen to be full, soft, nontender with no organomegaly or rigidity. NEUROLOGICAL: Shows no focal deficit. MUSCULOSKELETAL SYSTEM: Shows tenderness in the left shoulder area where the patient has surgery recently. There is no joint swelling. DERMATOLOGICAL SYSTEM: Show no skin rash. GENITOURINARY SYSTEM: Show no costovertebral angle tenderness. PERTINENT LABORATORY DATA AND IMAGING STUDIES: The patient has chest x-ray done that shows no acute findings. The patient had also CT of the head without contrast done that shows negative CT of the brain. Lab results, the patient's CBC showed normal white, high hemoglobin of 16 and high hematocrit of 46.7 with normal MCV and CBC differential shows slightly elevated segmented neutrophil count of 71.5. The patient's coagulation studies show elevated D-dimer of 360. The patient's chemistry shows slightly low sodium level of 132 with low chloride of 95.8, elevated blood glucose of 644 with normal CO2 of 26 and anion gap of 11. The patient's blood glucose level has come down to 294 with treatment. Rest of chemistry was unremarkable. The patient's troponin level and other cardiac enzymes came back normal. DIAGNOSES: 1. Chest pain. 2. Near syncope. 3. Diabetes mellitus with hyperglycemia. PLAN OF CARE: 1. The patient will be admitted to telemetry. 2. The patient will have cardiac enzymes involving troponin, total CK and CK-MB checks serially every 6 hours x 2 more levels. 3. The patient will remain n.p.o. and will have Lexiscan stress test this morning. 4. The patient will have Accu-Chek every 4 hours followed by sliding scale, using low dose regular insulin coverage. 5. The patient will be on Tylenol 650 mg by mouth every 4 hours for fever and headache. 6. The patient will be on aspirin 325 mg by mouth daily and will be on Lovenox 40 mg subcutaneously daily for DVT prophylaxis. 7. The patient will be on IV morphine 2 mg every 3 hours. The patient monitored because of history of ALLERGY TO CODEINE. 8. The patient will be on nitro paste 1/2 inch to anterior chest wall q.i.d. and will be on Nitrostat 0.4 mg sublingual every 5 minutes as needed for chest pain. 9. The patient will be on IV Zofran 4 mg every 8 hours as needed for nausea and vomiting. 10. The patient will be on oxygen by nasal cannula 2 liters per minute. JOB# [id number] [facility]/PRITESH MURPHY
[2018-11-09] MEDS: NITRO-BID 2% TP SCH ×5 (05:48→19:08)
[2018-11-09] MEDS: MORPHINE IV PRN ×4 (05:51→22:16)
[2018-11-09 06:35] LABS: Creatine Kinase MB 1.4 ng/mL (0.0-4.0)
[2018-11-09] MEDS ORDERED: LEXISCAN IV ONE ×2 (07:20→07:33)
[2018-11-09] MEDS: ASPIRIN PO SCH (10:50)
[2018-11-09 12:56] LABS: Creatine Kinase MB 1.7 ng/mL (0.0-4.0)
--- NOTE | 2018-11-09 13:29 | Event Note ---
Date: 11/09/18 Patient [age] with a history of congestive heart failure, diabetes mellitus recent left rotator cuff surgery presents with near syncopal episode at home. Patient related that prior to this he has some chest and arm tightness. Patient was brought in for cardiac evaluation of syncope. Patient has been ruled out by cardiac isoenzymes. Troponins negative EKG normal. Stress test today. At this time unlikely to be cardiac in origin. Think is most likely secondary to rotator cuff pain. #1 syncope most likely secondary to rotator cuff pain. Ruled out for PE stress test pending. Did have some degree of orthostatic hypotension resolved with IV volume hydration. CT scan head negative. Patient's blood sugar remains uncontrolled. Patient's been noncompliant does not have primary care physician. We'll treat with sliding-scale insulin for now.
[2018-11-09] MEDS: LOVENOX SUB-Q SCH (22:16)
--- NOTE | 2018-11-10 00:19 | Treadmill Report ---
THALLIUM STRESS TEST LEFT VENTRICLE: Left ventricular chamber size is within normal spread. Perfusion study demonstrates a small fixed basal inferior defect, of mild intensity. No significant reversibility is noted. Gated analysis demonstrates normal left ventricular systolic function, ejection fraction 62%. CONCLUSION: Small basal inferior defect of mild intensity, likely diaphragmatic attenuation artifact. There is no reversible ischemia demonstrated on this study. Negative study. Clinical correlation is recommended. JOB# [id number] CA/NTS
[2018-11-10] MEDS: MORPHINE IV PRN ×6 (03:00→22:47)
[2018-11-10] MEDS: HumuLIN R SUB-Q SCH ×6 (03:00→22:48)
[2018-11-10] MEDS: NITRO-BID 2% TP SCH ×4 (05:59→18:47)
--- NOTE | 2018-11-10 08:16 | Progress Note ---
Assessment and Plan Assessment and plan: Syncope. Stress test was found be negative. CT scan of the head negative. Follow-up echocardiogram and carotid Dopplers. Etiology likely secondary to orthostatic hypotension. Congestive heart failure. Compensated. Diabetes mellitus type 2. Continue Accucheks and sliding scale insulin. Recent left rotator cuff surgery. Continue pain control. History Interval history: Patient still reports some dizziness with standing. Hospitalist Physical - Constitutional Vitals: Temp Pulse Resp BP Pulse Ox 98.0 F 67 18 117/53 96 11/10/18 04:22 11/10/18 04:22 11/10/18 04:22 11/10/18 04:22 11/10/18 04:22 General appearance: Present: no acute distress, well-nourished - EENT Eyes: Present: PERRL, EOM intact ENT: hearing intact, clear oral mucosa, dentition normal - Neck Neck: Present: supple, normal ROM - Respiratory Respiratory effort: normal Respiratory: bilateral: CTA - Cardiovascular Rhythm: regular Heart Sounds: Present: S1 & S2. Absent: gallop, rub - Extremities Extremities: no ischemia, No edema, Full ROM - Abdominal General gastrointestinal: soft, non-tender, non-distended, normal bowel sounds - Integumentary Integumentary: Present: clear, warm, dry - Neurologic Neurologic: CNII-XII intact, moves all extremities Results - Labs CBC & Chem 7: 11/08/18 21:28 11/09/18 18:35 Labs: Laboratory Last Values WBC 5.9 K/mm3 (4.5-11.0) 11/08/18 21:28 RBC 5.04 M/mm3 (3.65-5.03) H 11/08/18 21:28 Hgb 16.0 gm/dl (11.8-15.2) H 11/08/18 21:28 Hct 46.7 % (35.5-45.6) H 11/08/18 21:28 MCV 93 fl (84-94) 11/08/18 21:28 MCH 32 pg (28-32) 11/08/18 21:28 MCHC 34 % (32-34) 11/08/18 21:28 RDW 13.5 % (13.2-15.2) 11/08/18 21:28 Plt Count 132 K/mm3 (140-440) L 07/10/19 21:28 Lymph % (Auto) 20.9 % (13.4-35.0) 11/08/18 21:28 [place] % (Auto) 6.7 % (0.0-7.3) 11/08/18 21:28 Eos % (Auto) 0.4 % (0.0-4.3) 11/08/18 21:28 Baso % (Auto) 0.5 % (0.0-1.8) 11/08/18 21:28 Lymph # 1.2 K/mm3 (1.2-5.4) 11/08/18 21:28 [place] # 0.4 K/mm3 (0.0-0.8) 11/08/18 21: Eos # 0.0 K/mm3 (0.0-0.4) 11/08/18 21: Baso # 0.0 K/mm3 (0.0-0.1) 11/08/18 21:28 Seg Neutrophils % 71.5 % (40.0-70.0) H 11/08/18 21:28 Seg Neutrophils # 4.2 K/mm3 (1.8-7.7) 11/08/18 21:28 PT 14.1 Sec. (12.2-14.9) 11/08/18 21:28 INR 1.12 (0.87-1.13) 11/08/18 21:28 APTT 24.5 Sec. (24.2-36.6) 11/08/18 21:28 360.70 ng/mlDDU (0-234) H 11/08/18 23:57 Sodium 132 mmol/L (137-145) L 11/08/18 21:28 Potassium 4.6 mmol/L (3.6-5.0) 11/08/18 21:28 Chloride 95.8 mmol/L (98-107) L 11/08/18 21:28 Carbon Dioxide 26 mmol/L (22-30) 11/08/18 21:28 15 mmol/L 11/08/18 21:28 BUN 11 mg/dL (9-20) 11/08/18 21:28 1.0 mg/dL (0.8-1.5) 11/08/18 21:28 Estimated GFR > 60 ml/min 11/08/18 21:28 11 % 11/08/18 21:28 Glucose 627 mg/dL (75-100) H* 11/09/18 18:35 POC Glucose 118 (70-105) H 11/10/18 07:42 Calcium 9.0 mg/dL (8.4-10.2) 11/08/18 21:28 0.40 mg/dL (0.1-1.2) 11/08/18 21:28 AST 29 units/L (5-40) 11/08/18 21:28 ALT 36 units/L (7-56) 11/08/18 21:28 126 units/L (35-129) 11/08/18 21:28 110 units/L (55-170) 11/09/18 12:08 CK-MB (CK-2) 1.7 ng/mL (0.0-4.0) 11/09/18 12:08 CK-MB (CK-2) Rel Index 1.5 (0-4) 11/09/18 12:08 < 0.010 ng/mL (0.00-0.029) 11/09/18 12:08 6.9 g/dL (6.3-8.2) 11/08/18 21:28 4.1 g/dL (3.9-5) 11/08/18 21:28 1.5 % 11/08/18 21:28 Active Medications - Current Medications Current Medications: Generic Name Dose Route Start Last Admin Trade Name Freq PRN Reason Stop Dose Admin Acetaminophen 650 mg 11/09/18 03:30 Tylenol PO Q4H PRN Headache Aspirin 325 mg 11/09/18 10:00 11/09/18 10:50 Aspirin PO 325 mg QDAY YENY Administration Dextrose 50 ml 11/09/18 03:34 D50w (25gm) Syringe IV PRN PRN Hypoglycemia Enoxaparin Sodium 40 mg 11/09/18 22:00 11/09/18 22:16 Lovenox SUB-Q 40 mg QDAY@2200 YENY Administration Insulin Human Regular 0 units 11/09/18 04:00 11/10/18 06:05 Humulin R SUB-Q Not Given Q4HR YENY Protocol Morphine Sulfate 2 mg 11/09/18 03:29 11/10/18 07:55 Morphine IV 2 mg Q3H PRN Administration Pain, Moderate (4-6) Nitroglycerin 0.5 inch 11/09/18 06:00 11/10/18 05:59 Nitro-Bid 2% TP 0.5 inch QIDNTG YENY Administration Protocol Nitroglycerin 0.4 mg 11/09/18 03:30 Nitrostat SL .Q5MIN PRN Chest Pain Ondansetron HCl 4 mg 11/09/18 03:29 Zofran IV Q8H PRN Nausea And Vomiting Nutrition/Malnutrition Assess - Dietary Evaluation Nutrition/Malnutrition Findings: Nutrition Notes Start: 11/09/18 12:35 Freq: Status: Active Protocol: Document 11/09/18 12:35 LP (Rec: 11/09/18 12:36 LP [id number]) Nutrition Notes Need for Assessment generated from: manager of medical Initial or Follow up Brief Note Current Diagnosis Diabetes,Hypertension,Heart Failure Subjective/Other Information Screen for MST. Pt not in room at time of visit. Nutrition Intervention Follow-Up By: 11/10/18 Additional Comments Follow for assessment needs
[2018-11-10] MEDS: ASPIRIN PO SCH (10:16)
[2018-11-10] MEDS: LOVENOX SUB-Q SCH (22:47)
[2018-11-11] MEDS: MORPHINE IV PRN ×3 (02:22→09:21)
[2018-11-11] MEDS: HumuLIN R SUB-Q SCH ×3 (02:22→09:07)
[2018-11-11] MEDS: NITRO-BID 2% TP SCH ×2 (06:22→09:07)
[2018-11-11] MEDS: ASPIRIN PO SCH (09:07)
--- NOTE | 2018-11-11 09:18 | Progress Note ---
Assessment and Plan Assessment and plan: Syncope. Stress test was found be negative. CT scan of the head negative. Follow-up echocardiogram and carotid Dopplers. Etiology likely secondary to orthostatic hypotension. Congestive heart failure. Compensated. Diabetes mellitus type 2. Continue Accucheks and sliding scale insulin. Recent left rotator cuff surgery. Continue pain control. History Interval history: No new issues overnight. Hospitalist Physical - Constitutional Vitals: Temp Pulse Resp BP Pulse Ox 98.0 F 67 18 106/67 94 11/11/18 08:22 11/11/18 09:07 11/11/18 08:22 11/11/18 09:07 11/11/18 08:22 General appearance: Present: no acute distress, well-nourished - EENT Eyes: Present: PERRL, EOM intact ENT: hearing intact, clear oral mucosa, dentition normal - Neck Neck: Present: supple, normal ROM - Respiratory Respiratory effort: normal Respiratory: bilateral: CTA - Cardiovascular Rhythm: regular Heart Sounds: Present: S1 & S2. Absent: gallop, rub - Extremities Extremities: no ischemia, No edema, Full ROM - Abdominal General gastrointestinal: soft, non-tender, non-distended, normal bowel sounds - Integumentary Integumentary: Present: clear, warm, dry - Neurologic Neurologic: CNII-XII intact, moves all extremities Results - Labs CBC & Chem 7: 11/08/18 21:28 11/09/18 18:35 Labs: Laboratory Last Values WBC 5.9 K/mm3 (4.5-11.0) 11/08/18 21:28 RBC 5.04 M/mm3 (3.65-5.03) H 11/08/18 21:28 Hgb 16.0 gm/dl (11.8-15.2) H 11/08/18 21:28 Hct 46.7 % (35.5-45.6) H 11/08/18 21:28 MCV 93 fl (84-94) 11/08/18 21:28 MCH 32 pg (28-32) 11/08/18 21:28 MCHC 34 % (32-34) 11/08/18 21:28 RDW 13.5 % (13.2-15.2) 11/08/18 21:28 Plt Count 132 K/mm3 (140-440) L 11/08/18 21:28 Lymph % (Auto) 20.9 % (13.4-35.0) 11/08/18 21:28 [place] % (Auto) 6.7 % (0.0-7.3) 11/08/18 21:28 Eos % (Auto) 0.4 % (0.0-4.3) 11/08/18 21:28 Baso % (Auto) 0.5 % (0.0-1.8) 11/08/18 21:28 Lymph # 1.2 K/mm3 (1.2-5.4) 11/08/18 21:28 [place] # 0.4 K/mm3 (0.0-0.8) 11/08/18 21:28 Eos # 0.0 K/mm3 (0.0-0.4) 11/08/18 21:28 Baso # 0.0 K/mm3 (0.0-0.1) 11/08/18 21:28 Seg Neutrophils % 71.5 % (40.0-70.0) H 11/08/18 21:28 Seg Neutrophils # 4.2 K/mm3 (1.8-7.7) 11/08/18 21:28 PT 14.1 Sec. (12.2-14.9) 11/08/18 21:28 INR 1.12 (0.87-1.13) 11/08/18 21:28 APTT 24.5 Sec. (24.2-36.6) 11/08/18 21:28 360.70 ng/mlDDU (0-234) H 11/08/18 23:57 Sodium 132 mmol/L (137-145) L 11/08/18 21:28 Potassium 4.6 mmol/L (3.6-5.0) 11/08/18 21:28 Chloride 95.8 mmol/L (98-107) L 11/08/18 21:28 Carbon Dioxide 26 mmol/L (22-30) 11/08/18 21:28 15 mmol/L 11/08/18 21:28 BUN 11 mg/dL (9-20) 11/08/18 21:28 1.0 mg/dL (0.8-1.5) 11/08/18 21:28 Estimated GFR > 60 ml/min 11/08/18 21:28 11 % 11/08/18 21:28 Glucose 627 mg/dL (75-100) H* 11/09/18 18:35 POC Glucose 167 (70-105) H 11/11/18 08:15 Calcium 9.0 mg/dL (8.4-10.2) 11/08/18 21:28 0.40 mg/dL (0.1-1.2) 11/08/18 21:28 AST 29 units/L (5-40) 11/08/18 21:28 ALT 36 units/L (7-56) 11/08/18 21:28 126 units/L (35-129) 11/08/18 21:28 110 units/L (55-170) 11/09/18 12:08 CK-MB (CK-2) 1.7 ng/mL (0.0-4.0) 11/09/18 12:08 CK-MB (CK-2) Rel Index 1.5 (0-4) 11/09/18 12:08 < 0.010 ng/mL (0.00-0.029) 11/09/18 12:08 6.9 g/dL (6.3-8.2) 11/08/18 21:28 4.1 g/dL (3.9-5) 11/08/18 21:28 1.5 % 11/08/18 21:28 Active Medications - Current Medications Current Medications: Generic Name Dose Route Start Last Admin Trade Name Freq PRN Reason Stop Dose Admin Acetaminophen 650 mg 11/09/18 03:30 Tylenol PO Q4H PRN Headache Aspirin 325 mg 11/09/18 10:00 11/11/18 09:07 Aspirin PO 325 mg QDAY YENY Administration Dextrose 50 ml 11/09/18 03:34 D50w (25gm) Syringe IV PRN PRN Hypoglycemia Enoxaparin Sodium 40 mg 11/09/18 22:00 11/10/18 22:47 Lovenox SUB-Q 40 mg QDAY@2200 YENY Administration Insulin Human Regular 0 units 11/09/18 04:00 11/11/18 09:07 Humulin R SUB-Q 2 units Q4HR YENY Administration Protocol Morphine Sulfate 2 mg 11/09/18 03:29 11/11/18 06:21 Morphine IV 2 mg Q3H PRN Administration Pain, Moderate (4-6) Nitroglycerin 0.5 inch 11/09/18 06:00 11/11/18 09:07 Nitro-Bid 2% TP Not Given QIDNTG [facility] Protocol Nitroglycerin 0.4 mg 11/09/18 03:30 Nitrostat SL .Q5MIN PRN Chest Pain Ondansetron HCl 4 mg 11/09/18 03:29 Zofran IV Q8H PRN Nausea And Vomiting Nutrition/Malnutrition Assess - Dietary Evaluation Nutrition/Malnutrition Findings: Nutrition Notes Start: 11/09/18 12:35 Freq: Status: Active Protocol: Document 11/10/18 17:08 RM (Rec: 11/10/18 17:13 RM [id number]) Nutrition Notes Initial or Follow up Assessment Current Diagnosis Diabetes,Hypertension,Heart Failure Current Diet Cardiac/consistent CHO Labs/Tests Reviewed Pertinent Medications Reviewed Height 5 ft 10 in Weight 78.1 kg [place] Body Weight (kg) 75.45 BMI 24.7 Subjective/Other Information Pt stated that his appetite is poor and that he eats bites of his meals. Admitted to N/V yesterday but none today. Noted preferences. Percent of energy/protein needs met: 0%/0% Burn Absent Trauma Absent #1 Nutrition Diagnosis Inadequate oral intake Etiology decreased appetite As Evidenced by Signs and Symptoms pt statement that he eats bites of his meals Is patient on ventilator? No Is Patient Ambulatory and/or Out of Bed Yes REE-([facility]-ambulatory/OOB) [ 2121.925 [id number]] Calculation Used for Recommendations [facility] Additional Notes Protein Needs: 62-78g (0.8-1g/ kg) Fluid Needs: 1 ml/kcal Nutrition Intervention Change Diet Order: Continue current Add Supplement/Snack (indicate name/kcal Glucerna Chocolate, Vanilla, /protein ) [place] 1 daily Provides kCal: 220 Provides Protein (gm) 10 Goal #1 Meet at least 75% of calorie and protein needs via PO and ONS intakes Anticipated Discharge Needs: Unable to determine at this time Follow-Up By: 11/13/18 Additional Comments Follow for PO and ONS intakes
--- NOTE | 2018-11-11 09:21 | Discharge Summary ---
Providers - Providers Date of Admission: 11/09/18 03:25 Date of discharge: 11/11/18 Attending physician: MARGI PRATER [facility] Reason for admission: syncope Condition: Stable Hospital course: Patient 53 yo with a history of congestive heart failure, diabetes mellitus recent left rotator cuff surgery presents with near syncopal episode at home. Patient related that prior to this episode he had some chest and arm tightness. Patient was brought in for cardiac evaluation of syncope. Patient was ruled out by cardiac isoenzymes. Troponins negative and EKG normal. Stress test was unremarkable for ischemia. Etiology unlikely to be cardiac in origin. The etiology most likely secondary to rotator cuff pain. Patient had a previous carotid Doppler on 10/09/2018 was found to be negative. Echocardiogram was completed and can be followed up as an outpatient. Dedicated discharge time 32 minutes. Disposition: DC-30 STILL A PATIENT - Discharge Diagnoses (1) Pre-syncope Status: Acute (2) Acute chest pain Status: Acute (3) Hyperglycemia Status: Acute Core Measure Documentation - Palliative Care Palliative Care/ Comfort Measures: Not Applicable - Core Measures Any of the following diagnoses?: none Exam - Constitutional Vitals: Temp Pulse Resp BP Pulse Ox 98.0 F 67 18 106/67 94 11/11/18 08:22 11/11/18 09:07 11/11/18 08:22 11/11/18 09:07 11/11/18 08:22 General appearance: Present: no acute distress, well-nourished - EENT Eyes: Present: PERRL ENT: hearing intact, clear oral mucosa - Neck Neck: Present: supple, normal ROM - Respiratory Respiratory effort: normal Respiratory: bilateral: CTA - Cardiovascular Heart Sounds: Present: S1 & S2. Absent: rub, click - Extremities Extremities: pulses symmetrical, No edema Peripheral Pulses: within normal limits - Abdominal General gastrointestinal: Present: soft, non-tender, non-distended, normal bowel sounds Male genitourinary: Present: normal - Integumentary Integumentary: Present: clear, warm, dry - Musculoskeletal Musculoskeletal: gait normal, strength equal bilaterally - Psychiatric Psychiatric: appropriate mood/affect, intact judgment & insight - Neurologic Neurologic: CNII-XII intact, moves all extremities Plan Activity: advance as tolerated Weight Bearing Status: Weight Bear as Tolerated Diet: diabetic [facility] [Primary Care Provider] - 3-5 Days Prescriptions: traZODone [Desyrel] 100 mg PO QHS #30 tablet Dapagliflozin Propanediol [Farxiga] 10 mg PO BID #60 tablet metFORMIN [Glucophage] 1,000 mg PO BID 30 Days tablet AtorvaSTATin [Lipitor] 40 mg PO QHS #30 tablet Miconazole 2% [Monistat-Derm] 1 applicatio TP BID 30 Days tube
[2018-11-11] MEDS ORDERED: NON-FORMULARY (Dapagliflozin Propanediol [Farxiga] 10 MG) PO SCH (10:00)
[2018-11-11] MEDS ORDERED: GLUCOPHAGE PO SCH (10:00)
[2018-11-11 11:57] VITALS: BP 98/61
[2018-11-11] MEDS ORDERED: DESYREL PO SCH (22:00)
== END 2018-11-11 13:04 | disposition home or self-care (01) | DRG 556 ==
LOC: ED 20:13 → 4A 11-09 03:25
PROVIDERS: ADMIT Internal Medicine; ATTEND Hospitalist
DX: M25.519 Pain in unspecified shoulder (principal); I95.1 Orthostatic hypotension; R07.9 Chest pain, unspecified; I50.9 Heart failure, unspecified; E11.65 Type 2 diabetes mellitus with hyperglycemia; I11.0 Hypertensive heart disease with heart failure; M19.90 Unspecified osteoarthritis, unspecified site; Z87.891 Personal history of nicotine dependence; Z88.5 Allergy status to narcotic agent
CPT/HCPCS: 36415; 70450; 71046; 78452; 80053; 82550; 82553; 82947; 82962; 84484; 85025; 85379; 85610; 85730; 87116; 93005; 93010; 93017; 93306; 96374; 99285; G0378; A9502; J1650; J1815; J2270; J2785; J7030

== ENCOUNTER 2018-12-08 06:32 | Inpatient (IN) | payer BC ==
[2018-12-08 06:51] LABS: Bilirubin,Urine NEG (Negative); Blood,Urine NEG (Negative); Color,Urine Colorless (Yellow); Protein,Urine <15 mg/dL mg/dL (Negative); Urobilinogen,Urine < 2.0 mg/dL (<2.0)
[2018-12-08 06:57] LABS: Basophils % (Auto) 0.6 % (0.0-1.8); Eosinophils # (Auto) 0.1 K/mm3 (0.0-0.4); Eosinophils % (Auto) 0.6 % (0.0-4.3); Hematocrit 49.2 % (35.5-45.6); Hemoglobin 16.4 gm/dl (11.8-15.2); Lymphocytes # (Auto) 1.8 K/mm3 (1.2-5.4); Lymphocytes % (Auto) 22.4 % (13.4-35.0); Mean Corpuscular HGB Conc 33 % (32-34); Mean Corpuscular Volume 94 fl (84-94); Monocytes # (Auto) 0.5 K/mm3 (0.0-0.8); Monocytes % (Auto) 5.7 % (0.0-7.3); Platelet Count 162 K/mm3 (140-440); Red Blood Count 5.26 M/mm3 (3.65-5.03); Red Cell Distribution Width 13.7 % (13.2-15.2)
[2018-12-08 07:11] LABS: BUN/Creatinine Ratio 10; Blood Urea Nitrogen 10 mg/dL (9-20); Calcium 9.5 mg/dL (8.4-10.2); Hemolysis Index 41
--- NOTE | 2018-12-08 07:21 | Emergency Department Report ---
ED Chest Pain HPI - General Chief Complaint: Chest Pain Stated Complaint: MADELEINE STARR Time Seen by Provider: 12/08/18 06:55 Source: patient Mode of arrival: Ambulatory Limitations: No Limitations - History of Present Illness Initial Comments: This is a 53-year-old man who has been to the emergency department here in [facility] for evaluation of chest pain in the past. He has never had a heart catheterization. He has never followed up with a tobacco cloth reclaimer. He is a type II diabetic who has been recently prescribed an injectable "insulin" was nonformulary on his insurance plan. He states that he is also lost about 30 pounds somewhat acutely. Today he awoke with chest pain which she described as dull and pressure bilateral anterior chest without radiation. He was not coughing or particularly short of breath. He did have some nausea. His states that he has been regurgitating over the last few days. This morning the patient states that he checked his sugar and it was over 500. He states that his vision was blurry as it does when his sugar is low or high. He was a little bit vague about fingerstick testing. However as far as I can tell he is saying that he did do so. Patient or his states that he had rotator cuff surgery approximately one month ago. Yesterday he went to a pain management clinic for the first time. He is not on any recent traveling. He has no history of venous thromboembolism. He denies a family history of myocardial infarction. The patient states he was treated for congestive heart failure while he was an inpatient at [place]. However, he was never prescribed outpatient medication for congestive heart failure. MD Complaint: chest pain Onset: during rest Pain Location: other (anterior somewhat lower chest) Pain Radiation: none Severity scale (0 -10): 10 (stated to nurse apparently, does not appear to be in distress) Quality: aching Consistency: constant Improves With: nothing (persistent) Worsens With: nothing re: nausea Other Symptoms: other (blurred vision). denies: cough, fever, syncope Treatments Prior to Arrival: none - Related Data Previous Rx's Medication Instructions Recorded Last Taken Type oxyCODONE /ACETAMINOPHEN [Percocet 2 tab PO Q6H PRN #20 tablet 10/12/18 Unknown Rx 5/325 mg] AtorvaSTATin [Lipitor] 40 mg PO QHS #30 tablet 11/11/18 Unknown Rx Dapagliflozin Propanediol [Farxiga] 10 mg PO BID #60 tablet 11/11/18 Unknown Rx Miconazole 2% [Monistat-Derm] 1 applicatio TP BID 30 Days tube 11/11/18 Unknown Rx Nitroglycerin [Nitrostat] 0.4 mg SL .Q5MIN PRN tablet 11/11/18 Unknown Rx metFORMIN [Glucophage] 1,000 mg PO BID 30 Days tablet 11/11/18 Unknown Rx oxyCODONE /ACETAMINOPHEN [Percocet 1 tab PO Q6HR #8 tablet 11/11/18 Unknown Rx 5/325] traZODone [Desyrel] 100 mg PO QHS #30 tablet 11/11/18 Unknown Rx Allergies Allergy/AdvReac Type Severity Reaction Status Date / Time codeine Allergy Hives Verified 09/13/18 16:17 Heart Score - HEART Score History: Slightly suspicious EKG: Normal Age: 45-65 Risk factors: 1-2 risk factors Troponin: < normal limit HEART Score: 2 - Critical Actions Critical Actions: 0-3 pts:0.9-1.7%risk of adverse cardiac event.Candidate for discharge ED Review of Systems ROS: Stated complaint: SOB,CP Other details as noted in HPI Constitutional: other (weight loss). denies: chills, fever Eyes: vision change (when sugar is up or down). denies: eye pain, eye discharge ENT: denies: ear pain, throat pain Respiratory: denies: cough, shortness of breath, wheezing Cardiovascular: chest pain. denies: palpitations Endocrine: no symptoms reported Gastrointestinal: nausea, other (reflux symptoms). denies: abdominal pain, diarrhea Genitourinary: denies: urgency, dysuria Musculoskeletal: denies: back pain, joint swelling, arthralgia Skin: denies: rash, lesions Neurological: denies: headache, weakness, paresthesias Psychiatric: denies: anxiety, depression Hematological/Lymphatic: denies: easy bleeding, easy bruising ED Past Medical Hx - Past Medical History Previous Medical History?: Yes Hx Hypertension: Yes Hx Heart Attack/AMI: No Hx Congestive Heart Failure: Yes Hx Diabetes: Yes Hx Liver Disease: No Hx Renal Disease: No Hx Arthritis: Yes Hx HIV: No - Surgical History Past Surgical History?: Yes Additional Surgical History: Hernia repair , Left rotator Cuff - Social History Smoking Status: Current Every Day Smoker Substance Use Type: None - Medications Home Medications: Home Medications Medication Instructions Recorded Confirmed Last Taken Type oxyCODONE /ACETAMINOPHEN [Percocet 2 tab PO Q6H PRN #20 tablet 10/12/18 11/10/18 Unknown Rx 5/325 mg] AtorvaSTATin [Lipitor] 40 mg PO QHS #30 tablet 11/11/18 Unknown Rx Dapagliflozin Propanediol [Farxiga] 10 mg PO BID #60 tablet 11/11/18 Unknown Rx Miconazole 2% [Monistat-Derm] 1 applicatio TP BID 30 Days tube 11/11/18 Unknown Rx Nitroglycerin [Nitrostat] 0.4 mg SL .Q5MIN PRN tablet 11/11/18 Unknown Rx metFORMIN [Glucophage] 1,000 mg PO BID 30 Days tablet 11/11/18 Unknown Rx oxyCODONE /ACETAMINOPHEN [Percocet 1 tab PO Q6HR #8 tablet 11/11/18 Unknown Rx 5/325] traZODone [Desyrel] 100 mg PO QHS #30 tablet 11/11/18 Unknown Rx ED Physical Exam - General Limitations: No Limitations General appearance: alert, in no apparent distress, other (somewhat asthenic) - Head Head exam: Present: atraumatic, normocephalic - Eye Eye exam: Present: normal appearance. Absent: scleral icterus - ENT ENT exam: Present: mucous membranes moist - Neck Neck exam: Present: normal inspection. Absent: tenderness, meningismus - Respiratory Respiratory exam: Present: normal lung sounds bilaterally. Absent: respiratory distress - Cardiovascular Cardiovascular Exam: Present: regular rate, normal rhythm. Absent: systolic murmur, diastolic murmur, rubs, gallop - GI/Abdominal GI/Abdominal exam: Present: soft, normal bowel sounds. Absent: distended, tenderness, guarding, rebound, rigid - Rectal Rectal exam: Present: deferred - Extremities Exam Extremities exam: Present: normal inspection - Back Exam Back exam: Present: normal inspection - Neurological Exam Neurological exam: Present: alert, oriented X3, CN II-XII intact. Absent: motor sensory deficit - Psychiatric Psychiatric exam: Present: normal mood, flat affect - Skin Skin exam: Present: warm, dry, intact, normal color. Absent: rash ED Course Vital Signs 12/08/18 12/08/18 12/08/18 06:37 06:54 06:57 Temperature 98.3 F 98.3 F Pulse Rate 100 H 85 Respiratory 20 13 Rate Blood Pressure 116/59 Blood Pressure 123/57 [Left] O2 Sat by Pulse 97 96 98 Oximetry 12/08/18 12/08/18 12/08/18 07:00 07:15 07:30 Temperature Pulse Rate 83 78 Respiratory 16 16 18 Rate Blood Pressure 120/60 120/60 Blood Pressure [Left] O2 Sat by Pulse 95 97 Oximetry 12/08/18 12/08/18 12/08/18 07:31 07:45 08:00 Temperature Pulse Rate 87 81 75 Respiratory 14 11 L 19 Rate Blood Pressure 120/60 120/60 128/53 Blood Pressure [Left] O2 Sat by Pulse 96 99 99 Oximetry - Reevaluation(s) Reevaluation #1: Patient was given insulin. This should address his slightly elevated potassium. I do not think he will need a drip. The Accu-Chek is ordered. He is found to have an elevated d-dimer. A CT angiogram has been ordered. He is getting IV fluids. He will be admitted to the hospitalist service for further care and Evaluation. 12/08/18 08:58 RILEY score - Riley Score Age > 65: (0) No Aspirin use within the Past 7 Days: (0) No 3 or more CAD Risk Factors: (1) Yes 2 or more Angina events in past 24 hrs: (0) No Known CAD with more than 50% Stenosis: (0) No Elevated Cardiac Markers: (0) No ST Deviation Greater than 0.5mm: (0) No RILEY Score: 1 ED Medical Decision Making - Lab Data Result diagrams: 12/08/18 06:45 12/08/18 06:45 Laboratory Results - last 24 hr 12/08/18 12/08/18 12/08/18 06:45 06:45 06:45 WBC 8.2 RBC 5.26 H Hgb 16.4 H Hct 49.2 H MCV 94 MCH 31 MCHC 33 RDW 13.7 Plt Count 162 Lymph % (Auto) 22.4 [place] % (Auto) 5.7 Eos % (Auto) 0.6 Baso % (Auto) 0.6 Lymph # 1.8 [place] # 0.5 Eos # 0.1 Baso # 0.0 Seg Neutrophils % 70.7 H Seg Neutrophils # 5.8 PT INR APTT D-Dimer VBG pH 7.375 Sodium 128 L Potassium 5.2 H Chloride 87.5 L Carbon Dioxide 23 Anion Gap 23 BUN 10 Creatinine 1.0 Estimated GFR > 60 BUN/Creatinine Ratio 10 Glucose 971 H* Calcium 9.5 Magnesium Total Bilirubin Direct Bilirubin Indirect Bilirubin AST ALT Alkaline Phosphatase Total Creatine Kinase CK-MB (CK-2) CK-MB (CK-2) Rel Index Troponin T < 0.010 NT-Pro-B Natriuret Pep Total Protein Albumin Albumin/Globulin Ratio Urine Color Urine Turbidity Urine pH Ur Specific [place] Urine Protein Urine Glucose (UA) Urine Ketones Urine Blood Urine Nitrite Urine Bilirubin Urine Urobilinogen Ur Leukocyte Esterase Urine WBC (Auto) Urine RBC (Auto) 12/08/18 12/08/18 12/08/18 06:52 06:52 07:13 WBC RBC Hgb Hct MCV MCH MCHC RDW Plt Count Lymph % (Auto) [place] % (Auto) Eos % (Auto) Baso % (Auto) Lymph # [place] # Eos # Baso # Seg Neutrophils % Seg Neutrophils # PT 14.1 INR 1.12 APTT 24.7 D-Dimer VBG pH Sodium Potassium Chloride Carbon Dioxide Anion Gap BUN Creatinine Estimated GFR BUN/Creatinine Ratio Glucose Calcium Magnesium 2.00 Total Bilirubin 1.00 Direct Bilirubin 0.3 H Indirect Bilirubin 0.7 AST 56 H ALT 83 H Alkaline Phosphatase 150 H Total Creatine Kinase 51 L CK-MB (CK-2) 1.7 CK-MB (CK-2) Rel Index 3.3 Troponin T NT-Pro-B Natriuret Pep 20.77 Total Protein 7.3 Albumin 4.0 Albumin/Globulin Ratio 1.2 Urine Color Urine Turbidity Urine pH Ur Specific [place] Urine Protein Urine Glucose (UA) Urine Ketones Urine Blood Urine Nitrite Urine Bilirubin Urine Urobilinogen Ur Leukocyte Esterase Urine WBC (Auto) Urine RBC (Auto) 12/08/18 12/08/18 07:13 Unknown WBC RBC Hgb Hct MCV MCH MCHC RDW Plt Count Lymph % (Auto) [place] % (Auto) Eos % (Auto) Baso % (Auto) Lymph # [place] # Eos # Baso # Seg Neutrophils % Seg Neutrophils # PT INR APTT D-Dimer 497.07 H VBG pH Sodium Potassium Chloride Carbon Dioxide Anion Gap BUN Creatinine Estimated GFR BUN/Creatinine Ratio Glucose Calcium Magnesium Total Bilirubin Direct Bilirubin Indirect Bilirubin AST ALT Alkaline Phosphatase Total Creatine Kinase CK-MB (CK-2) CK-MB (CK-2) Rel Index Troponin T NT-Pro-B Natriuret Pep Total Protein Albumin Albumin/Globulin Ratio Urine Color Colorless Urine Turbidity Clear Urine pH 6.0 Ur Specific [place] 1.032 H Urine Protein <15 mg/dl Urine Glucose (UA) >=500 Urine Ketones Neg Urine Blood Neg Urine Nitrite Neg Urine Bilirubin Neg Urine Urobilinogen < 2.0 Ur Leukocyte Esterase Neg Urine WBC (Auto) < 1.0 Urine RBC (Auto) 1.0 - EKG Data -: EKG Interpreted by Me EKG shows normal: sinus rhythm, axis, intervals, QRS complexes, ST-T waves Rate: normal - EKG Data Interpretation: other (mildly peaked T waves suggestive of hyperkalemia) - Radiology Data Radiology results: report reviewed (no acute process) Critical care attestation.: If time is entered above; I have spent that time in minutes in the direct care of this critically ill patient, excluding procedure time. ED Disposition Clinical Impression: Hyperglycemia due to type 1 diabetes mellitus, Acute chest pain, Elevated d- dimer, Hyperkalemia Disposition: OP ADMIT IP TO THIS HOSP Is pt being admited?: Yes Does the pt Need Aspirin: Yes Condition: Stable Instructions: Diabetes Mellitus Type 2 in Adults (ED), Chest Pain (ED) Time of Disposition: 08:58
[2018-12-08 07:24] LABS: WBC,Urine < 1.0 /HPF (0.0-6.0)
[2018-12-08 07:32] LABS: INR 1.12 (0.87-1.13); Partial Thromboplastin Time 24.7 Sec. (24.2-36.6)
[2018-12-08 07:33] LABS: Creatine Kinase MB 1.7 ng/mL (0.0-4.0)
[2018-12-08 07:35] LABS: Bilirubin,Direct 0.3 mg/dL (0-0.2)
[2018-12-08] MEDS ORDERED: ZOFRAN IV ONE (07:36)
[2018-12-08] MEDS ORDERED: MORPHINE IV ONE (07:36)
[2018-12-08] MEDS ORDERED: NACL 0.9% 1000 ML 1,000 ML IV ONE ×2 (07:38→09:00)
[2018-12-08] MEDS ORDERED: HumuLIN R IV ONE (07:39)
--- NOTE | 2018-12-08 07:39 | XRay Report ---
CHEST 1 VIEW INDICATION / CLINICAL INFORMATION: Chest Pain. COMPARISON: 11/08/2018 FINDINGS: SUPPORT DEVICES: None. HEART / MEDIASTINUM: No significant abnormality. LUNGS / PLEURA: No significant pulmonary or pleural abnormality. No pneumothorax. ADDITIONAL FINDINGS: No significant additional findings. IMPRESSION: 1. No significant change Signer Name: Kel Meade MD Signed: 12/08/2018 7:34 AM Workstation Name: [id number]
[2018-12-08] MEDS ORDERED: ASPIRIN PO ONE (09:00)
[2018-12-08] MEDS ORDERED: D50W (25GM) Syringe IV PRN (10:27)
[2018-12-08] MEDS ORDERED: ZOFRAN IV PRN (10:38)
[2018-12-08] MEDS ORDERED: SODIUM CHLORIDE FLUSH SYRINGE 10 ML IV PRN (10:38)
[2018-12-08] MEDS ORDERED: TYLENOL PO PRN (10:38)
--- NOTE | 2018-12-08 11:07 | Cat Scan Report ---
CTA CHEST WITH CONTRAST INDICATION : Chest pain and shortness of breath for one day. TECHNIQUE: Axial imaging performed through the chest, with contrast bolus timing set to maximize opa cification of the pulmonary arteries. Sagittal and coronal reformatted images. 3-plane MIP reformatte d images were obtained. All CT scans at this location are performed using CT dose reduction for ALAR A by means of automated exposure control. 60 mL of intravenous contrast administered. COMPARISON: No relevant comparison FINDINGS: Bolus: Contrast bolus timing is adequate. PTE: No filling defect is present to suggest PTE. Mediastinum: Heart and great vessels appear normal. No pathologic mediastinal adenopathy. Lungs: Lungs are clear. Bones: Degenerative changes in the spine with nothing acute. Upper abdomen: Limited imaging of the upper abdomen shows nothing acute. IMPRESSION: Negative for PTE. Clear lungs. Signer Name: Deon Silvestre Jr, MD Signed: 12/08/2018 11:02 AM Workstation Name: [id number]
[2018-12-08] MEDS ORDERED: PERCOCET 5/325 ONE (11:42)
[2018-12-08] MEDS: HumaLOG SUB-Q SCH ×5 (12:08→22:41)
[2018-12-08] MEDS ORDERED: HumaLOG SUB-Q ONE (12:09)
[2018-12-08] MEDS: PERCOCET 5/325 PO PRN ×2 (12:13→18:20)
--- NOTE | 2018-12-08 12:15 | Consultation ---
History of Present Illness Consult date: 12/08/18 Consult reason: chest pain History of present illness: This is a 53-year old male with a history of diabetes, noncompliant with medications and outpatient follow ups who presents to this hospital with blurred vision, shortness of breath and chest pain. Initial labs revealed severe hyperglycemia, glucose at 997 with a potassium of 5.2. Patient reports he has been out of medications for 12 weeks. A cardiac consultation has been requested for chest pain evaluation. Chest x-ray is negative and a CTA chest reports no evidence of PE. His ECG is sinus rhythm with peaked Twave consistent with hyperkalemia. There is no history of coronary disease. In fact, the patient has had extensive cardiac workup in the past. In 2016, a cardiac cath done at [facility] showed normal coronaries with a well preserved ejection fraction. A month ago, while hospita lized at this hospital, he had a negative stress thallium test with a normal left ventricular ejection fraction 55-60 by echocardiogram. Medications and Allergies Allergies Allergy/AdvReac Type Severity Reaction Status Date / Time codeine Allergy Hives Verified 09/13/18 16:17 Home Medications Medication Instructions Recorded Confirmed Last Taken Type oxyCODONE /ACETAMINOPHEN [Percocet 2 tab PO Q6H PRN #20 tablet 10/12/18 12/08/18 Unknown Rx 5/325 mg] metFORMIN [Glucophage] 1,000 mg PO BID 30 Days tablet 11/11/18 12/08/18 Unknown Rx Gabapentin [Neurontin] 300 mg PO Q8HR 12/08/18 12/08/18 Unknown History Active Meds: Active Medications Acetaminophen (Tylenol) 650 mg PO Q4H PRN PRN Reason: Pain MILD(1-3)/Fever >100.5/GARCIA Atorvastatin Calcium (Lipitor) 40 mg PO QHS YENY Dextrose (D50w (25gm) Syringe) 50 ml IV PRN PRN PRN Reason: Hypoglycemia Enoxaparin Sodium (Lovenox) 40 mg SUB-Q QDAY YENY Sodium Chloride (Nacl 0.9% 1000 Ml) 1,000 mls @ 250 mls/hr IV ONCE ONE Stop: 12/08/18 12:59 Last Admin: 12/08/18 09:00 Dose: 250 mls/hr Documented by: Sodium Chloride (Nacl 0.45% 1000 Ml) 1,000 mls @ 125 mls/hr IV DIRECT YENY Insulin Glargine (Lantus) 50 units SUB-Q QHS [facility] Insulin Glargine (Lantus) 25 units SUB-Q ONCE ONE Stop: 12/09/18 11:34 Insulin Human Lispro (Humalog) 15 unit SUB-Q AC [facility] Last Admin: 12/08/18 12:09 Dose: Not Given Documented by: Insulin Human Lispro (Humalog) 0 unit SUB-Q ACHS [facility]; Protocol Last Admin: 12/08/18 12:08 Dose: 8 unit Documented by: Metformin HCl (Glucophage) 1,000 mg PO BID [facility] Miscellaneous Medication (Dapagliflozin Propanediol [Farxiga]) 10 mg PO BID [facility] Ondansetron HCl (Zofran) 4 mg IV Q8H PRN PRN Reason: Nausea And Vomiting Oxycodone/Acetaminophen (Percocet 5/325) 2 tab PO Q6H PRN PRN Reason: Pain , Severe (7-10) Sodium Chloride (Sodium Chloride Flush Syringe 10 Ml) 10 ml IV BID [facility] Sodium Chloride (Sodium Chloride Flush Syringe 10 Ml) 10 ml IV PRN PRN PRN Reason: LINE FLUSH Trazodone HCl (Desyrel) 100 mg PO QHS [facility] Physical Examination Vital Signs Temp Pulse Resp BP Pulse Ox 98.3 F 100 H 20 116/59 97 12/08/18 06:37 12/08/18 06:37 12/08/18 06:37 12/08/18 06:37 12/08/18 06:37 General appearance: no acute distress HEENT: Positive: PERRL Neck: Positive: trachea midline Cardiac: Positive: Reg Rate and Rhythm Lungs: Positive: Decreased Breath Sounds Neuro: Positive: Grossly Intact Extremities: Absent: edema Results 12/08/18 06:45 12/08/18 06:45 Cardiac Enzymes 12/08/18 Range/Units 06:52 AST 56 H (5-40) units/L CK-MB (CK-2) 1.7 (0.0-4.0) ng/mL Coagulation 12/08/18 Range/Units 07:13 PT 14.1 (12.2-14.9) Sec. INR 1.12 (0.87-1.13) APTT 24.7 (24.2-36.6) Sec. CBC 12/08/18 Range/Units 06:45 WBC 8.2 (4.5-11.0) K/mm3 RBC 5.26 H (3.65-5.03) M/mm3 Hgb 16.4 H (11.8-15.2) gm/dl Hct 49.2 H (35.5-45.6) % Plt Count 162 (140-440) K/mm3 Lymph # 1.8 (1.2-5.4) K/mm3 [place] # 0.5 (0.0-0.8) K/mm3 Eos # 0.1 (0.0-0.4) K/mm3 Baso # 0.0 (0.0-0.1) K/mm3 Comprehensive Metabolic Panel 12/08/18 12/08/18 Range/Units 06:45 06:52 Sodium 128 L (137-145) mmol/L Potassium 5.2 H (3.6-5.0) mmol/L Chloride 87.5 L (98-107) mmol/L Carbon Dioxide 23 (22-30) mmol/L BUN 10 (9-20) mg/dL Creatinine 1.0 (0.8-1.5) mg/dL Glucose 971 H* (75-100) mg/dL Calcium 9.5 (8.4-10.2) mg/dL Direct Bilirubin 0.3 H (0-0.2) mg/dL Indirect Bilirubin 0.7 mg/dL AST 56 H (5-40) units/L ALT 83 H (7-56) units/L Alkaline Phosphatase 150 H (35-129) units/L Total Protein 7.3 (6.3-8.2) g/dL Albumin 4.0 (3.9-5) g/dL Assessment and Plan Uncontrolled Diabetes Chest pain, atypical negative MPI 10/2018 normal LVEF by echo 10/2018 normal coronaries by [facility] at [facility] 06/2015 Noncompliant with medications and outpatient follow up. No further cardiac workup indicated. We will defer to internal medicine for management of uncontrolled diabetes. We will sign off.
--- NOTE | 2018-12-08 15:42 | History and Physical Report ---
History of Present Illness Date of admission: 12/08/18 10:38 Chief complaint: I can't see well History of present illness: 53-year-old man history of insulin-dependent diabetes. He was recently in the hospital, he was discharged on insulins. He states that he wasn't able to get any of them filled with his insurance. Patient presents to the ER with a glucose of 900, blurry vision, feeling unwell, malaise and generalized weakness. He is also complaining of polyuria and polydipsia. He admits to poor adherence to diabetic diet, drinks a lot of sweet drinks, consumes cookies and bread. -He apparently told the nurse that he requires IV morphine for shoulder surgery which he had many months ago. States that is what he takes all the time. Constitutional: no fever, no chills, Eyes: bilateral: other (no complaint of visual problems.) Ears, nose, mouth and throat: mouth pain, no ear pain, no ear discharge, no decreased hearing, no nose pain, no nasal congestion, no bleeding gums, no dental pain, no dysphagia, no hoarseness, no sore throat Cardiovascular: no orthopnea, no palpitations, no rapid/irregular heart beat, no phlebitis Respiratory: no cough with sputum, no excessive sputum, no hemoptysis, no wheezing, no pleurisy, no pain Gastrointestinal: abdominal pain, nausea, no vomiting, no diarrhea, no hematochezia, no loss of appetite Rectal: no pain, no incontinence, no bleeding Musculoskeletal: no neck stiffness, no neck pain, no shooting arm pain, no arm numbness/tingling, no low back pain, no shooting leg pain, no leg numbness/tingling Integumentary: no pruritis, no redness, no sores Neurological: no transient paralysis, no paralysis, no weakness Psychiatric: no memory loss, no change in sleep habits, no disorientation Endocrine: no heat intolerance Hematologic/Lymphatic: no easy bruising, no easy bleeding Allergic/Immunologic: no allergic rhinitis Past medical history; hypertension, heart failure, diabetes, arthritis next Past surgical history; hernia repair, left rotator cuff repair Family history; diabetes Social history former smoker and does not use illicit drugs, denies tobacco or alcohol abuse at present. He lives with his spouse Medications and Allergies Allergies Allergy/AdvReac Type Severity Reaction Status Date / Time codeine Allergy Hives Verified 09/13/18 16:17 Home Medications Medication Instructions Recorded Confirmed Last Taken Type oxyCODONE /ACETAMINOPHEN [Percocet 2 tab PO Q6H PRN #20 tablet 10/12/18 12/08/18 Unknown Rx 5/325 mg] metFORMIN [Glucophage] 1,000 mg PO BID 30 Days tablet 11/11/18 12/08/18 Unknown Rx Gabapentin [Neurontin] 300 mg PO Q8HR 12/08/18 12/08/18 Unknown History Active Meds: Active Medications Acetaminophen (Tylenol) 650 mg PO Q4H PRN PRN Reason: Pain MILD(1-3)/Fever >100.5/GARCIA Atorvastatin Calcium (Lipitor) 40 mg PO QHS [facility] Dextrose (D50w (25gm) Syringe) 50 ml IV PRN PRN PRN Reason: Hypoglycemia Enoxaparin Sodium (Lovenox) 40 mg SUB-Q QDAY [facility] Sodium Chloride (Nacl 0.45% 1000 Ml) 1,000 mls @ 125 mls/hr IV DIRECT [facility] Insulin Glargine (Lantus) 50 units SUB-Q QHS [facility] Insulin Glargine (Lantus) 25 units SUB-Q ONCE ONE Stop: 12/09/18 11:34 Insulin Human Lispro (Humalog) 15 unit SUB-Q [facility] Last Admin: 12/08/18 12:09 Dose: Not Given Documented by: Insulin Human Lispro (Humalog) 0 unit SUB-Q [facility]; Protocol Last Admin: 12/08/18 12:08 Dose: 8 unit Documented by: Metformin HCl (Glucophage) 1,000 mg PO BID [facility] Miscellaneous Medication (Dapagliflozin Propanediol [Farxiga]) 10 mg PO BID [facility] Ondansetron HCl (Zofran) 4 mg IV Q8H PRN PRN Reason: Nausea And Vomiting Oxycodone/Acetaminophen (Percocet 5/325) 2 tab PO Q6H PRN PRN Reason: Pain , Severe (7-10) Last Admin: 12/08/18 12:13 Dose: 2 tab Documented by: Sodium Chloride (Sodium Chloride Flush Syringe 10 Ml) 10 ml IV BID [facility] Sodium Chloride (Sodium Chloride Flush Syringe 10 Ml) 10 ml IV PRN PRN PRN Reason: LINE FLUSH Trazodone HCl (Desyrel) 100 mg PO QHS YENY Exam - Constitutional Vitals: Temp Pulse Resp BP Pulse Ox 98.3 F 84 18 135/65 100 12/08/18 06:57 12/08/18 12:37 12/08/18 12:37 12/08/18 12:37 12/08/18 12:37 General appearance: Present: no acute distress, well-nourished - EENT Eyes: Present: PERRL ENT: hearing intact, clear oral mucosa - Neck Neck: Present: supple, normal ROM - Respiratory Respiratory effort: normal Respiratory: bilateral: CTA - Cardiovascular Heart Sounds: Present: S1 & S2. Absent: rub, click - Extremities Extremities: pulses symmetrical, No edema Peripheral Pulses: within normal limits - Abdominal General gastrointestinal: Present: soft, non-tender, non-distended, normal bowel sounds Male genitourinary: Present: normal - Integumentary Integumentary: Present: clear, warm, dry - Musculoskeletal Musculoskeletal: gait normal, strength equal bilaterally - Psychiatric Psychiatric: appropriate mood/affect, intact judgment & insight - Neurologic Neurologic: CNII-XII intact, moves all extremities Results - Labs CBC & Chem 7: 12/08/18 06:45 12/08/18 06:45 Labs: Laboratory Last Values WBC 8.2 K/mm3 (4.5-11.0) 12/08/18 06:45 RBC 5.26 M/mm3 (3.65-5.03) H 12/08/18 06:45 Hgb 16.4 gm/dl (11.8-15.2) H 12/08/18 06:45 Hct 49.2 % (35.5-45.6) H 12/08/18 06:45 MCV 94 fl (84-94) 12/08/18 06:45 MCH 31 pg (28-32) 12/08/18 06:45 MCHC 33 % (32-34) 12/08/18 06:45 RDW 13.7 % (13.2-15.2) 12/08/18 06:45 Plt Count 162 K/mm3 (140-440) 12/08/18 06:45 Lymph % (Auto) 22.4 % (13.4-35.0) 12/08/18 06:45 [place] % (Auto) 5.7 % (0.0-7.3) 12/08/18 06:45 Eos % (Auto) 0.6 % (0.0-4.3) 12/08/18 06:45 Baso % (Auto) 0.6 % (0.0-1.8) 12/08/18 06:45 Lymph # 1.8 K/mm3 (1.2-5.4) 12/08/18 06:45 [place] # 0.5 K/mm3 (0.0-0.8) 12/08/18 06:45 Eos # 0.1 K/mm3 (0.0-0.4) 12/08/18 06:45 Baso # 0.0 K/mm3 (0.0-0.1) 12/08/18 06:45 Seg Neutrophils % 70.7 % (40.0-70.0) H 12/08/18 06:45 Seg Neutrophils # 5.8 K/mm3 (1.8-7.7) 12/08/18 06:45 PT 14.1 Sec. (12.2-14.9) 12/08/18 07:13 INR 1.12 (0.87-1.13) 12/08/18 07:13 APTT 24.7 Sec. (24.2-36.6) 12/08/18 07:13 497.07 ng/mlDDU (0-234) H 12/08/18 07:13 VBG pH 7.375 (7.320-7.420) 12/08/18 06:45 Sodium 128 mmol/L (137-145) L 12/08/18 06:45 Potassium 5.2 mmol/L (3.6-5.0) H 12/08/18 06:45 Chloride 87.5 mmol/L (98-107) L 12/08/18 06:45 Carbon Dioxide 23 mmol/L (22-30) 12/08/18 06:45 23 mmol/L 12/08/18 06:45 BUN 10 mg/dL (9-20) 12/08/18 06:45 1.0 mg/dL (0.8-1.5) 12/08/18 06:45 Estimated GFR > 60 ml/min 12/08/18 06:45 10 % 12/08/18 06:45 Glucose 971 mg/dL (75-100) H* 08/09/19 06:45 POC Glucose 375 (70-105) H 12/08/18 11:59 Calcium 9.5 mg/dL (8.4-10.2) 12/08/18 06:45 Magnesium 2.00 mg/dL (1.7-2.3) 12/08/18 06:52 1.00 mg/dL (0.1-1.2) 12/08/18 06:52 0.3 mg/dL (0-0.2) H 12/08/18 06:52 0.7 mg/dL 12/08/18 06:52 AST 56 units/L (5-40) H 12/08/18 06:52 ALT 83 units/L (7-56) H 12/08/18 06:52 150 units/L (35-129) H 12/08/18 06:52 51 units/L (55-170) L 12/08/18 06:52 CK-MB (CK-2) 1.7 ng/mL (0.0-4.0) 12/08/18 06:52 CK-MB (CK-2) Rel Index 3.3 (0-4) 12/08/18 06:52 < 0.010 ng/mL (0.00-0.029) 12/08/18 14:23 NT-Pro-B Natriuret Pep 20.77 pg/mL (0-900) 12/08/18 06:52 7.3 g/dL (6.3-8.2) 12/08/18 06:52 4.0 g/dL (3.9-5) 12/08/18 06:52 1.2 % 12/08/18 06:52 Colorless (Yellow) 12/08/18 Unknown Clear (Clear) 12/08/18 Unknown 6.0 (5.0-7.0) 12/08/18 Unknown Ur Specific [place] 1.032 (1.003-1.030) H 12/08/18 Unknown <15 mg/dl mg/dL (Negative) 12/08/18 Unknown >=500 mg/dL (Negative) 12/08/18 Unknown Neg mg/dL (Negative) 12/08/18 Unknown Neg (Negative) 12/08/18 Unknown Neg (Negative) 12/08/18 Unknown Neg (Negative) 12/08/18 Unknown < 2.0 mg/dL (<2.0) 12/08/18 Unknown Ur Leukocyte Esterase Neg (Negative) 12/08/18 Unknown < 1.0 /HPF (0.0-6.0) 12/08/18 Unknown 1.0 /HPF (0.0-6.0) 12/08/18 Unknown Assessment and Plan Assessment and plan: 53-year-old man with known history of insulin-dependent diabetes, presented hyperglycemia after being unable to obtain insulin Hyperglycemic hyperosmolar nonketotic state with persistent hyperglycemia Continue IV fluids and insulin, diabetic diet Nonadherence to medications and diet Patient has been counseled on preventive health for greater than 17 minutes Pain medication seeking behavior Patient has been advised that he does not need IV morphine for her surgery to his shoulder that he had many months ago. He verbalized understanding Prophylaxis Lovenox
[2018-12-08] MEDS ORDERED: NON-FORMULARY (Dapagliflozin Propanediol [Farxiga] 10 MG) PO SCH (22:00)
[2018-12-08] MEDS ORDERED: LANTUS SUB-Q SCH (22:00)
[2018-12-08] MEDS: GLUCOPHAGE PO SCH (22:40)
[2018-12-08] MEDS: DESYREL PO SCH (22:40)
[2018-12-08] MEDS: SODIUM CHLORIDE FLUSH SYRINGE 10 ML IV SCH (22:44)
[2018-12-09] MEDS: NACL 0.45% 1000 ML 1,000 ML IV SCH ×3 (01:55→17:42)
[2018-12-09] MEDS: PERCOCET 5/325 PO PRN (02:02)
[2018-12-09] MEDS: HumaLOG SUB-Q SCH ×7 (08:47→21:24)
[2018-12-09] MEDS: GLUCOPHAGE PO SCH (09:36)
[2018-12-09] MEDS: LOVENOX SUB-Q SCH (09:36)
[2018-12-09] MEDS: SODIUM CHLORIDE FLUSH SYRINGE 10 ML IV SCH ×2 (09:37→22:01)
--- NOTE | 2018-12-09 10:19 | Progress Note ---
Assessment and Plan 1. Noncardiac chest pain. Left heart cath 2016 showed normal coronary arteries. One month ago stress thallium negative for ischemic coronary artery disease. Echocardiogram normal left ventricular size and function. 2. Hyperkalemia resolved 3. Essential hypertension 4. Type 2 diabetes mellitus presenting with hyperosmolar nonketotic hyperglycemia Plan. No forget cardiac workup indicated. Subjective Date of service: 12/09/18 Interval history: No cardiac symptoms Objective Vital Signs Temp Pulse Resp BP BP Pulse Ox 12/09/18 03:07 98.5 F 80 16 112/54 92 12/09/18 00:32 64 12/08/18 23:25 98.2 F 83 16 109/63 98 12/08/18 19:16 98.1 F 75 16 117/52 95 12/08/18 17:08 98.0 F 74 18 110/64 99 12/08/18 12:37 84 18 135/65 100 12/08/18 12:30 132/57 95 12/08/18 12:21 117/67 96 12/08/18 12:11 117/67 96 12/08/18 12:00 117/67 90 12/08/18 11:53 84 18 126/59 100 12/08/18 11:51 126/59 96 12/08/18 11:44 74 18 163/69 100 12/08/18 11:30 126/59 100 12/08/18 11:15 131/68 98 12/08/18 11:00 131/68 99 12/08/18 10:45 129/63 97 12/08/18 10:36 131/64 99 - Physical Examination General: Appears Well, No Apparent Distress HEENT: Positive: PERRL Neck: Positive: trachea midline Cardiac: Lungs: Neuro: Positive: Grossly Intact Abdomen: /Rectal: Normal Prostate, No Masses Skin: Musculoskeletal: No Fluid Collection, No Pain, Normal Range of Motion Gait: Normal Gait Extremities: Absent: edema
[2018-12-09] MEDS ORDERED: LANTUS SUB-Q ONE (11:33)
[2018-12-09] MEDS: GLUCOPHAGE XR PO SCH (18:18)
[2018-12-09] MEDS ORDERED: MILK OF MAGNESIA PO PRN (18:20)
[2018-12-09] MEDS: DESYREL PO SCH (21:23)
[2018-12-09] MEDS: LANTUS SUB-Q SCH (21:25)
[2018-12-10] MEDS: NACL 0.45% 1000 ML 1,000 ML IV SCH ×2 (01:26→10:09)
[2018-12-10] MEDS: HumaLOG SUB-Q SCH ×6 (09:15→17:47)
[2018-12-10] MEDS: GLUCOPHAGE XR PO SCH (09:16)
[2018-12-10] MEDS: LOVENOX SUB-Q SCH (10:10)
[2018-12-10] MEDS: LANTUS SUB-Q SCH (10:11)
[2018-12-10] MEDS: SODIUM CHLORIDE FLUSH SYRINGE 10 ML IV SCH (10:14)
--- NOTE | 2018-12-10 11:17 | Progress Note ---
Assessment and Plan 1. Noncardiac chest pain. Left heart cath 2016 showed normal coronary arteries. One month ago stress thallium negative for ischemic coronary artery disease. Echocardiogram normal left ventricular size and function. 2. Hyperkalemia resolved 3. Essential hypertension 4. Type 2 diabetes mellitus presenting with hyperosmolar nonketotic hyperglycemia Plan. Patient is stable and no further cardiac workup indicated Subjective Date of service: 12/10/18 Interval history: No cardiac symptoms Objective Vital Signs Temp Pulse Pulse Pulse Pulse Resp BP 12/10/18 10:00 93 H 93 H 93 H 19 12/10/18 08:50 97.7 F 74 20 109/67 12/10/18 03:41 98.2 F 93 H 16 117/57 12/09/18 23:08 98.0 F 95 H 16 105/48 12/09/18 22:00 91 H 12/09/18 19:56 98.1 F 76 16 121/67 12/09/18 17:50 98.5 F 81 16 118/44 12/09/18 12:31 98.5 F 84 14 108/55 Pulse Ox 12/10/18 10:00 98 12/10/18 08:50 97 12/10/18 03:41 92 12/09/18 23:08 97 12/09/18 22:00 12/09/18 19:56 96 12/09/18 17:50 95 12/09/18 12:31 99 - Physical Examination General: Appears Well, No Apparent Distress HEENT: Positive: PERRL Neck: Positive: trachea midline Cardiac: Positive: Regular Rate, S1/S2, S3, PMI, Laterally Displaced Lungs: Positive: Normal Breath Sounds, No Wheeze, Rales, Rhonchi Neuro: Positive: Grossly Intact Abdomen: /Rectal: Normal Prostate, No Masses Skin: Musculoskeletal: No Fluid Collection, No Pain, Normal Range of Motion Gait: Normal Gait Extremities: Absent: edema
--- NOTE | 2018-12-10 16:25 | Progress Note ---
Assessment and Plan Assessment and plan: 53-year-old man with known history of insulin-dependent diabetes, presented hyperglycemia after being unable to obtain insulin Hyperglycemic hyperosmolar nonketotic state with persistent hyperglycemia Insulin, diabetic diet,, will need his prescriptions filled prior to discharge Nonadherence to medications and diet Patient has been counseled on preventive health for greater than 17 minutes Pain medication seeking behavior Patient has been advised that he does not need IV morphine for her surgery to his shoulder that he had many months ago. He verbalized understanding Prophylaxis Lovenox History Interval history: Review of systems Constitutional: No fevers, no malaise, no joint pains CVS: No chest pain, no orthopnea, no dyspnea on exertion, no pedal edema GI: No abdominal pain, no diarrhea, no vomiting, no constipation Respiratory: no wheezing, no coughing Hospitalist Physical - Physical exam Narrative exam: General.: Appears well, no distress, nontoxic HEENT: Moist mucous membranes, extraocular muscles intact, no lymphadenopathy Neck: supple Cardiac: S1-S2 heard Lungs: clear to auscultation bilaterally Abdomen: soft , nontender, nondistended, bowel sounds positive Extremities: no edema clubbing or cyanosis Skin: no rash or lesions Neurologic: no gross focal deficits Psych: calm, and cooperative - Constitutional Vitals: Temp Pulse Resp BP Pulse Ox 98.2 F 86 18 120/63 98 12/10/18 12:00 12/10/18 14:44 12/10/18 12:00 12/10/18 12:00 12/10/18 10:00 General appearance: Present: no acute distress, well-nourished Results - Labs CBC & Chem 7: 12/08/18 06:45 12/08/18 06:45 Labs: Laboratory Last Values WBC 8.2 K/mm3 (4.5-11.0) 12/08/18 06:45 RBC 5.26 M/mm3 (3.65-5.03) H 12/08/18 06:45 Hgb 16.4 gm/dl (11.8-15.2) H 12/08/18 06:45 Hct 49.2 % (35.5-45.6) H 12/08/18 06:45 MCV 94 fl (84-94) 12/08/18 06:45 MCH 31 pg (28-32) 12/08/18 06:45 MCHC 33 % (32-34) 12/08/18 06:45 RDW 13.7 % (13.2-15.2) 12/08/18 06:45 Plt Count 162 K/mm3 (140-440) 12/08/18 06:45 Lymph % (Auto) 22.4 % (13.4-35.0) 12/08/18 06:45 [place] % (Auto) 5.7 % (0.0-7.3) 12/08/18 06:45 Eos % (Auto) 0.6 % (0.0-4.3) 12/08/18 06:45 Baso % (Auto) 0.6 % (0.0-1.8) 12/08/18 06:45 Lymph # 1.8 K/mm3 (1.2-5.4) 12/08/18 06:45 [place] # 0.5 K/mm3 (0.0-0.8) 12/08/18 06:45 Eos # 0.1 K/mm3 (0.0-0.4) 12/08/18 06:45 Baso # 0.0 K/mm3 (0.0-0.1) 12/08/18 06:45 Seg Neutrophils % 70.7 % (40.0-70.0) H 12/08/18 06:45 Seg Neutrophils # 5.8 K/mm3 (1.8-7.7) 12/08/18 06:45 PT 14.1 Sec. (12.2-14.9) 12/08/18 07:13 INR 1.12 (0.87-1.13) 12/08/18 07:13 APTT 24.7 Sec. (24.2-36.6) 12/08/18 07:13 497.07 ng/mlDDU (0-234) H 12/08/18 07:13 VBG pH 7.375 (7.320-7.420) 12/08/18 06:45 Sodium 128 mmol/L (137-145) L 12/08/18 06:45 Potassium 5.2 mmol/L (3.6-5.0) H 12/08/18 06:45 Chloride 87.5 mmol/L (98-107) L 12/08/18 06:45 Carbon Dioxide 23 mmol/L (22-30) 12/08/18 06:45 23 mmol/L 12/08/18 06:45 BUN 10 mg/dL (9-20) 12/08/18 06:45 1.0 mg/dL (0.8-1.5) 12/08/18 06:45 Estimated GFR > 60 ml/min 12/08/18 06:45 10 % 12/08/18 06:45 Glucose 971 mg/dL (75-100) H* 12/08/18 06:45 POC Glucose 164 (70-105) H 12/10/18 15:44 16.5 % (4-6) H 12/09/18 04:29 Calcium 9.5 mg/dL (8.4-10.2) 12/08/18 06:45 Magnesium 2.00 mg/dL (1.7-2.3) 12/08/18 06:52 1.00 mg/dL (0.1-1.2) 12/08/18 06:52 0.3 mg/dL (0-0.2) H 12/08/18 06:52 0.7 mg/dL 12/08/18 06:52 AST 56 units/L (5-40) H 12/08/18 06:52 ALT 83 units/L (7-56) H 12/08/18 06:52 150 units/L (35-129) H 12/08/18 06:52 51 units/L (55-170) L 12/08/18 06:52 CK-MB (CK-2) 1.7 ng/mL (0.0-4.0) 12/08/18 06:52 CK-MB (CK-2) Rel Index 3.3 (0-4) 12/08/18 06:52 < 0.010 ng/mL (0.00-0.029) 12/08/18 14:23 NT-Pro-B Natriuret Pep 20.77 pg/mL (0-900) 12/08/18 06:52 7.3 g/dL (6.3-8.2) 12/08/18 06:52 4.0 g/dL (3.9-5) 12/08/18 06:52 1.2 % 12/08/18 06:52 Colorless (Yellow) 12/08/18 Unknown Clear (Clear) 12/08/18 Unknown 6.0 (5.0-7.0) 12/08/18 Unknown Ur Specific [place] 1.032 (1.003-1.030) H 12/08/18 Unknown <15 mg/dl mg/dL (Negative) 12/08/18 Unknown >=500 mg/dL (Negative) 12/08/18 Unknown Neg mg/dL (Negative) 12/08/18 Unknown Neg (Negative) 12/08/18 Unknown Neg (Negative) 12/08/18 Unknown Neg (Negative) 12/08/18 Unknown < 2.0 mg/dL (<2.0) 12/08/18 Unknown Ur Leukocyte Esterase Neg (Negative) 12/08/18 Unknown < 1.0 /HPF (0.0-6.0) 12/08/18 Unknown 1.0 /HPF (0.0-6.0) 12/08/18 Unknown Active Medications - Current Medications Current Medications: Generic Name Dose Route Start Last Admin Trade Name Freq PRN Reason Stop Dose Admin Acetaminophen 650 mg 12/08/18 10:38 Tylenol PO Q4H PRN Pain MILD(1-3)/Fever >100.5/GARCIA Atorvastatin Calcium 40 mg 12/08/18 22:00 12/09/18 21:23 Lipitor PO 40 mg QHS YENY Administration Dextrose 50 ml 12/08/18 10:27 D50w (25gm) Syringe IV PRN PRN Hypoglycemia Enoxaparin Sodium 40 mg 12/09/18 10:00 12/10/18 10:10 Lovenox SUB-Q 40 mg QDAY YENY Administration Sodium Chloride 1,000 mls @ 125 mls/hr 12/08/18 12:00 12/10/18 10:09 Nacl 0.45% 1000 Ml IV 125 mls/hr DIRECT YENY Administration Insulin Glargine 50 units 12/09/18 22:00 12/10/18 10:11 Lantus SUB-Q 50 units BID YENY Administration Insulin Human Lispro 0 unit 12/08/18 11:30 12/10/18 13:19 Humalog SUB-Q 2 unit ACHS YENY Administration Protocol Insulin Human Lispro 25 unit 12/09/18 22:52 12/10/18 13:19 Humalog SUB-Q 25 unit AC YENY Administration Magnesium Hydroxide 30 ml 12/09/18 18:20 Milk Of Magnesia PO Q4H PRN Constipation Metformin HCl 1,000 mg 12/09/18 18:00 12/10/18 09:16 Glucophage Xr PO 1,000 mg QDDIAB YENY Administration Miscellaneous Medication 10 mg 12/08/18 22:00 Dapagliflozin Propanediol [Farxiga] PO BID YENY Ondansetron HCl 4 mg 12/08/18 10:38 Zofran IV Q8H PRN Nausea And Vomiting Oxycodone/Acetaminophen 2 tab 12/08/18 10:24 12/09/18 02:02 Percocet 5/325 PO 2 tab Q6H PRN Administration Pain , Severe (7-10) Sodium Chloride 10 ml 12/08/18 22:00 12/10/18 10:14 Sodium Chloride Flush Syringe 10 Ml IV 10 ml BID YENY Administration Sodium Chloride 10 ml 12/08/18 10:38 Sodium Chloride Flush Syringe 10 Ml IV PRN PRN LINE FLUSH Trazodone HCl 100 mg 12/08/18 22:00 12/09/18 21:23 Desyrel PO 100 mg QHS YENY Administration Nutrition/Malnutrition Assess - Dietary Evaluation Nutrition/Malnutrition Findings: Nutrition Notes Start: 12/09/18 11:32 Freq: Status: Active Protocol: Document 12/09/18 11:32 LP (Rec: 12/09/18 11:35 LP [email or web address]) Nutrition Notes Need for Assessment generated from: MD Order,Education Initial or Follow up Brief Note Current Diagnosis Diabetes,Hypertension,Heart Failure Labs/Tests A1c 16.5 Subjective/Other Information Consult for diet education. Pt states being educated but not fully understanding what to eat. Pt and educated. Pt states eating well. A1c worsened since originally diagnosed a month ago. #1 Nutrition Diagnosis Food and nutrition-related knowledge deficit Etiology DM diet As Evidenced by Signs and Symptoms Pt states not understanding what to eat, A1c 16.5 Nutrition Intervention Teaching Recipient Patient,Spouse Learning Readiness Good Teaching Methods Discussion,Handout Response to Teaching Verbalize understanding Education Handouts Provided Consistent CHO diet Barriers to Learning No Barriers RD phone number provided Yes Patient aware of follow up options Yes Revisit per MD consult or patient Sign Off request:
--- NOTE | 2018-12-10 16:27 | Discharge Summary ---
Providers - Providers Date of Admission: 12/08/18 10:38 Attending physician: ADELE ADDISON MD 12/08/18 10:27 Consult to Dietitian/Nutrition [CONS] Routine Physician Instructions: Reason For Exam: Reason for Consult: Diet education 12/08/18 11:33 Consult to Physician [CONS] Routine Comment: Consulting Provider: MADDIE RODRIGUEZ Physician Instructions: Reason For Exam: chest pain Primary care physician: CORNELL MEDINA Hospitalization Condition: Stable Hospital course: 53-year-old man with known history of insulin-dependent diabetes, presented hyperglycemia after being unable to obtain insulin Hyperglycemic hyperosmolar nonketotic state with persistent hyperglycemia Insulin, diabetic diet,, will need his prescriptions filled prior to discharge Nonadherence to medications and diet Patient has been counseled on preventive health for greater than 17 minutes Pain medication seeking behavior Patient has been advised that he does not need IV morphine for her surgery to his shoulder that he had many months ago. He verbalized understanding Prophylaxis Lovenox Disposition: DC- TO HOME OR SELFCARE Time spent for discharge: 33 mins Core Measure Documentation - Palliative Care Palliative Care/ Comfort Measures: Not Applicable - Core Measures Any of the following diagnoses?: none Exam - Constitutional Vitals: Temp Pulse Resp BP Pulse Ox 98.2 F 86 18 120/63 98 12/10/18 12:00 12/10/18 14:44 12/10/18 12:00 12/10/18 12:00 12/10/18 10:00 General appearance: Present: no acute distress, well-nourished - EENT Eyes: Present: PERRL ENT: hearing intact, clear oral mucosa - Neck Neck: Present: supple, normal ROM - Respiratory Respiratory effort: normal Respiratory: bilateral: CTA - Cardiovascular Heart Sounds: Present: S1 & S2. Absent: rub, click - Extremities Extremities: pulses symmetrical, No edema Peripheral Pulses: within normal limits - Abdominal General gastrointestinal: Present: soft, non-tender, non-distended, normal bowel sounds Male genitourinary: Present: normal - Integumentary Integumentary: Present: clear, warm, dry - Musculoskeletal Musculoskeletal: gait normal, strength equal bilaterally - Psychiatric Psychiatric: appropriate mood/affect, intact judgment & insight - Neurologic Neurologic: CNII-XII intact, moves all extremities Plan Follow up with: PRIMARY CARE, [Referring] - 3-5 Days Prescriptions: traZODone [Desyrel] 100 mg PO QHS #30 tablet AtorvaSTATin [Lipitor] 40 mg PO QHS #30 tablet Dapagliflozin Propanediol [Farxiga] 10 mg PO BID #60 metFORMIN XR [Glucophage XR] 1,000 mg PO QDDIAB #60 tablet Lispro Insulin [HumaLOG] 25 unit SUB-Q AC 30 Days units Insulin Glargine [Lantus VIAL] 50 units SUB-Q BID 30 Days units Gabapentin [Neurontin] 300 mg PO Q8HR #90 capsule oxyCODONE /ACETAMINOPHEN [Percocet 5/325 mg] 2 tab PO Q6H PRN #14 tablet PRN Reason: Pain , Severe (7-10)
[2018-12-10 18:02] VITALS: BP 116/57
== END 2018-12-10 18:25 | disposition home or self-care (01) | DRG 639 ==
LOC: ED 06:32 → 4A 10:38 → OBSVTOIN 12-10 12:46
PROVIDERS: ADMIT Internal Medicine; ATTEND Internal Medicine
DX: E11.00 Type 2 diabetes mellitus with hyperosmolarity without nonketotic hyperglycemic-hyperosmolar coma (NKHHC) (principal); R07.89 Other chest pain; E87.5 Hyperkalemia; M19.90 Unspecified osteoarthritis, unspecified site; I11.0 Hypertensive heart disease with heart failure; I50.9 Heart failure, unspecified; F17.200 Nicotine dependence, unspecified, uncomplicated; Z91.14 Patient's other noncompliance with medication regimen; Z65.8 Other specified problems related to psychosocial circumstances; Z79.4 Long term (current) use of insulin; Z83.3 Family history of diabetes mellitus; Z88.5 Allergy status to narcotic agent; Z79.899 Other long term (current) drug therapy
CPT/HCPCS: 36415; 71045; 71275; 80048; 80076; 81001; 82550; 82553; 82805; 82962; 83036; 83735; 83880; 84484; 85025; 85379; 85610; 85730; 87116; 93005; 93010; 96361; 96374; 96375; G0378; A9270-GY; J1650; J1815; J2270; J2405; J7030; Q9967

== ENCOUNTER 2020-02-15 16:11 | Emergency (ER) | payer SELFPAY | END 2020-02-15 21:38 | disposition left against medical advice (07) | LOC: ED 16:11 | DX: R07.89 Other chest pain (principal); Z53.21 Procedure and treatment not carried out due to patient leaving prior to being seen by health care provider | CPT/HCPCS: 82962; 93005 ==

== ENCOUNTER 2021-04-16 15:23 | Inpatient (IN) | payer SELFPAY ==
[2021-04-16] MEDS ORDERED: SODIUM CHLORIDE 0.9% 500 ML 500 ML IV ONE (15:59)
[2021-04-16] MEDS ORDERED: MORPHINE 4 MG/1 ML INJ IV ONE (16:00)
--- NOTE | 2021-04-16 16:11 | Emergency Department Report ---
HPI - General Chief Complaint: Hyperglycemia Time Seen by Provider: 04/16/21 15:35 - HPI HPI: 56-year-old -[place] male presents to the emergency department with a complaint of a syncopal episode yesterday that caused him to have chest and back pain. Patient also complains of uncontrolled blood sugar as he has been out of his insulin for 2 days and Metformin for 2 weeks. Patient says that starting today he began having a generalized headache and feeling short of breath. He also has a history of CHF and a remote history of lymphoma for which he is in remission. He has not taken anything for symptoms prior to presentation today. No recent travel or sick contacts at home. He denies any fever, vision change, slurred speech, numbness or paresthesias, lower extremity edema. He does not currently have a primary care physician. ED Past Medical Hx - Past Medical History Previous Medical History?: Yes Hx Hypertension: Yes Hx Heart Attack/AMI: No Hx Congestive Heart Failure: Yes Hx Diabetes: Yes Hx Liver Disease: No Hx Renal Disease: No Hx of Cancer: (lymphoma/remission) Hx Arthritis: Yes Hx HIV: No - Surgical History Additional Surgical History: Hernia repair , Left rotator Cuff - Social History Smoking Status: Current Some Day Smoker Substance Use Type: Alcohol - Medications Home Medications: Home Medications Medication Instructions Recorded Confirmed Last Taken Type AtorvaSTATin [Lipitor] 40 mg PO QHS #30 tablet 12/10/18 Unknown Rx Dapagliflozin Propanediol [Farxiga] 10 mg PO BID #60 12/10/18 Unknown Rx Gabapentin 300 mg PO Q8HR #90 capsule 12/10/18 Unknown Rx Insulin Glargine [Lantus VIAL] 50 units SUB-Q BID 30 Days units 12/10/18 Unknown Rx Lispro Insulin [HumaLOG] 25 unit SUB-Q AC 30 Days units 12/10/18 Unknown Rx metFORMIN XR [Glucophage XR] 1,000 mg PO QDDIAB #60 tablet 12/10/18 Unknown Rx oxyCODONE /ACETAMINOPHEN [Percocet 2 tab PO Q6H PRN #14 tablet 12/10/18 Unknown Rx 5/325 mg] traZODone [Desyrel] 100 mg PO QHS #30 tablet 12/10/18 Unknown Rx Insulin Aspart (Nf) [NovoLOG 25 units SQ AC #5 pen 12/11/18 Unknown Rx Flexpen] Insulin Glargine,Hum.rec.anlog 50 unit SQ BID #5 insuln.pen 12/11/18 Unknown Rx [Basaglar Tiannaikpen U-100] Pen Needle, Diabetic [1St Tier 1 each ACHS #100 dis.needle 12/11/18 Unknown Rx Unifine Pentips Plus] ED Review of Systems ROS: Stated complaint: HYPERGLYCEMIA Other details as noted in HPI Comment: All other systems reviewed and negative Constitutional: weakness. denies: chills, fever Eyes: denies: eye pain, vision change ENT: denies: ear pain, throat pain Respiratory: shortness of breath. denies: cough Cardiovascular: chest pain, syncope. denies: edema Endocrine: increased thirst, increased urine Gastrointestinal: denies: abdominal pain, vomiting Genitourinary: frequency. denies: dysuria, discharge Musculoskeletal: back pain Skin: denies: rash, lesions Neurological: headache. denies: numbness, paresthesias Physical Exam - Physical Exam Vital Signs: Vital Signs 04/16/21 15:51 Temperature 99.0 F Pulse Rate 98 H Respiratory 16 Rate Blood Pressure 108/70 O2 Sat by Pulse 98 Oximetry Physical Exam: GENERAL: The patient is well-developed well-nourished. HENT: Normocephalic. Atraumatic. Patient has moist mucous membranes. EYES: Extraocular motions are intact. Pupils equal reactive to light bilaterally. No nystagmus. NECK: Supple. Trachea is midline. CHEST/LUNGS: Clear to auscultation. There is no respiratory distress noted. There is some reproducible chest wall tenderness to palpation. No crepitus or deformity. HEART/CARDIOVASCULAR: Regular. There is no tachycardia. There is no murmur. ABDOMEN: Abdomen is soft, nontender. Patient has normal bowel sounds. There is no abdominal distention. SKIN: Skin is warm and dry. NEURO: The patient is awake, alert, and oriented. The patient is cooperative. The patient has no focal neurologic deficits. Normal speech. Cranial nerves II through XII grossly intact. No facial asymmetry. No pronator drift or dysmetria. MUSCULOSKELETAL: There is no tenderness or deformity. There is no limitation range of motion. BACK: There is midline and bilateral paraspinal lumbar tenderness to palpation. ED Course Vital Signs 04/16/21 15:51 Temperature 99.0 F Pulse Rate 98 H Respiratory 16 Rate Blood Pressure 108/70 O2 Sat by Pulse 98 Oximetry ED Medical Decision Making - Lab Data Result diagrams: 04/16/21 23:42 04/16/21 23:42 Lab Results 04/16/21 04/16/21 04/16/21 Range/Units 16:03 16:03 16:03 WBC 8.6 (4.5-11.0) K/mm3 RBC 5.62 H (3.65-5.03) M/mm3 Hgb 16.1 H (11.8-15.2) gm/dl Hct 49.7 H (35.5-45.6) % MCV 89 (84-94) fl MCH 29 (28-32) pg MCHC 32 (32-34) % RDW 13.4 (13.2-15.2) % Plt Count 174 (140-440) K/mm3 Lymph % (Auto) 14.9 (13.4-35.0) % [place] % (Auto) 10.6 H (0.0-7.3) % Eos % (Auto) 0.2 (0.0-4.3) % Baso % (Auto) 0.3 (0.0-1.8) % Lymph # (Auto) 1.3 (1.2-5.4) K/mm3 [place] # (Auto) 0.9 H (0.0-0.8) K/mm3 Eos # (Auto) 0.0 (0.0-0.4) K/mm3 Baso # (Auto) 0.0 (0.0-0.1) K/mm3 Seg Neutrophils % 74.0 H (40.0-70.0) % Seg Neutrophils # 6.4 (1.8-7.7) K/mm3 D-Dimer 722.60 H (0-234) ng/mlDDU VBG pH (7.320-7.420) Sodium 131 L (137-145) mmol/L Potassium 3.9 (3.6-5.0) mmol/L Chloride 92.8 L (98-107) mmol/L Carbon Dioxide 22 (22-30) mmol/L Anion Gap 20 mmol/L BUN 6 L (9-20) mg/dL Creatinine 0.8 (0.8-1.3) mg/dL Estimated GFR > 60 ml/min BUN/Creatinine Ratio 8 % Glucose 402 H (75-100) mg/dL POC Glucose (70-105) mg/dL Calcium 8.8 (8.4-10.2) mg/dL Total Bilirubin 0.60 (0.1-1.2) mg/dL AST 42 H (5-40) units/L ALT 44 (7-56) units/L Alkaline Phosphatase 161 H (35-129) units/L Troponin T < 0.010 (0.00-0.029) ng/mL Total Protein 7.3 (6.3-8.2) g/dL Albumin 3.8 L (3.9-5) g/dL Albumin/Globulin Ratio 1.1 % TSH (0.270-4.200) mlU/mL 04/16/21 04/16/21 04/16/21 Range/Units 16:03 16:03 16:40 WBC (4.5-11.0) K/mm3 RBC (3.65-5.03) M/mm3 Hgb (11.8-15.2) gm/dl Hct (35.5-45.6) % MCV (84-94) fl MCH (28-32) pg MCHC (32-34) % RDW (13.2-15.2) % Plt Count (140-440) K/mm3 Lymph % (Auto) (13.4-35.0) % [place] % (Auto) (0.0-7.3) % Eos % (Auto) (0.0-4.3) % Baso % (Auto) (0.0-1.8) % Lymph # (Auto) (1.2-5.4) K/mm3 [place] # (Auto) (0.0-0.8) K/mm3 Eos # (Auto) (0.0-0.4) K/mm3 Baso # (Auto) (0.0-0.1) K/mm3 Seg Neutrophils % (40.0-70.0) % Seg Neutrophils # (1.8-7.7) K/mm3 D-Dimer (0-234) ng/mlDDU VBG pH 7.405 (7.320-7.420) Sodium (137-145) mmol/L Potassium (3.6-5.0) mmol/L Chloride (98-107) mmol/L Carbon Dioxide (22-30) mmol/L Anion Gap mmol/L BUN (9-20) mg/dL Creatinine (0.8-1.3) mg/dL Estimated GFR ml/min BUN/Creatinine Ratio % Glucose (75-100) mg/dL POC Glucose 349 H (70-105) mg/dL Calcium (8.4-10.2) mg/dL Total Bilirubin (0.1-1.2) mg/dL AST (5-40) units/L ALT (7-56) units/L Alkaline Phosphatase (35-129) units/L Troponin T (0.00-0.029) ng/mL Total Protein (6.3-8.2) g/dL Albumin (3.9-5) g/dL Albumin/Globulin Ratio % TSH 1.050 (0.270-4.200) mlU/mL // Range/Units 18:28 WBC (4.5-11.0) K/mm3 RBC (3.65-5.03) M/mm3 Hgb (11.8-15.2) gm/dl Hct (35.5-45.6) % MCV (84-94) fl MCH (28-32) pg MCHC (32-34) % RDW (13.2-15.2) % Plt Count (140-440) K/mm3 Lymph % (Auto) (13.4-35.0) % [place] % (Auto) (0.0-7.3) % Eos % (Auto) (0.0-4.3) % Baso % (Auto) (0.0-1.8) % Lymph # (Auto) (1.2-5.4) K/mm3 [place] # (Auto) (0.0-0.8) K/mm3 Eos # (Auto) (0.0-0.4) K/mm3 Baso # (Auto) (0.0-0.1) K/mm3 Seg Neutrophils % (40.0-70.0) % Seg Neutrophils # (1.8-7.7) K/mm3 D-Dimer (0-234) ng/mlDDU VBG pH (7.320-7.420) Sodium (137-145) mmol/L Potassium (3.6-5.0) mmol/L Chloride (98-107) mmol/L Carbon Dioxide (22-30) mmol/L Anion Gap mmol/L BUN (9-20) mg/dL Creatinine (0.8-1.3) mg/dL Estimated GFR ml/min BUN/Creatinine Ratio % Glucose (75-100) mg/dL POC Glucose 281 H (70-105) mg/dL Calcium (8.4-10.2) mg/dL Total Bilirubin (0.1-1.2) mg/dL AST (5-40) units/L ALT (7-56) units/L Alkaline Phosphatase (35-129) units/L Troponin T (0.00-0.029) ng/mL Total Protein (6.3-8.2) g/dL Albumin (3.9-5) g/dL Albumin/Globulin Ratio % TSH (0.270-4.200) mlU/mL - EKG Data -: EKG Interpreted by Me EKG shows normal: sinus rhythm, axis, intervals (Prolonged QTC), QRS complexes (Q waves to the septal and anterior leads), ST-T waves Rate: normal - EKG Data When compared to previous EKG there are: changes noted (Previous EKG did not show prolonged QTC and Q waves were mostly just septal) Interpretation: other (Sinus rhythm at 91 bpm, normal axis, prolonged QTC, q waves to the anterior and septal leads) - Radiology Data Radiology results: report reviewed, image reviewed interpreted by me: Chest x-ray does not show any acute process. There are no pleural effusions, obvious pneumonia and there is no pneumothorax. CTA CHEST WITH IV CONTRAST INDICATION: Syncope, elevated dimer. TECHNIQUE: A xial CT images were obtained through the chest after injection of IV contrast. 3 plane MIP reconstructions were produced. All CT scans at this location are performed using CT dose reduction for ALARA by means of automated exposure control. COMPARISON: CT 12/08/2018. FINDINGS: Pulmonary Arteries: No pulmonary emboli. Thoracic Aorta: No acute abnormality. Heart: Normal. Lungs: No acute air space or interstitial disease. Pleura: No pleural effusion. No pneumothorax. Lymph Nodes: No significant adenopathy. Additional Findings: None. Upper Abdomen: No acute findings. Skeletal Structures: No significant osseous abnormality. IMPRESSION: 1. No CT evidence for pulmonary embolism. 2. No acute findings. CT HEAD WITHOUT CONTRAST INDICATION / CLINICAL INFORMATION: headache, Syncope. TECHNIQUE: All CT scans at this location are performed using CT dose reduction for ALARA by means of automated exposure control. COMPARISON: Head CT 11/08/2018 FINDINGS: HEMORRHAGE: No evidence of intracranial hemorrhage or extra-axial fluid collection. EXTRA-AXIAL SPACES: Cortical sulci, sylvian fissures and b asilar cisterns have an unremarkable appearance. VENTRICULAR SYSTEM: The third and lateral ventricles are of normal size and configuration. CEREBRAL PARENCHYMA: No areas of abnormal brain parenchymal attenuation are identified. There is no indication of recent infarction. MIDLINE SHIFT OR HERNIATION: There is no mass effect. CEREBELLUM / BRAINSTEM: Brainstem and cerebellum have an unremarkable appearance. MIDLINE STRUCTURES:No abnormalities of the pituitary gland or pineal region are identified. INTRACRANIAL VESSELS:No abnormalities are identified on this noncontrast head CT. ORBITS: visualized portions of the orbits have an unremarkable appearance. SOFT TISSUES of HEAD: No significant abnormality. CALVARIUM: Evaluation of bone windows reveals no abnormalities. PARANASAL SINUSES / MASTOID AIR CELLS: Visualized portions of the paranasal sinuses are free from inflammatory mucosal disease. Mastoid air cells are normally pneumatized. ADDITIONAL FINDINGS: None. IMPRESSION: 1. No significant abnormalities are identified on head CT without contrast. No interval change. - Medical Decision Making This patient presents to the emergency department with a complaint of chest pain and headache starting after a syncopal episode yesterday. Patient also complains of having elevated and uncontrolled blood sugar. EKG does not have any morphology consistent with ST elevation myocardial infarction. Chest x-ray does not show any pneumonia, pleural effusions, pneumothorax, widened mediastinum, or any other acute process. Patient does have a blood sugar of 400 but there is no venous acidosis or significant elevation in the anion gap and therefore this is not concerning for diabetic ketoacidosis. The patient was given a dose of insulin and the blood sugar came down to a more reasonable level. First troponin negative. The patient did have an elevated D-dimer level, so along with the syncopal episode and chest pain the patient had a CT angiography of the chest that did not show any evidence of pulmonary embolism or dissection. CT of the head did not show any large vessel occlusion, hemorrhage, or any other acute process. He will be admitted to the hospital for further evaluation and treatment and was accepted for admission by the hospitalist. Critical Care Time: No Critical care attestation.: If time is entered above; I have spent that time in minutes in the direct care of this critically ill patient, excluding procedure time. ED Disposition Clinical Impression: Syncope, Acute chest pain, Hyperglycemia due to type 1 diabetes mellitus Disposition: 09 ADMITTED INPATIENT Is pt being admited?: Yes Condition: Fair
--- NOTE | 2021-04-16 16:24 | XRay Report ---
CHEST 1 VIEW 04/16/2021 4:11 PM INDICATION / CLINICAL INFORMATION: CP. COMPARISON: 12/08/2018. FINDINGS: SUPPORT DEVICES: None. HEART / MEDIASTINUM: No significant abnormality. LUNGS / PLEURA: No significant pulmonary or pleural abnormality. No pneumothorax. ADDITIONAL FINDINGS: No significant additional findings. IMPRESSION: No acute abnormality. Signer Name: Noam Santo MD Signed: 04/16/2021 4:20 PM Workstation Name: [id number]
[2021-04-16 16:36] LABS: Basophils % (Auto) 0.3 % (0.0-1.8); Eosinophils % (Auto) 0.2 % (0.0-4.3); Hematocrit 49.7 % (35.5-45.6); Hemoglobin 16.1 gm/dl (11.8-15.2); Lymphocytes # (Auto) 1.3 K/mm3 (1.2-5.4); Lymphocytes % (Auto) 14.9 % (13.4-35.0); Mean Corpuscular HGB Conc 32 % (32-34); Mean Corpuscular Volume 89 fl (84-94); Monocytes # (Auto) 0.9 K/mm3 (0.0-0.8); Monocytes % (Auto) 10.6 % (0.0-7.3); Platelet Count 174 K/mm3 (140-440); Red Blood Count 5.62 M/mm3 (3.65-5.03); Red Cell Distribution Width 13.4 % (13.2-15.2)
[2021-04-16 16:43] LABS: Alanine Aminotransferase 44 units/L (7-56); Albumin 3.8 g/dL (3.9-5); BUN/Creatinine Ratio 8; Blood Urea Nitrogen 6 mg/dL (9-20); Calcium 8.8 mg/dL (8.4-10.2); Hemolysis Index 15
[2021-04-16] MEDS ORDERED: INSULIN REGULAR, HUMAN 100 UNITS/1 ML IV ONE (17:07)
--- NOTE | 2021-04-16 19:44 | Cat Scan Report ---
CT HEAD WITHOUT CONTRAST INDICATION / CLINICAL INFORMATION: headache, Syncope. TECHNIQUE: All CT scans at this location are performed using CT dose reduction for ALARA by means of automated e xposure control. COMPARISON: Head CT 11/08/2018 FINDINGS: HEMORRHAGE: No evidence of intracranial hemorrhage or extra-axial fluid collection. EXTRA-AXIAL SPACES: Cortical sulci, sylvian fissures and basilar cisterns have an unremarkable appear ance. VENTRICULAR SYSTEM: The third and lateral ventricles are of normal size and configuration. CEREBRAL PARENCHYMA: No areas of abnormal brain parenchymal attenuation are identified. There is no i ndication of recent infarction. MIDLINE SHIFT OR HERNIATION: There is no mass effect. CEREBELLUM / BRAINSTEM: Brainstem and cerebellum have an unremarkable appearance. MIDLINE STRUCTURES:No abnormalities of the pituitary gland or pineal region are identified. INTRACRANIAL VESSELS:No abnormalities are identified on this noncontrast head CT. ORBITS: visualized portions of the orbits have an unremarkable appearance. SOFT TISSUES of HEAD: No significant abnormality. CALVARIUM: Evaluation of bone windows reveals no abnormalities. PARANASAL SINUSES / MASTOID AIR CELLS: Visualized portions of the paranasal sinuses are free from inf lammatory mucosal disease. Mastoid air cells are normally pneumatized. ADDITIONAL FINDINGS: None. IMPRESSION: 1. No significant abnormalities are identified on head CT without contrast. No interval change. Signer Name: Scott Curtis MD Signed: 04/16/2021 7:40 PM Workstation Name: [id number]
--- NOTE | 2021-04-16 20:13 | Cat Scan Report ---
CTA CHEST WITH IV CONTRAST INDICATION: Syncope, elevated dimer. TECHNIQUE: Axial CT images were obtained through the chest after injection of IV contrast. 3 plane MIP reconstru ctions were produced. All CT scans at this location are performed using CT dose reduction for ALARA b y means of automated exposure control. COMPARISON: CT 12/08/2018. FINDINGS: Pulmonary Arteries: No pulmonary emboli. Thoracic Aorta: No acute abnormality. Heart: Normal. Lungs: No acute air space or interstitial disease. Pleura: No pleural effusion. No pneumothorax. Lymph Nodes: No significant adenopathy. Additional Findings: None. Upper Abdomen: No acute findings. Skeletal Structures: No significant osseous abnormality. IMPRESSION: 1. No CT evidence for pulmonary embolism. 2. No acute findings. Signer Name: Julian Le MD Signed: 04/16/2021 8:08 PM Workstation Name: [id number]
[2021-04-16] MEDS ORDERED: NITROGLYCERIN 0.4 MG TAB SUBL SL PRN (22:14)
[2021-04-16] MEDS ORDERED: DEXTROSE 50% IN WATER (25GM) 50 ML SYRINGE IV PRN (22:14)
[2021-04-16] MEDS ORDERED: ACETAMINOPHEN 325 MG TAB PO PRN (22:14)
--- NOTE | 2021-04-16 22:25 | History and Physical Report ---
History of Present Illness Date of examination: 04/16/21 Date of admission: 04/16/21 Chief complaint: Syncope Chest pain Hyperglycemia History of present illness: 56-year-old -[place] male with history of CHF and lymphoma was brought to the emergency department with a complaint of a syncopal episode yesterday that caused him to have chest and back pain. Patient also complains of uncontrolled blood sugar as he has been out of his insulin for 2 days and Me tformin for 2 weeks. Patient says that starting today he began having a generalized headache and feeling short of breath. He has not taken anything for symptoms prior to presentation today. No recent travel or sick contacts at home. He denies any fever, vision change, slurred speech, numbness or paresthesias, lower extremity edema. He does not currently have a primary care physician. In the emergency room initial cardiac enzyme is negative troponin is 0.010, blood glucose is 402, CT head shows no acute intracranial abnormality we will going to admit the patient we will put the patient on chest pain pathway Past History Past Medical History: diabetes, heart failure, other Medications and Allergies Allergies Allergy/AdvReac Type Severity Reaction Status Date / Time codeine Allergy Hives Verified 09/13/18 16:17 Home Medications Medication Instructions Recorded Confirmed Last Taken Type AtorvaSTATin [Lipitor] 40 mg PO QHS #30 tablet 12/10/18 Unknown Rx Dapagliflozin Propanediol [Farxiga] 10 mg PO BID #60 12/10/18 Unknown Rx Gabapentin 300 mg PO Q8HR #90 capsule 12/10/18 Unknown Rx Insulin Glargine [Lantus VIAL] 50 units SUB-Q BID 30 Days units 12/10/18 Unknown Rx Lispro Insulin [HumaLOG] 25 unit SUB-Q AC 30 Days units 12/10/18 Unknown Rx metFORMIN XR [Glucophage XR] 1,000 mg PO QDDIAB #60 tablet 12/10/18 Unknown Rx oxyCODONE /ACETAMINOPHEN [Percocet 2 tab PO Q6H PRN #14 tablet 12/10/18 Unknown Rx 5/325 mg] traZODone [Desyrel] 100 mg PO QHS #30 tablet 12/10/18 Unknown Rx Insulin Aspart (Nf) [NovoLOG 25 units SQ AC #5 pen 12/11/18 Unknown Rx Flexpen] Insulin Glargine,Hum.rec.anlog 50 unit SQ BID #5 insuln.pen 12/11/18 Unknown Rx [Basaglar Alyssapen U-100] Pen Needle, Diabetic [1St Tier 1 each ACHS #100 dis.needle 12/11/18 Unknown Rx Unifine Pentips Plus] Review of Systems All systems: negative Cardiovascular: chest pain Musculoskeletal: low back pain Exam - Constitutional Vitals: Temp Pulse Resp BP Pulse Ox 99.0 F 86 13 141/67 96 04/16/21 15:51 04/16/21 21:17 04/16/21 21:17 04/16/21 21:17 04/16/21 21:17 General appearance: Present: no acute distress, well-nourished - EENT Eyes: Present: PERRL ENT: hearing intact, clear oral mucosa - Neck Neck: Present: supple, normal ROM - Respiratory Respiratory effort: normal Respiratory: bilateral: diminished - Cardiovascular Heart Sounds: Present: S1 & S2. Absent: rub, click - Extremities Extremities: pulses symmetrical, No edema Peripheral Pulses: within normal limits - Abdominal General gastrointestinal: Present: soft, non-tender, non-distended, normal bowel sounds Male genitourinary: Present: normal - Integumentary Integumentary: Present: clear, warm, dry - Musculoskeletal Musculoskeletal: gait normal, strength equal bilaterally - Psychiatric Psychiatric: appropriate mood/affect, intact judgment & insight - Neurologic Neurologic: CNII-XII intact, moves all extremities HEART Score - HEART Score Troponin: Troponin T < 0.010 ng/mL (0.00-0.029) 04/16/21 16:03 Results - Labs CBC & Chem 7: 04/16/21 16:03 04/16/21 16:03 Labs: Laboratory Last Values WBC 8.6 K/mm3 (4.5-11.0) 04/16/21 16:03 RBC 5.62 M/mm3 (3.65-5.03) H 04/16/21 16:03 Hgb 16.1 gm/dl (11.8-15.2) H 04/16/21 16:03 Hct 49.7 % (35.5-45.6) H 04/16/21 16:03 MCV 89 fl (84-94) 04/16/21 16:03 MCH 29 pg (28-32) 04/16/21 16:03 MCHC 32 % (32-34) 04/16/21 16:03 RDW 13.4 % (13.2-15.2) 04/16/21 16:03 Plt Count 174 K/mm3 (140-440) 04/16/21 16:03 Lymph % (Auto) 14.9 % (13.4-35.0) 04/16/21 16:03 [place] % (Auto) 10.6 % (0.0-7.3) H 04/16/21 16:03 Eos % (Auto) 0.2 % (0.0-4.3) 04/16/21 16:03 Baso % (Auto) 0.3 % (0.0-1.8) 04/16/21 16:03 Lymph # (Auto) 1.3 K/mm3 (1.2-5.4) 04/16/21 16:03 [place] # (Auto) 0.9 K/mm3 (0.0-0.8) H 04/16/21 16:03 Eos # (Auto) 0.0 K/mm3 (0.0-0.4) 04/16/21 16:03 Baso # (Auto) 0.0 K/mm3 (0.0-0.1) 04/16/21 16:03 Seg Neutrophils % 74.0 % (40.0-70.0) H 04/16/21 16:03 Seg Neutrophils # 6.4 K/mm3 (1.8-7.7) 04/16/21 16:03 D-Dimer 722.60 ng/mlDDU (0-234) H 04/16/21 16:03 VBG pH 7.405 (7.320-7.420) 04/16/21 16:03 Sodium 131 mmol/L (137-145) L 04/16/21 16:03 Potassium 3.9 mmol/L (3.6-5.0) 04/16/21 16:03 Chloride 92.8 mmol/L (98-107) L 04/16/21 16:03 Carbon Dioxide 22 mmol/L (22-30) 04/16/21 16:03 Anion Gap 20 mmol/L 04/16/21 16:03 BUN 6 mg/dL (9-20) L 04/16/21 16:03 Creatinine 0.8 mg/dL (0.8-1.3) 04/16/21 16:03 Estimated GFR > 60 ml/min 04/16/21 16:03 BUN/Creatinine Ratio 8 % 04/16/21 16:03 Glucose 402 mg/dL (75-100) H 04/16/21 16:03 POC Glucose 281 mg/dL (70-105) H 04/16/21 18:28 Calcium 8.8 mg/dL (8.4-10.2) 04/16/21 16:03 Total Bilirubin 0.60 mg/dL (0.1-1.2) 04/16/21 16:03 AST 42 units/L (5-40) H 04/16/21 16:03 ALT 44 units/L (7-56) 04/16/21 16:03 Alkaline Phosphatase 161 units/L (35-129) H 04/16/21 16:03 Troponin T < 0.010 ng/mL (0.00-0.029) 04/16/21 16:03 Total Protein 7.3 g/dL (6.3-8.2) 04/16/21 16:03 Albumin 3.8 g/dL (3.9-5) L 04/16/21 16:03 Albumin/Globulin Ratio 1.1 % 04/16/21 16:03 TSH 1.050 mlU/mL (0.270-4.200) 04/16/21 16:03 - Imaging and Cardiology Chest x-ray: report reviewed CT Scan - head: report reviewed Assessment and Plan VTE prophylaxis?: Chemical Plan of care discussed with patient/family: Yes - Patient Problems (1) Acute coronary syndrome Current Visit: Yes Status: Acute Plan to address problem: Admit the patient to the medical floor telemetry. Aspirin 325 mg p.o. daily. Lipitor 40 mg p.o. daily. Serial cardiac enzymes. Nitroglycerin as needed. Echocardiogram. Consult cardiology if needed (2) Hyperglycemia Current Visit: No Status: Acute Plan to address problem: 1800 kcal ADA diet. Humalog sliding scale moderate dose coverage. Insulin glargine 50 units subcu twice daily. Diabetic education (3) Hyperglycemia due to type 1 diabetes mellitus Current Visit: No Status: Acute Plan to address problem: 1800 kcal ADA diet. Humalog sliding scale moderate dose coverage. Insulin glargine 50 units subcu twice daily. Diabetic education (4) Syncope Current Visit: No Status: Acute Plan to address problem: Aspirin 325 mg p.o. daily. Lipitor 40 mg p.o. daily. Serial cardiac enzymes. Nitroglycerin as needed. Echocardiogram. Consult cardiology if needed (5) CHF (congestive heart failure) Current Visit: Yes Status: Acute Plan to address problem: Stable. We will continue the home medication. Echocardiogram (6) DVT prophylaxis Current Visit: Yes Status: Acute Plan to address problem: Heparin 5000 units subcu every 8 hours for DVT prophylaxis. Protonix 40 mg p.o. daily for GI prophylaxis. Patient is a full code
[2021-04-16 23:53] LABS: Basophils % (Auto) 0.5 % (0.0-1.8); Eosinophils # (Auto) 0.1 K/mm3 (0.0-0.4); Eosinophils % (Auto) 0.9 % (0.0-4.3); Hematocrit 49.9 % (35.5-45.6); Hemoglobin 16.3 gm/dl (11.8-15.2); Lymphocytes # (Auto) 1.5 K/mm3 (1.2-5.4); Lymphocytes % (Auto) 20.8 % (13.4-35.0); Mean Corpuscular HGB Conc 33 % (32-34); Mean Corpuscular Volume 90 fl (84-94); Monocytes # (Auto) 0.9 K/mm3 (0.0-0.8); Monocytes % (Auto) 12.3 % (0.0-7.3); Platelet Count 176 K/mm3 (140-440); Red Blood Count 5.53 M/mm3 (3.65-5.03); Red Cell Distribution Width 13.5 % (13.2-15.2)
[2021-04-17 00:08] LABS: BUN/Creatinine Ratio 10; Blood Urea Nitrogen 8 mg/dL (9-20); Calcium 8.9 mg/dL (8.4-10.2); Hemolysis Index 13
[2021-04-17] MEDS: MORPHINE 4 MG/1 ML INJ IV PRN ×2 (02:57→22:24)
[2021-04-17] MEDS: GABAPENTIN 300 MG CAP PO SCH ×3 (05:38→22:18)
[2021-04-17] MEDS: INSULIN LISPRO 100 UNIT/ML SUB-Q SCH ×4 (08:58→22:20)
--- NOTE | 2021-04-17 09:26 | Progress Note ---
Assessment and Plan Assessment and plan: -- Acute coronary syndrome Current Visit: Yes Status: Acute Atypical chest pain, EKG and serial cardiac enzymes Continue aspirin 325 mg p.o. daily. Lipitor 40 mg p.o. daily. Nitroglycerin as needed. Echocardiogram. LV function ejection fraction Cardiology consult if needed --Hyperglycemia Current Visit: No Status: Acute Uncontrolled diabetes/noncompliance Accu-Chek sliding scale coverage 1800 kcal ADA diet. Patient cannot afford Lantus , will transition to Novolin 70/30 from morning dose Humalog sliding scale moderate dose coverage. Insulin glargine 50 units subcu twice daily. Nutrition education and diabetic education, --Hyperglycemia due to type 1 diabetes mellitus Current Visit: No Status: Acute A1c 16.5 in 2019 , check hemoglobin A1c tomorrow Nutrition education , diabetic education , continue Lantus today Will transition to Novolin 70/30 from tomorrow[patient cannot afford Lantus] -- Syncope/autonomic dysfunction/severe hyperglycemia Current Visit: No Status: Acute Fall precautions, treat the underlying cause, better control of sugars CT head negative for acute abnormality. CTA chest negative for PE/other a bnormalities --CHF (congestive heart failure) EF 50 to 55% Current Visit: Yes Status: Acute proBNP is now normal level, no pulmonary edema echocardiogram normal LV function, 50 to 55% No evidence of congestive heart failure --GERD; Protonix 40 mg p.o. daily --Full CODE STATUS-; -- DVT prophylaxis Current Visit: Yes Status: Acute Heparin 5000 units subcu every 8 hours Closely monitor the patient and adjust management as needed Plan of care reviewed with the patient and his nurse 04/17/2021; patient is on glargine, patient cannot afford as he has no resources Will transition to Novolin 70/30 from morning dose, check A1c History Interval history: I have seen and examined the patient at the bedside patient's chart and medications reviewed Patient is admitted with uncontrolled blood sugars and dizziness and fall Patient blood sugars remain high Symptoms slightly improved Vital signs noted Hospitalist Physical - Constitutional Vitals: Temp Pulse Resp BP Pulse Ox 97.8 F 91 H 20 114/53 98 04/17/21 08:09 04/17/21 08:09 04/17/21 08:09 04/17/21 08:09 04/17/21 08:23 General appearance: Present: no acute distress, mild distress, severe distress, well-nourished - EENT Eyes: Present: PERRL, EOM intact - Neck Neck: Present: supple, normal ROM - Respiratory Respiratory effort: normal Respiratory: bilateral: diminished, negative: rales, rhonchi, wheezing - Cardiovascular Rhythm: regular Heart Sounds: Present: S1 & S2 - Extremities Extremities: no ischemia, No edema - Abdominal General gastrointestinal: soft, non-tender, non-distended, normal bowel sounds - Integumentary Integumentary: Present: clear, warm - Psychiatric Psychiatric: appropriate mood/affect, cooperative - Neurologic Neurologic: CNII-XII intact, moves all extremities HEART Score - HEART Score Troponin: Troponin T < 0.010 ng/mL (0.00-0.029) 04/17/21 05:43 Results - Labs CBC & Chem 7: 04/16/21 23:42 04/16/21 23:42 Labs: Laboratory Last Values WBC 7.4 K/mm3 (4.5-11.0) 04/16/21 23:42 RBC 5.53 M/mm3 (3.65-5.03) H 04/16/21 23:42 Hgb 16.3 gm/dl (11.8-15.2) H 04/16/21 23:42 Hct 49.9 % (35.5-45.6) H 04/16/21 23:42 MCV 90 fl (84-94) 04/16/21 23:42 MCH 30 pg (28-32) 04/16/21 23:42 MCHC 33 % (32-34) 04/16/21 23:42 RDW 13.5 % (13.2-15.2) 04/16/21 23:42 Plt Count 176 K/mm3 (140-440) 04/16/21 23:42 Lymph % (Auto) 20.8 % (13.4-35.0) 04/16/21 23:42 [place] % (Auto) 12.3 % (0.0-7.3) H 04/16/21 23:42 Eos % (Auto) 0.9 % (0.0-4.3) 04/16/21 23:42 Baso % (Auto) 0.5 % (0.0-1.8) 04/16/21 23:42 Lymph # (Auto) 1.5 K/mm3 (1.2-5.4) 04/16/21 23:42 [place] # (Auto) 0.9 K/mm3 (0.0-0.8) H 04/16/21 23:42 Eos # (Auto) 0.1 K/mm3 (0.0-0.4) 04/16/21 23:42 Baso # (Auto) 0.0 K/mm3 (0.0-0.1) 04/16/21 23:42 Seg Neutrophils % 65.5 % (40.0-70.0) 04/16/21 23:42 Seg Neutrophils # 4.8 K/mm3 (1.8-7.7) 04/16/21 23:42 D-Dimer 722.60 ng/mlDDU (0-234) H 04/16/21 16:03 VBG pH 7.405 (7.320-7.420) 04/16/21 16:03 Sodium 134 mmol/L (137-145) L 04/16/21 23:42 Potassium 4.0 mmol/L (3.6-5.0) 04/16/21 23:42 Chloride 96.4 mmol/L (98-107) L 04/16/21 23:42 Carbon Dioxide 24 mmol/L (22-30) 04/16/21 23:42 Anion Gap 18 mmol/L 04/16/21 23:42 BUN 8 mg/dL (9-20) L 04/16/21 23:42 Creatinine 0.8 mg/dL (0.8-1.3) 04/16/21 23:42 Estimated GFR > 60 ml/min 04/16/21 23:42 BUN/Creatinine Ratio 10 % 04/16/21 23:42 Glucose 415 mg/dL (75-100) H 04/16/21 23:42 POC Glucose 306 mg/dL (70-105) H 04/17/21 08:23 Calcium 8.9 mg/dL (8.4-10.2) 04/16/21 23:42 Total Bilirubin 0.60 mg/dL (0.1-1.2) 04/16/21 16:03 AST 42 units/L (5-40) H 04/16/21 16:03 ALT 44 units/L (7-56) 04/16/21 16:03 Alkaline Phosphatase 161 units/L (35-129) H 04/16/21 16:03 Troponin T < 0.010 ng/mL (0.00-0.029) 04/17/21 05:43 Total Protein 7.3 g/dL (6.3-8.2) 04/16/21 16:03 Albumin 3.8 g/dL (3.9-5) L 04/16/21 16:03 Albumin/Globulin Ratio 1.1 % 04/16/21 16:03 TSH 1.050 mlU/mL (0.270-4.200) 04/16/21 16:03 De [place]ón/IV: Voiding Method Toilet Active Medications - Current Medications Current Medications: Generic Name Dose Route Start Last Admin Trade Name Freq PRN Reason Stop Dose Admin Acetaminophen 650 mg 04/16/21 22:14 Acetaminophen 325 Mg Tab PO Q6H PRN Pain, Mild (1-3) Aspirin 325 mg 04/17/21 10:00 Aspirin Ec 325 Mg Tab PO QDAY [facility] Atorvastatin Calcium 40 mg 04/17/21 22:00 Atorvastatin 40 Mg Tab PO QHS [facility] Dextrose 50 ml 04/16/21 22:14 Dextrose 50% In Water (25gm) 50 Ml Syringe IV Q30MIN PRN Hypoglycemia Protocol Gabapentin 300 mg 04/17/21 06:00 04/17/21 05:38 Gabapentin 300 Mg Cap PO Not Given Q8HR [facility] Heparin Sodium (Porcine) 5,000 unit 04/17/21 10:00 Heparin 5,000 Unit/1 Ml Vial SUB-Q Q12HR [facility] Insulin Glargine 50 units 04/17/21 10:00 Insulin Glargine 100 Units/Ml SUB-Q BID [facility] Insulin Human Lispro 0 unit 04/17/21 07:30 04/17/21 08:58 Insulin Lispro 100 Unit/Ml SUB-Q 4 unit ACHS YENY Administration Protocol Morphine Sulfate 2 mg 04/16/21 22:14 04/17/21 02:57 Morphine 4 Mg/1 Ml Inj IV 2 mg Q5MIN PRN Administration Chest Pain unrelieved by NTG Nitroglycerin 0.4 mg 04/16/21 22:14 Nitroglycerin 0.4 Mg Tab Subl SL Q5M PRN Chest Pain Pantoprazole Sodium 40 mg 04/17/21 10:00 Pantoprazole 40 Mg Tab PO QDAY [facility] Sodium Chloride 10 ml 04/16/21 22:14 Sodium Chloride 0.9% 10 Ml Flush Syringe IV PRN PRN LINE FLUSH Tramadol HCl 50 mg 04/16/21 22:14 Tramadol 50 Mg Tab PO Q6H PRN Pain, Moderate (4-6)
--- NOTE | 2021-04-17 10:53 | Electrocardiograph Report ---
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
[2021-04-17] MEDS: ASPIRIN EC 325 MG TAB PO SCH (13:50)
[2021-04-17] MEDS: traMADol 50 MG TAB PO PRN (13:50)
[2021-04-17] MEDS: PANTOPRAZOLE 40 MG TAB PO SCH (13:50)
[2021-04-17] MEDS: INSULIN GLARGINE 100 UNITS/ML SUB-Q SCH ×2 (13:50→22:19)
[2021-04-17] MEDS: HEPARIN 5,000 UNIT/1 ML VIAL SUB-Q SCH ×2 (13:51→22:19)
[2021-04-18] MEDS: MORPHINE 4 MG/1 ML INJ IV PRN ×2 (05:21→21:12)
[2021-04-18] MEDS: GABAPENTIN 300 MG CAP PO SCH ×3 (05:23→21:13)
[2021-04-18] MEDS: INSULIN LISPRO 100 UNIT/ML SUB-Q SCH ×4 (08:10→22:30)
--- NOTE | 2021-04-18 09:34 | Progress Note ---
Assessment and Plan Assessment and plan: --Hyponatremia; probably pseudohyponatremia due to hyperglycemia Closely monitor electrolytes -- Acute coronary syndrome Current Visit: Yes Status: Acute Intermittent chest pain, EKG and serial cardiac enzymes Continue aspirin 325 mg p.o. daily. Lipitor 40 mg p.o. daily. Nitroglycerin as needed. Echocardiogram. Normal EF Cardiology consult requested for possible stress test --Hyperglycemia Current Visit: No Status: Acute Uncontrolled diabetes/noncompliance Accu-Chek sliding scale coverage 1800 kcal ADA diet. Patient cannot afford Lantus , will transition to Novolin 70/30 from morning dose Humalog sliding scale moderate dose coverage. Insulin glargine 50 units subcu twice daily. Nutrition education and diabetic education, --Hyperglycemia due to type 1 diabetes mellitus Current Visit: No Status: Acute A1c 16.5 in 2019 , check hemoglobin A1c tomorrow Nutrition education , diabetic education , continue Lantus today Discussed with the patient the cost of Lantus, he stated that he can afford it for a couple of weeks And his insurance will kick in from May 02, continue Lantus -- Syncope/autonomic dysfunction/severe hyperglycemia Current Visit: No Status: Acute Fall precautions, treat the underlying cause, better control of sugars CT head negative for acute abnormality. CTA chest negative for PE/other abnormalities --?CHF (congestive heart failure) EF 50 to 55% Current Visit: Yes Status: Acute proBNP is now normal level, no pulmonary edema echocardiogram normal LV function, 50 to 55% No evidence of congestive heart failure --GERD; Protonix 40 mg p.o. daily --Full CODE STATUS-; -- DVT prophylaxis Current Visit: Yes Status: Acute Heparin 5000 units subcu every 8 hours Closely monitor the patient and adjust management as needed Plan of care reviewed with the patient and his nurse 04/17/2021; patient is on glargine, patient cannot afford as he has no resources Will transition to Novolin 70/30 from morning dose, check A1c 04/18/2021; patient's blood sugars reasonable control on long-acting glargine Discussed with the patient, he reported that he stated that he cannot afford glargine at this point And he will be getting insurance in a few days starting from May 02, intermittent chest pain Cardiology consulted History Interval history: I seen and examined the patient at the bedside patient's chart and medications reviewed Patient's blood sugars are moderate control Patient wants to continue Lantus[as he gets insurance from 02 May] He also says that Lantus insulin is working for him Complains of intermittent chest pain No chest pain at the time of my evaluation this morning Hospitalist Physical - Constitutional Vitals: Temp Pulse Resp BP Pulse Ox 97.8 F 79 18 117/77 94 04/18/21 07:55 04/18/21 07:55 04/18/21 07:55 04/18/21 07:55 04/18/21 07:55 General appearance: Present: no acute distress, mild distress, severe distress, well-nourished - EENT Eyes: Present: PERRL, EOM intact - Neck Neck: Present: supple, normal ROM - Respiratory Respiratory effort: normal Respiratory: bilateral: diminished, negative: rales, rhonchi, wheezing - Cardiovascular Rhythm: regular Heart Sounds: Present: S1 & S2 - Extremities Extremities: no ischemia, No edema - Abdominal General gastrointestinal: soft, non-tender, non-distended, normal bowel sounds - Integumentary Integumentary: Present: clear, warm - Psychiatric Psychiatric: appropriate mood/affect, cooperative - Neurologic Neurologic: CNII-XII intact, moves all extremities HEART Score - HEART Score Troponin: Troponin T < 0.010 ng/mL (0.00-0.029) 04/17/21 05:43 Results - Labs CBC & Chem 7: 04/16/21 23:42 04/16/21 23:42 Labs: Laboratory Last Values WBC 7.4 K/mm3 (4.5-11.0) 04/16/21 23:42 RBC 5.53 M/mm3 (3.65-5.03) H 04/16/21 23:42 Hgb 16.3 gm/dl (11.8-15.2) H 04/16/21 23:42 Hct 49.9 % (35.5-45.6) H 04/16/21 23:42 MCV 90 fl (84-94) 04/16/21 23:42 MCH 30 pg (28-32) 04/16/21 23:42 MCHC 33 % (32-34) 04/16/21 23:42 RDW 13.5 % (13.2-15.2) 04/16/21 23:42 Plt Count 176 K/mm3 (140-440) 04/16/21 23:42 Lymph % (Auto) 20.8 % (13.4-35.0) 04/16/21 23:42 [place] % (Auto) 12.3 % (0.0-7.3) H 04/16/21 23:42 Eos % (Auto) 0.9 % (0.0-4.3) 04/16/21 23:42 Baso % (Auto) 0.5 % (0.0-1.8) 04/16/21 23:42 Lymph # (Auto) 1.5 K/mm3 (1.2-5.4) 04/16/21 23:42 [place] # (Auto) 0.9 K/mm3 (0.0-0.8) H 04/16/21 23:42 Eos # (Auto) 0.1 K/mm3 (0.0-0.4) 04/16/21 23:42 Baso # (Auto) 0.0 K/mm3 (0.0-0.1) 04/16/21 23:42 Seg Neutrophils % 65.5 % (40.0-70.0) 04/16/21 23:42 Seg Neutrophils # 4.8 K/mm3 (1.8-7.7) 04/16/21 23:42 D-Dimer 722.60 ng/mlDDU (0-234) H 04/16/21 16:03 VBG pH 7.405 (7.320-7.420) 04/16/21 16:03 Sodium 134 mmol/L (137-145) L 04/16/21 23:42 Potassium 4.0 mmol/L (3.6-5.0) 04/16/21 23:42 Chloride 96.4 mmol/L (98-107) L 04/16/21 23:42 Carbon Dioxide 24 mmol/L (22-30) 04/16/21 23:42 Anion Gap 18 mmol/L 04/16/21 23:42 BUN 8 mg/dL (9-20) L 04/16/21 23:42 Creatinine 0.8 mg/dL (0.8-1.3) 04/16/21 23:42 Estimated GFR > 60 ml/min 04/16/21 23:42 BUN/Creatinine Ratio 10 % 04/16/21 23:42 Glucose 415 mg/dL (75-100) H 04/16/21 23:42 POC Glucose 146 mg/dL (70-105) H 04/18/21 07:53 Calcium 8.9 mg/dL (8.4-10.2) 04/16/21 23:42 Total Bilirubin 0.60 mg/dL (0.1-1.2) 04/16/21 16:03 AST 42 units/L (5-40) H 04/16/21 16:03 ALT 44 units/L (7-56) 04/16/21 16:03 Alkaline Phosphatase 161 units/L (35-129) H 04/16/21 16:03 Troponin T < 0.010 ng/mL (0.00-0.029) 04/17/21 05:43 Total Protein 7.3 g/dL (6.3-8.2) 04/16/21 16:03 Albumin 3.8 g/dL (3.9-5) L 04/16/21 16:03 Albumin/Globulin Ratio 1.1 % 04/16/21 16:03 TSH 1.050 mlU/mL (0.270-4.200) 04/16/21 16:03 [place]/IV: Voiding Method Toilet Active Medications - Current Medications Current Medications: Generic Name Dose Route Start Last Admin Trade Name Freq PRN Reason Stop Dose Admin Acetaminophen 650 mg 04/16/21 22:14 Acetaminophen 325 Mg Tab PO Q6H PRN Pain, Mild (1-3) Aspirin 325 mg 04/17/21 10:00 04/17/21 13:50 Aspirin Ec 325 Mg Tab PO 325 mg QDAY YENY Administration Atorvastatin Calcium 40 mg 04/17/21 22:00 04/17/21 22:19 Atorvastatin 40 Mg Tab PO 40 mg QHS YENY Administration Dextrose 50 ml 04/16/21 22:14 Dextrose 50% In Water (25gm) 50 Ml Syringe IV Q30MIN PRN Hypoglycemia Protocol Gabapentin 300 mg 04/17/21 06:00 04/18/21 05:23 Gabapentin 300 Mg Cap PO 300 mg Q8HR YENY Administration Heparin Sodium (Porcine) 5,000 unit 04/17/21 10:00 04/17/21 22:19 Heparin 5,000 Unit/1 Ml Vial SUB-Q 5,000 unit Q12HR YENY Administration Insulin Glargine 50 units 04/18/21 10:00 Insulin Glargine 100 Units/Ml SUB-Q BID YENY Insulin Human Lispro 0 unit 04/17/21 07:30 04/18/21 08:10 Insulin Lispro 100 Unit/Ml SUB-Q Not Given [facility] Protocol Morphine Sulfate 2 mg 04/16/21 22:14 04/18/21 05:21 Morphine 4 Mg/1 Ml Inj IV 2 mg Q5MIN PRN Administration Chest Pain unrelieved by NTG Nitroglycerin 0.4 mg 04/16/21 22:14 Nitroglycerin 0.4 Mg Tab Subl SL Q5M PRN Chest Pain Pantoprazole Sodium 40 mg 04/17/21 10:00 04/17/21 13:50 Pantoprazole 40 Mg Tab PO 40 mg QDAY YENY Administration Sodium Chloride 10 ml 04/16/21 22:14 04/17/21 22:20 Sodium Chloride 0.9% 10 Ml Flush Syringe IV 10 ml PRN PRN Administration LINE FLUSH Tramadol HCl 50 mg 04/16/21 22:14 04/17/21 13:50 Tramadol 50 Mg Tab PO 50 mg Q6H PRN Administration Pain, Moderate (4-6) Nutrition/Malnutrition Assess - Dietary Evaluation Nutrition/Malnutrition Findings: Nutrition Notes Start: 04/17/21 13:05 Freq: Status: Active Protocol: Document 04/17/21 13:05 SHAGUFTA (Rec: 04/17/21 13:20 SHAGUFTA [id number]) Nutrition Notes Need for Assessment generated from: MD Order,Education Initial or Follow up Assessment Current Diagnosis Coronary Artery Disease, Diabetes Other Pertinent Diagnosis Syncope, CHF, Acute coronary syndrome, T1DM Hyperglycemia. Current Diet ADA Consistent Carbohydrates Diet (since L 04/17). Labs/Tests 04/16: Na 134, Cl 96.4, CO2 8, Glu 415. Pertinent Medications 04/17: Insulin, others nutritionally unremarkable. Height 5 ft 10 in Weight 77.111 kg [place] Body Weight (kg) 75.45 BMI 24.3 Weight Status Appropriate Subjective/Other Information RD consul for Nutrition Education on Diabetes type 1. Nutrition education will be provided on F/U. Percent of energy/protein needs met: Prescribed Consistent Carbohydrates Diet provides for energy/protein needs (2, 061 Kcal/91 g) during LOS. Burn Absent Trauma Absent GI Symptoms None Food Allergy No Skin Integrity/Comment Clear, warm, dry. Minimum of two criteria No #1 Nutrition Diagnosis Food and nutrition-related knowledge deficit Etiology T1DM As Evidenced by Signs and Symptoms T1DM Hyperglycemia, MD request for Nutrition Education. Is patient on ventilator? No Is Patient Ambulatory and/or Out of Bed Yes REE-([facility]-ambulatory/OOB) [ 2089.568 [id number]] Calculation Used for Recommendations [facility] Additional Notes Protein: 1-1.2 g/Kg; 77-92 g/ day (from IBW + critical care) . Fluids: 1 ml/Kcal, or as per MD. Nutrition Intervention Change Diet Order: Continue CC Diet. Education Handouts Provided AND: MyPlate For Meal Planning , Diabetes Label Reading Tips, and Using Nutrition Labels: Carbohydrate. Goal #1 During LOS, provide Pt with nutrition education to foster behavioral changes towards a healthy lifestyle. Follow-Up By: 04/22/21 Additional Comments Nutrition education will be provided on F/U.
[2021-04-18] MEDS: HEPARIN 5,000 UNIT/1 ML VIAL SUB-Q SCH ×2 (10:07→21:13)
[2021-04-18] MEDS: ASPIRIN EC 325 MG TAB PO SCH (10:07)
[2021-04-18] MEDS: PANTOPRAZOLE 40 MG TAB PO SCH (10:07)
[2021-04-18] MEDS: traMADol 50 MG TAB PO PRN (10:15)
[2021-04-18] MEDS: INSULIN GLARGINE 100 UNITS/ML SUB-Q SCH ×2 (12:46→21:13)
--- NOTE | 2021-04-18 12:47 | Electrocardiograph Report ---
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
--- NOTE | 2021-04-18 12:54 | Electrocardiograph Report ---
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
--- NOTE | 2021-04-18 13:23 | Consultation ---
History of Present Illness Consult date: 04/18/21 Consult reason: chest pain History of present illness: 56-year-old man with a history of poorly managed diabetes. Since 2019, he has had multiple admissions for uncontrolled diabetes, usually due to noncompliance with medical therapy and outpatient doctor follow-ups. He presented 2 days ago with a recurrence of uncontrolled diabetes, blood sugar was 467 by EMS report. He admits to noncompliance with his insulin and Metformin for several months. During his course in the hospital, he has reported some atypical chest pain. T his prompted a cardiac consultation. He describes lower sternal and epigastric pain which is reproducible with palpation over the lower sternal and epigastric area. There is no anginal type chest pain. There is no shortness of breath, palpitations or edema. This patient has had extensive prior coronary artery disease work-up, a cardiac catheterization in [address] [facility] was normal. This was followed by a thallium stress test in 2019, also normal. Work-up on this admission, serial ECGs show normal sinus rhythm with poor R wave progression but no acute changes. EKG is unchanged from previous tracings in 2019. Serial troponin levels x3 are normal. A chest x-ray shows normal-sized cardiac silhouette and clear lungs. An echocardiogram showed well-preserved left ventricular systolic function with ejection fraction 50 to 55%. Past History Past Medical History: diabetes Medications and Allergies Allergies Allergy/AdvReac Type Severity Reaction Status Date / Time codeine Allergy Hives Verified 04/17/21 08:53 Home Medications Medication Instructions Recorded Confirmed Last Taken Type metFORMIN XR [Glucophage XR] 1,000 mg PO QDDIAB #60 tablet 12/10/18 04/17/21 6 Weeks Ago Rx ~03/06/21 traZODone [Desyrel] 100 mg PO QHS #30 tablet 12/10/18 04/17/21 6 Months Ago Rx ~10/16/20 Insulin Aspart (Nf) [NovoLOG 25 units SQ AC #5 pen 12/11/18 04/17/21 6 Weeks Ago Rx Flexpen] ~03/06/21 Insulin Glargine,Hum.rec.anlog 50 unit SQ BID #5 insuln.pen 12/11/18 04/17/21 6 Weeks Ago Rx [Basaglar Kwikpen U-100] ~03/06/21 Pen Needle, Diabetic [1St Tier 1 each [facility] #100 dis.needle 12/11/18 04/17/21 6 Weeks Ago Rx Unifine Pentips Plus] ~03/06/21 Gabapentin [Neurontin] 600 mg PO QDAY 04/17/21 04/17/21 1 Week Ago History ~04/10/21 Active Meds: Active Medications Acetaminophen (Acetaminophen 325 Mg Tab) 650 mg PO Q6H PRN PRN Reason: Pain, Mild (1-3) Aspirin (Aspirin Ec 325 Mg Tab) 325 mg PO QDAY [facility] Last Admin: 04/18/21 10:07 Dose: 325 mg Documented by: Atorvastatin Calcium (Atorvastatin 40 Mg Tab) 40 mg PO QHS [facility] Last Admin: 04/17/21 22:19 Dose: 40 mg Documented by: Dextrose (Dextrose 50% In Water (25gm) 50 Ml Syringe) 50 ml IV Q30MIN PRN; Prot ocol PRN Reason: Hypoglycemia Gabapentin (Gabapentin 300 Mg Cap) 300 mg PO Q8HR [facility] Last Admin: 04/18/21 05:23 Dose: 300 mg Documented by: Heparin Sodium (Porcine) (Heparin 5,000 Unit/1 Ml Vial) 5,000 unit SUB-Q Q12HR [facility] Last Admin: 04/18/21 10:07 Dose: 5,000 unit Documented by: Insulin Glargine (Insulin Glargine 100 Units/Ml) 50 units SUB-Q BID [facility] Last Admin: 04/18/21 12:46 Dose: 50 units Documented by: Insulin Human Lispro (Insulin Lispro 100 Unit/Ml) 0 unit SUB-Q [facility]; Protocol Last Admin: 04/18/21 12:46 Dose: 6 unit Documented by: Morphine Sulfate (Morphine 4 Mg/1 Ml Inj) 2 mg IV Q5MIN PRN PRN Reason: Chest Pain unrelieved by NTG Last Admin: 04/18/21 05:21 Dose: 2 mg Documented by: Nitroglycerin (Nitroglycerin 0.4 Mg Tab Subl) 0.4 mg SL Q5M PRN PRN Reason: Chest Pain Pantoprazole Sodium (Pantoprazole 40 Mg Tab) 40 mg PO QDAY [facility] Last Admin: 04/18/21 10:07 Dose: 40 mg Documented by: Sodium Chloride (Sodium Chloride 0.9% 10 Ml Flush Syringe) 10 ml IV PRN PRN PRN Reason: LINE FLUSH Last Admin: 04/17/21 22:20 Dose: 10 ml Documented by: Tramadol HCl (Tramadol 50 Mg Tab) 50 mg PO Q6H PRN PRN Reason: Pain, Moderate (4-6) Last Admin: 04/18/21 10:15 Dose: 50 mg Documented by: Review of Systems Cardiovascular: chest pain, no orthopnea, no palpitations, no rapid/irregular heart beat, no edema, no syncope, no lightheadedness, no shortness of breath Physical Examination Vital Signs Temp Pulse Resp BP Pulse Ox 99.0 F 98 H 16 108/70 98 04/16/21 15:51 04/16/21 15:51 04/16/21 15:51 04/16/21 15:51 04/16/21 15:51 General appearance: no acute distress HEENT: Positive: PERRL Neck: Positive: neck supple Cardiac: Positive: Reg Rate and Rhythm Lungs: Positive: Decreased Breath Sounds Neuro: Positive: Grossly Intact Abdomen: Positive: Soft Male genitourinary: Positive: deferred Skin: Positive: Clear Extremities: Absent: edema Results 04/16/21 23:42 04/16/21 23:42 Cardiac Enzymes 04/18/21 Range/Units 08:35 CK-MB (CK-2) 3.0 (0.0-4.0) ng/mL EKG interpretations - Telemetry EKG Rhythm: Sinus Rhythm Assessment and Plan - Patient Problems (1) Atypical chest pain Current Visit: Yes Status: Acute Plan to address problem: 56-year-old man admitted with uncontrolled diabetes due to noncompliance with medical therapy. He complains of atypical chest pain with reproducible tenderness lower sternal and epigastric area. Differential diagnosis include musculoskeletal pain, gastroesophageal reflux or gallbladder disease. I will order a right upper quadrant ultrasound, continue pantoprazole, and add a trial of intravenous Toradol.
[2021-04-18] MEDS: KETOROLAC 30 MG/1 ML INJ IV SCH ×2 (13:57→22:30)
--- NOTE | 2021-04-18 14:48 | Vascular Lab Report ---
"DUPLEX DOPPLER ULTRASOUND CAROTID, BILATERAL INDICATION / CLINICAL INFORMATION: Syncope. COMPARISON: None available. FINDINGS: RIGHT CAROTID: - PLAQUE ESTIMATE (%): < 50% - CCA velocity: 86 cm/sec. - ICA peak systolic velocity: 91 cm/sec. - ICA/CCA PSV Ratio: 1.1 Right Vertebral Artery: Antegrade flow. LEFT CAROTID: - PLAQUE ESTIMATE: < 50% - CCA velocity: 102 cm/sec. - ICA peak systolic velocity: 89 cm/sec. - ICA/CCA PSV Ratio: 0.9 Left Vertebral Artery: Antegrade flow. IMPRESSION: 1. Right Internal Carotid Artery: Less than 50% diameter stenosis. 2. Left Internal Carotid Artery: Less than 50% diameter stenosis. Velocity criteria are extrapolated from diameter data as defined by the Society of Radiologists in [facility] Consensus Conference, Radiology 2003; 229;[id number]. Degree of || ICA PSV || Plaque || ICA/CCA Stenosis (%) || (cm/sec) || estimate (%) || PSV Ratio Normal ............. || ...<125........... || ...None......... || ...<2.0 <50................... || ...<125........... || ......<50......... || ...<2.0 50-69................ || ..125-230...... || ......>50......... || 2.0-4.0 >70 but <100... || >230.............. || .......>50........ || ...>4.0 Near occlusion || High/low/none || ...visible....... || variable Total occlusion || ....None........... || ..no lumen... || ....N/A Signer Name: Solo Teixeira MD Signed: 04/18/2021 2:44 PM Workstation Name: [id number]"
[2021-04-18] MEDS ORDERED: INSULIN NPH/REGULAR 70/30 INJ SUB-Q SCH (17:00)
[2021-04-19] MEDS: KETOROLAC 30 MG/1 ML INJ IV SCH ×3 (07:29→21:20)
[2021-04-19] MEDS: GABAPENTIN 300 MG CAP PO SCH ×3 (07:30→21:19)
--- NOTE | 2021-04-19 08:08 | Progress Note ---
Assessment and Plan Assessment and plan: --Hyponatremia;probably pseudohyponatremia due to hyperglycemia Trending up closely monitor electrolytes --Acute coronary syndrome Current Visit: Yes Status: Acute Intermittent chest pain, EKG and serial cardiac enzymes Continue aspirin 325 mg p.o. daily. Lipitor 40 mg p.o. daily. Nitroglycerin as needed. Echocardiogram. Normal EF Patient had negative cardiac cath 2015 and negative stress test 2018 Normal cardiac enzymes and normal echocardiogram Cardiology feels it is noncardiac and recommended abdominal ultrasound 04/21/2021 :abdominal ultrasound; borderline hepatomegaly with mild to moderate diffuse fatty infiltration Vague echogenic focus in the gallbladder may represent artifact short-term follow-up for repeat gallbladder ultrasound is recommended Gallbladder ultrasound requested --Hyperglycemia Current Visit: No Status: Acute Uncontrolled diabetes/noncompliance Accu-Chek sliding scale coverage 1800 kcal ADA diet. Continue Lantus, decrease dose to 40 units subcu twice daily Humalog sliding scale moderate dose coverage. Nutrition education and diabetic education, prior to discharge --Hyperglycemia due to type 1 diabetes mellitus Current Visit: No Status: Acute A1c 16.5 in 2019 , hemoglobin A1c 15.7 Nutrition education , diabetic education , continue Lantus today Discussed with the patient the cost of Lantus, he stated that he can afford it for a couple of weeks And his insurance will kick in from May 02, continue Lantus -- Syncope/autonomic dysfunction/severe hyperglycemia Current Visit: No Status: Acute Fall precautions, treat the underlying cause, better control of sugars Syncope work-up CT head without contrast, echocardiogram, carotid Doppler negative CTA chest negative for PE/other abnormalities --No evidence of CHF (congestive heart failure) Current Visit: Yes Status: Acute proBNP is now normal level, no pulmonary edema echocardiogram normal LV function, 50 to 55% No evidence of congestive heart failure --GERD; Protonix 40 mg p.o. daily --Full CODE STATUS-; -- DVT prophylaxis Current Visit: Yes Status: Acute Heparin 5000 units subcu every 8 hours Closely monitor the patient and adjust management as needed Plan of care reviewed with the patient and his nurse Brief history and daily hospital course: 56-year-old -[place] male patient with significant past medical history of lymphoma was admitted through emergency room with syncopal episode and chest pain patient also had hyperglycemia Admitted to the hospital appropriately being managed evaluated by cardiology, noncardiac symptoms, syncope work-up with CT head without contrast, carotid Doppler, echocardiogram negative Patient's blood sugars are labile, Disposition follow gallbladder ultrasound, discharge when patient is medically stable brief history and hospital course 04/17/2021; patient is on glargine, patient cannot afford as he has no resources Will transition to Novolin 70/30 from morning dose, check A1c 04/18/2021; patient's blood sugars reasonable control on long-acting glargine I discussed with the patient, that glargine is expensive recommended Novolin 70/30, however he stated that glargine /Lantus works for him And he can afford glargine at this point, he will be getting insurance in a few days starting from May 02, patient c/o intermittent chest pain Cardiology consulted 04/19/2021; cardiology evaluation noted, patient had passed history of negative heart cath negative stress test negative from hospital Abdominal ultrasound findings reviewed, gallbladder ultrasound requested Disposition; follow clinically, follow consultants evaluation recommendation, consider GI evaluation if needed History Interval history: I have seen and examined the patient at the bedside this morning Patient's chart and medications reviewed Patient feels slightly better, no new complaints Vital signs noted Hospitalist Physical - Constitutional Vitals: Temp Pulse Resp BP Pulse Ox 97.5 F L 84 18 100/60 96 04/19/21 07:28 04/19/21 07:28 04/19/21 07:28 04/19/21 07:28 04/19/21 07:28 General appearance: Present: no acute distress, well-nourished - EENT Eyes: Present: PERRL, EOM intact - Neck Neck: Present: supple, normal ROM - Respiratory Respiratory effort: normal Respiratory: bilateral: diminished, negative: rales, rhonchi, wheezing - Cardiovascular Rhythm: regular Heart Sounds: Present: S1 & S2 - Extremities Extremities: no ischemia, No edema - Abdominal General gastrointestinal: soft, non-tender, non-distended, normal bowel sounds - Integumentary Integumentary: Present: clear, warm - Psychiatric Psychiatric: appropriate mood/affect, cooperative - Neurologic Neurologic: CNII-XII intact, moves all extremities HEART Score - HEART Score Troponin: Troponin T < 0.010 ng/mL (0.00-0.029) 04/18/21 08:35 Results - Labs CBC & Chem 7: 04/16/21 23:42 04/16/21 23:42 Labs: Laboratory Last Values WBC 7.4 K/mm3 (4.5-11.0) 04/16/21 23:42 RBC 5.53 M/mm3 (3.65-5.03) H 04/16/21 23:42 Hgb 16.3 gm/dl (11.8-15.2) H 04/16/21 23:42 Hct 49.9 % (35.5-45.6) H 04/16/21 23:42 MCV 90 fl (84-94) 04/16/21 23:42 MCH 30 pg (28-32) 04/16/21 23:42 MCHC 33 % (32-34) 04/16/21 23:42 RDW 13.5 % (13.2-15.2) 04/16/21 23:42 Plt Count 176 K/mm3 (140-440) 04/16/21 23:42 Lymph % (Auto) 20.8 % (13.4-35.0) 04/16/21 23:42 [place] % (Auto) 12.3 % (0.0-7.3) H 04/16/21 23:42 Eos % (Auto) 0.9 % (0.0-4.3) 04/16/21 23:42 Baso % (Auto) 0.5 % (0.0-1.8) 04/16/21 23:42 Lymph # (Auto) 1.5 K/mm3 (1.2-5.4) 04/16/21 23:42 [place] # (Auto) 0.9 K/mm3 (0.0-0.8) H 04/16/21 23:42 Eos # (Auto) 0.1 K/mm3 (0.0-0.4) 04/16/21 23:42 Baso # (Auto) 0.0 K/mm3 (0.0-0.1) 04/16/21 23:42 Seg Neutrophils % 65.5 % (40.0-70.0) 04/16/21 23:42 Seg Neutrophils # 4.8 K/mm3 (1.8-7.7) 04/16/21 23:42 D-Dimer 722.60 ng/mlDDU (0-234) H 04/16/21 16:03 VBG pH 7.405 (7.320-7.420) 04/16/21 16:03 Sodium 134 mmol/L (137-145) L 04/16/21 23:42 Potassium 4.0 mmol/L (3.6-5.0) 04/16/21 23:42 Chloride 96.4 mmol/L (98-107) L 04/16/21 23:42 Carbon Dioxide 24 mmol/L (22-30) 04/16/21 23:42 Anion Gap 18 mmol/L 04/16/21 23:42 BUN 8 mg/dL (9-20) L 04/16/21 23:42 Creatinine 0.8 mg/dL (0.8-1.3) 04/16/21 23:42 Estimated GFR > 60 ml/min 04/16/21 23:42 BUN/Creatinine Ratio 10 % 04/16/21 23:42 Glucose 415 mg/dL (75-100) H 04/16/21 23:42 POC Glucose 81 mg/dL (70-105) 04/19/21 07:29 Hemoglobin A1c 15.7 % (4-6) H 04/18/21 08:35 Calcium 8.9 mg/dL (8.4-10.2) 04/16/21 23:42 Total Bilirubin 0.60 mg/dL (0.1-1.2) 04/16/21 16:03 AST 42 units/L (5-40) H 04/16/21 16:03 ALT 44 units/L (7-56) 04/16/21 16:03 Alkaline Phosphatase 161 units/L (35-129) H 04/16/21 16:03 Total Creatine Kinase 120 units/L (55-170) 04/18/21 08:35 CK-MB (CK-2) 3.0 ng/mL (0.0-4.0) 04/18/21 08:35 CK-MB (CK-2) Rel Index 2.5 (0-4) 04/18/21 08:35 Troponin T < 0.010 ng/mL (0.00-0.029) 04/18/21 08:35 Total Protein 7.3 g/dL (6.3-8.2) 04/16/21 16:03 Albumin 3.8 g/dL (3.9-5) L 04/16/21 16:03 Albumin/Globulin Ratio 1.1 % 04/16/21 16:03 TSH 1.050 mlU/mL (0.270-4.200) 04/16/21 16:03 [place]/IV: Voiding Method Toilet Active Medications - Current Medications Current Medications: Generic Name Dose Route Start Last Admin Trade Name Freq PRN Reason Stop Dose Admin Acetaminophen 650 mg 04/16/21 22:14 Acetaminophen 325 Mg Tab PO Q6H PRN Pain, Mild (1-3) Aspirin 81 mg 04/19/21 10:00 Aspirin Ec 81 Mg Tab PO QDAY YENY Atorvastatin Calcium 40 mg 04/17/21 22:00 04/18/21 21:13 Atorvastatin 40 Mg Tab PO 40 mg QHS YENY Administration Dextrose 50 ml 04/16/21 22:14 Dextrose 50% In Water (25gm) 50 Ml Syringe IV Q30MIN PRN Hypoglycemia Protocol Gabapentin 300 mg 04/17/21 06:00 04/19/21 07:30 Gabapentin 300 Mg Cap PO 300 mg Q8HR [facility] Administration Heparin Sodium (Porcine) 5,000 unit 04/17/21 10:00 04/18/21 21:13 Heparin 5,000 Unit/1 Ml Vial SUB-Q 5,000 unit Q12HR YENY Administration Insulin Glargine 50 units 04/18/21 10:00 04/18/21 21:13 Insulin Glargine 100 Units/Ml SUB-Q 50 units BID YENY Administration Insulin Human Lispro 0 unit 04/17/21 07:30 04/18/21 22:30 Insulin Lispro 100 Unit/Ml SUB-Q Not Given ACHS [facility] Protocol Ketorolac Tromethamine 30 mg 04/18/21 14:00 04/19/21 07:29 Ketorolac 30 Mg/1 Ml Inj IV 04/20/21 13:59 30 mg Q8H YENY Administration Morphine Sulfate 2 mg 04/16/21 22:14 04/18/21 21:12 Morphine 4 Mg/1 Ml Inj IV 2 mg Q5MIN PRN Administration Chest Pain unrelieved by NTG Nitroglycerin 0.4 mg 04/16/21 22:14 Nitroglycerin 0.4 Mg Tab Subl SL Q5M PRN Chest Pain Pantoprazole Sodium 40 mg 04/17/21 10:00 04/18/21 10:07 Pantoprazole 40 Mg Tab PO 40 mg QDAY YENY Administration Sodium Chloride 10 ml 04/16/21 22:14 04/17/21 22:20 Sodium Chloride 0.9% 10 Ml Flush Syringe IV 10 ml PRN PRN Administration LINE FLUSH Tramadol HCl 50 mg 04/16/21 22:14 04/18/21 10:15 Tramadol 50 Mg Tab PO 50 mg Q6H PRN Administration Pain, Moderate (4-6) Nutrition/Malnutrition Assess - Dietary Evaluation Nutrition/Malnutrition Findings: Nutrition Notes Start: 04/17/21 13:05 Freq: Status: Active Protocol: Document 04/17/21 13:05 SHAGUFTA (Rec: 04/17/21 13:20 SHAGUFTA [id number]) Nutrition Notes Need for Assessment generated from: MD Order,Education Initial or Follow up Assessment Current Diagnosis Coronary Artery Disease, Diabetes Other Pertinent Diagnosis Syncope, CHF, Acute coronary syndrome, T1DM Hyperglycemia. Current Diet ADA Consistent Carbohydrates Diet (since L 04/17). Labs/Tests 04/16: Na 134, Cl 96.4, CO2 8, Glu 415. Pertinent Medications 04/17: Insulin, others nutritionally unremarkable. Height 5 ft 10 in Weight 77.111 kg Tilly Body Weight (kg) 75.45 BMI 24.3 Weight Status Appropriate Subjective/Other Information RD consul for Nutrition Education on Diabetes type 1. Nutrition education will be provided on F/U. Percent of energy/protein needs met: Prescribed Consistent Carbohydrates Diet provides for energy/protein needs (2, 061 Kcal/91 g) during LOS. Burn Absent Trauma Absent GI Symptoms None Food Allergy No Skin Integrity/Comment Clear, warm, dry. Minimum of two criteria No #1 Nutrition Diagnosis Food and nutrition-related knowledge deficit Etiology T1DM As Evidenced by Signs and Symptoms T1DM Hyperglycemia, MD request for Nutrition Education. Is patient on ventilator? No Is Patient Ambulatory and/or Out of Bed Yes REE-([facility]-ambulatory/OOB) [ 2089.568 [id number]] Calculation Used for Recommendations [facility] Additional Notes Protein: 1-1.2 g/Kg; 77-92 g/ day (from IBW + critical care) . Fluids: 1 ml/Kcal, or as per MD. Nutrition Intervention Change Diet Order: Continue CC Diet. Education Handouts Provided AND: MyPlate For Meal Planning , Diabetes Label Reading Tips, and Using Nutrition Labels: Carbohydrate. Goal #1 During LOS, provide Pt with nutrition education to foster behavioral changes towards a healthy lifestyle. Follow-Up By: 04/22/21 Additional Comments Nutrition education will be provided on F/U.
[2021-04-19] MEDS: INSULIN LISPRO 100 UNIT/ML SUB-Q SCH ×4 (09:40→22:39)
--- NOTE | 2021-04-19 12:06 | Ultrasound Report ---
ULTRASOUND ABDOMEN, COMPLETE INDICATION: Epigastric/ abdominal pain. COMPARISON: None available. FINDINGS: PANCREAS: The visualized portions are unremarkable. ABDOMINAL AORTA: No significant abnormality. IVC: No significant abnormality.. LIVER: 16.5 cm in length with mild to moderate diffuse increased echogenicity compared to the right r enal cortex. There is mild sparing adjacent to the gallbladder. No focal lesion and normal directiona l blood flow in the main portal vein. GALLBLADDER: 2 cm vague echogenic focus along the posterior wall of the gallbladder in the left later al decubitus view, not seen in the supine position, may be artifactual. No other abnormality. BILE DUCTS: No significant abnormality. Common bile duct measures 2.4 mm. KIDNEYS: Right: No significant abnormality Left: No significant abnormality SPLEEN: No significant abnormality. FREE FLUID: None. ADDITIONAL FINDINGS: None. IMPRESSION: 1. Borderline hepatomegaly with mild to moderate diffuse fatty infiltration. 2. Vague echogenic focus in the gallbladder may represent artifact. Short-term follow-up with repeat gallbladder ultrasound is recommended. Signer Name: John Wang MD Signed: 04/19/2021 12:01 PM Workstation Name: [id number]
[2021-04-19] MEDS: PANTOPRAZOLE 40 MG TAB PO SCH (12:33)
[2021-04-19] MEDS: HEPARIN 5,000 UNIT/1 ML VIAL SUB-Q SCH ×2 (12:33→21:19)
[2021-04-19] MEDS: ASPIRIN EC 81 MG TAB PO SCH (12:33)
[2021-04-19] MEDS: MORPHINE 4 MG/1 ML INJ IV PRN ×2 (12:37→21:19)
--- NOTE | 2021-04-19 13:18 | Progress Note ---
Assessment and Plan - Patient Problems (1) Atypical chest pain Current Visit: Yes Status: Acute Plan to address problem: 56-year-old man admitted with uncontrolled diabetes due to noncompliance with medical therapy. He complains of atypical chest pain with reproducible tenderness lower sternal and epigastric area. Differential diagnosis include musculoskeletal pain, gastroesophageal reflux or gallbladder disease. I will order a gallbladder ultrasound, continue pantoprazole, and continue intravenous Toradol. Subjective Date of service: 04/19/21 Interval history: Patient is comfortable, no cardiac complaints. Ambulating in his room, no angina, no shortness of breath and no palpitations. Objective Vital Signs Temp Pulse Pulse Resp BP Pulse Ox 04/19/21 11:36 98.2 F 76 19 111/58 96 04/19/21 08:18 99 04/19/21 07:28 97.5 F L 84 18 100/60 96 04/19/21 05:00 82 04/19/21 04:49 98.2 F 82 18 115/50 100 04/19/21 03:39 96 04/18/21 23:40 98.1 F 86 18 119/69 96 04/18/21 21:00 70 04/18/21 19:37 98.1 F 80 17 110/62 96 04/18/21 18:00 79 18 98 04/18/21 16:28 97.7 F 80 18 115/63 96 - Physical Examination General: No Apparent Distress HEENT: Positive: PERRL Neck: Positive: neck supple Cardiac: Positive: Reg Rate and Rhythm Lungs: Positive: Decreased Breath Sounds Neuro: Positive: Grossly Intact Abdomen: Positive: Soft Skin: Positive: Clear Extremities: Absent: edema
[2021-04-19] MEDS: INSULIN GLARGINE 100 UNITS/ML SUB-Q SCH (13:28)
[2021-04-19] MEDS ORDERED: INSULIN GLARGINE 100 UNITS/ML SUB-Q SCH (18:43)
[2021-04-20] MEDS: MORPHINE 4 MG/1 ML INJ IV PRN (09:11)
[2021-04-20] MEDS: KETOROLAC 30 MG/1 ML INJ IV SCH (09:29)
[2021-04-20] MEDS: GABAPENTIN 300 MG CAP PO SCH (09:29)
[2021-04-20] MEDS: INSULIN LISPRO 100 UNIT/ML SUB-Q SCH (09:29)
[2021-04-20 10:52] VITALS: BP 114/71
[2021-04-20] MEDS: HEPARIN 5,000 UNIT/1 ML VIAL SUB-Q SCH (11:26)
[2021-04-20] MEDS: PANTOPRAZOLE 40 MG TAB PO SCH (11:26)
[2021-04-20] MEDS: ASPIRIN EC 81 MG TAB PO SCH (11:26)
--- NOTE | 2021-04-20 11:41 | Discharge Summary ---
Providers - Providers Date of Admission: 04/17/21 18:12 Attending physician: NICANOR MILIAN 04/16/21 Consult to Cardiac Rehabilitation [CONS] Routine Reason For Exam: Phase I 04/16/21 22:14 Consult to Dietitian/Nutrition [CONS] Routine Physician Instructions: Reason For Exam: Reason for Consult: Diet education 04/18/21 08:18 Consult to Physician [CONS] Routine Comment: Consulting Provider: MADDIE RODRIGUEZ Physician Instructions: Reason For Exam: Intermittent chest pain/risk factors Primary care physician: CONVOLUTE TUBE WINDER Hospitalization Condition: Fair Exam - Constitutional Vitals: Temp Pulse Resp BP Pulse Ox 97.6 F 88 16 114/71 99 04/20/21 08:13 04/20/21 08:13 04/20/21 08:13 04/20/21 08:13 04/20/21 08:13 Plan Follow up with: MAGDALENA DANIEL MD [Primary Care Provider] - 3-5 Days AARTI IVERSON MD [Staff Physician] - 7 Days Prescriptions: Pen Needle, Diabetic [1St Tier Unifine Pentips Plus] 1 each ACHS #100 dis.needle Insulin Glargine,Hum.rec.anlog [Basaglar Kwikpen U-100] 50 unit SQ BID #5 insuln.pen AtorvaSTATin [Lipitor] 40 mg PO QHS #30 tablet Insulin Aspart (Nf) [NovoLOG Flexpen] 25 units SQ AC #5 pen Pantoprazole [Protonix TAB] 40 mg PO QDAY #30 tablet
--- NOTE | 2021-04-20 12:12 | Ultrasound Report ---
ULTRASOUND ABDOMEN, LIMITED (RIGHT UPPER QUADRANT) INDICATION: Epigastric pain. COMPARISON: 04/18/2021 FINDINGS: Pancreas: Not well seen. The imaged portions are unremarkable. Liver: The liver is increased in echogenicity and is mildly heterogeneous Gallbladder: There is a small amount of sludge in the lumen of the gallbladder. No gallstones are see n. Bile ducts: Normal. Common Bile Duct measures 2 mm. Free fluid: None. Additional Findings: None. IMPRESSION: 1. The liver is increased in echogenicity and mildly heterogeneous. This appears unchanged prior stud y. 2. There is a small amount of sludge in the lumen of the gallbladder. No gallstones are seen on today 's study. Signer Name: Luis Martini MD Signed: 04/20/2021 12:07 PM Workstation Name: [id number]
== END 2021-04-20 13:45 | disposition home or self-care (01) | DRG 74 ==
LOC: ED 15:23 → 4A 18:12 → OBSVTOIN 04-17 18:12 → UNDODISIN 04-17 18:31
PROVIDERS: ADMIT Hospitalist; ATTEND Internal Medicine
DX: G90.8 Other disorders of autonomic nervous system (principal); E87.1 Hypo-osmolality and hyponatremia; E10.65 Type 1 diabetes mellitus with hyperglycemia; R07.89 Other chest pain; M19.90 Unspecified osteoarthritis, unspecified site; F17.200 Nicotine dependence, unspecified, uncomplicated; Z79.4 Long term (current) use of insulin; Z88.6 Allergy status to analgesic agent
CPT/HCPCS: 36415; 70450; 71045; 71275; 76700; 76705; 80048; 80053; 82550; 82553; 82805; 82962; 83036; 84443; 84484; 85025; 85379; 93005; 93306; 93880; 99285; G0378; Q9967; J1644; J1815; J1885; J2270; J7040